=== PATIENT | female | born 1990 | race Caucasian/White ===

== ENCOUNTER 2016-11-20 07:37 | Emergency (ER) | payer BC, OTHER ==
[2016-11-20] MEDS ORDERED: ONDANSETRON 4 MG/2 ML VIAL IVP STA (08:21)
[2016-11-20] MEDS ORDERED: HYDROmorphone 1 MG/ML 1 ML SYRINGE IVP STA ×2 (08:21→11:20)
--- NOTE | 2016-11-20 08:28 | ED ---
Abdominal Pain HPI - General Chief Complaint: Abdominal Pain Stated Complaint: vomiting, abd pain Time Seen by Provider: 11/20/16 08:13 Source: patient, family, RN notes reviewed Mode of arrival: wheelchair Limitations: no limitations - History of Present Illness Initial Comments: Patient is a 26-year-old female presents to the emergency room for evaluation of abdominal pain. Patient states been having on and off pain for the past month. Patient a she's been to [facility] and [facility] for the same issue. Patient states pain began around 4 AM this morning. Patient states she's been vomiting since 4 AM. Patient states the vomiting worsens her pain. Patient also states she began with vaginal bleeding this morning. Patient states her last menstrual period was 2 weeks ago. Patient states in April she was told by her TECHNOLOGY AUDITOR that she had ovarian cyst. Patient states she thinks her ovarian cyst ruptured. Patient denies pain or burning during urination, trouble urinating or blood in urine. Patient denies any history of abdominal surgeries. Patient states the pain is diffuse across her abdomen. Patient states the pain comes in waves. Patient states she was going to try to follow-up with her TECHNOLOGY AUDITOR this morning but the pain got too intense so she came here to be evaluated. Patient denies fevers, chills, weakness. Patient denies diarrhea. Patient denies trying new foods. Patient denies recent travel outside the country. - Related Data Home Medications Medication Instructions Recorded Confirmed ALPRAZolam [Xanax] 0.25 mg PO Q8HR PRN 09/14/15 11/20/16 Escitalopram Oxalate [Escitalopram 20 mg PO DAILY 11/20/16 11/20/16 Oxalate] Famotidine [Famotidine] 20 mg PO DAILY 11/20/16 11/20/16 Norethindrone [Norethindrone] 0.35 mg PO DAILY 11/20/16 11/20/16 Ondansetron Odt [Zofran ODT] 4 mg PO TID PRN 11/20/16 11/20/16 Previous Rx's Medication Instructions Recorded Acetaminophen with Codeine 1 tab PO Q4H PRN #12 tab 11/20/16 [Tylenol w/codeine #3] Allergies Allergy/AdvReac Type Severity Reaction Status Date / Time Sulfa (Sulfonamide Allergy Dyspnea Verified 11/20/16 08:52 Antibiotics) Review of Systems ROS Statement: Those systems with pertinent positive or pertinent negative responses have been documented in the HPI. ROS Other: All systems not noted in ROS Statement are negative. Past Medical History Past Medical History: No Reported History Additional Past Medical History / Comment(s): ovarian cysts History of Any Multi-Drug Resistant Organisms: None Reported Past Surgical History: Adenoidectomy Past Psychological History: Anxiety, Depression Smoking Status: Former smoker Past Alcohol Use History: None Reported Past Drug Use History: Marijuana General Exam - General Exam Comments Initial Comments: Laying in exam room, uncomfortable secondary to pain Limitations: no limitations General appearance: alert, in no apparent distress Head exam: Present: atraumatic, normocephalic, normal inspection Eye exam: Present: normal appearance ENT exam: Present: normal exam Neck exam: Present: normal inspection Respiratory exam: Present: normal lung sounds bilaterally. Absent: respiratory distress Cardiovascular Exam: Present: regular rate, normal rhythm, normal heart sounds GI/Abdominal exam: Present: soft, tenderness (RLQ), normal bowel sounds. Absent : distended, guarding, rebound, rigid External exam: Present: normal external exam Speculum exam: Present: vaginal bleeding By manual exam: Present: adnexal tenderness (right) Extremities exam: Present: normal inspection Back exam: Present: normal inspection Neurological exam: Present: alert, oriented X3, CN II-XII intact, normal gait Psychiatric exam: Present: normal affect, normal mood Skin exam: Present: warm, dry, intact, normal color. Absent: rash Course Vital Signs 11/20/16 11/20/16 07:39 10:58 Temperature 97.1 F L 98 F Pulse Rate 69 66 Respiratory 22 16 Rate Blood Pressure 137/79 116/69 O2 Sat by Pulse 98 98 Oximetry Medical Decision Making - Medical Decision Making Patient is a 26-year-old female presents emergency room for evaluation of abdominal pain, nausea and vomiting. Gallbladder and appendix ultrasound showed no concerning findings. Transvaginal ultrasound: There is 3.47 L simple appearing cyst right ovary. There is small amount of free fluid in the pelvic cul-de-sac, nonspecific finding. Differential includes recent ovarian cyst rupture. Urine test negative. Patient states feeling better after medications given. Will send patient home with medications and advised her to follow-up with her TECHNOLOGY AUDITOR. Patient states she understands everything that was discussed with her. Return parameters discussed. Case discussed with Dr. Caballero. - Lab Data Result diagrams: 11/20/16 07:56 11/20/16 07:56 Lab Results 11/20/16 11/20/16 11/20/16 Range/Units 07:56 07:56 07:56 WBC 12.5 H (3.8-10.6) k/uL RBC 4.69 (3.80-5.40) m/uL Hgb 13.7 (11.4-16.0) gm/dL Hct 41.1 (34.0-46.0) % MCV 87.6 (80.0-100.0) fL MCH 29.2 (25.0-35.0) pg MCHC 33.4 (31.0-37.0) g/dL RDW 14.6 (11.5-15.5) % Plt Count 324 (150-450) k/uL Neutrophils % (Manual) 83.0 % Lymphocytes % (Manual) 15.0 % Monocytes % (Manual) 1.0 % Eosinophils % (Manual) 1.0 % Neutrophils # (Manual) 10.4 H (1.3-7.7) k/uL Lymphocytes # (Manual) 1.9 (1.0-4.8) k/uL Monocytes # (Manual) 0.1 (0-1.0) k/uL Eosinophils # (Manual) 0.1 (0-0.7) k/uL Nucleated RBCs 0 (0-0) /100 WBC Manual Slide Review Performed RBC Morphology Normal Sodium 140 (137-145) mmol/L Potassium 3.6 (3.5-5.1) mmol/L Chloride 104 (98-107) mmol/L Carbon Dioxide 24 (22-30) mmol/L Anion Gap 12 mmol/L BUN 12 (7-17) mg/dL Creatinine 0.67 (0.52-1.04) mg/dL Est GFR (MDRD) Af Amer >60 (>60 ml/min/1.73 sqM) Est GFR (MDRD) Non-Af >60 (>60 ml/min/1.73 sqM) Glucose 117 H (74-99) mg/dL Calcium 9.3 (8.4-10.2) mg/dL Total Bilirubin 0.7 (0.2-1.3) mg/dL AST 17 (14-36) U/L ALT 30 (9-52) U/L Alkaline Phosphatase 42 (38-126) U/L Total Protein 6.7 (6.3-8.2) g/dL Albumin 4.1 (3.5-5.0) g/dL Amylase 48 (30-110) U/L Lipase 102 (23-300) U/L Urine Color Urine Appearance (Clear) Urine pH (5.0-8.0) Ur Specific [place] (1.001-1.035) Urine Protein (Negative) Urine Glucose (UA) (Negative) Urine Ketones (Negative) Urine Blood (Negative) Urine Nitrate (Negative) Urine Bilirubin (Negative) Urine Urobilinogen (<2.0) mg/dL Ur Leukocyte Esterase (Negative) Urine RBC (0-5) /hpf Urine WBC (0-5) /hpf Ur Squamous Epith Cells (0-4) /hpf Urine Mucus (None) /hpf Urine HCG, Qual (Not Detectd) Trichomonas Ag (Rapid) (Negative) 11/20/16 11/20/16 11/20/16 Range/Units 07:56 07:56 08:37 WBC (3.8-10.6) k/uL RBC (3.80-5.40) m/uL Hgb (11.4-16.0) gm/dL Hct (34.0-46.0) % MCV (80.0-100.0) fL MCH (25.0-35.0) pg MCHC (31.0-37.0) g/dL RDW (11.5-15.5) % Plt Count (150-450) k/uL Neutrophils % (Manual) % Lymphocytes % (Manual) % Monocytes % (Manual) % Eosinophils % (Manual) % Neutrophils # (Manual) (1.3-7.7) k/uL Lymphocytes # (Manual) (1.0-4.8) k/uL Monocytes # (Manual) (0-1.0) k/uL Eosinophils # (Manual) (0-0.7) k/uL Nucleated RBCs (0-0) /100 WBC Manual Slide Review RBC Morphology Sodium (137-145) mmol/L Potassium (3.5-5.1) mmol/L Chloride (98-107) mmol/L Carbon Dioxide (22-30) mmol/L Anion Gap mmol/L BUN (7-17) mg/dL Creatinine (0.52-1.04) mg/dL Est GFR (MDRD) Af Amer (>60 ml/min/1.73 sqM) Est GFR (MDRD) Non-Af (>60 ml/min/1.73 sqM) Glucose (74-99) mg/dL Calcium (8.4-10.2) mg/dL Total Bilirubin (0.2-1.3) mg/dL AST (14-36) U/L ALT (9-52) U/L Alkaline Phosphatase (38-126) U/L Total Protein (6.3-8.2) g/dL Albumin (3.5-5.0) g/dL Amylase (30-110) U/L Lipase (23-300) U/L Urine Color Red Urine Appearance Turbid H (Clear) Urine pH 8.5 H (5.0-8.0) Ur Specific [place] 1.014 (1.001-1.035) Urine Protein 1+ H (Negative) Urine Glucose (UA) Negative (Negative) Urine Ketones 1+ H (Negative) Urine Blood Large H (Negative) Urine Nitrate Negative (Negative) Urine Bilirubin Negative (Negative) Urine Urobilinogen <2.0 (<2.0) mg/dL Ur Leukocyte Esterase Small H (Negative) Urine RBC >182 H (0-5) /hpf Urine WBC 133 H (0-5) /hpf Ur Squamous Epith Cells 6 H (0-4) /hpf Urine Mucus Occasional H (None) /hpf Urine HCG, Qual Not Detected (Not Detectd) Trichomonas Ag (Rapid) Negative (Negative) Disposition Clinical Impression: Ovarian cyst, right Disposition: HOME SELF-CARE Condition: Good Instructions: Ovarian Cyst (ED) Additional Instructions: Please follow-up with TECHNOLOGY AUDITOR. Take pain medications as needed. If any new symptom arises or symptoms worsen, return to ER as soon as possible. Prescriptions: Acetaminophen with Codeine [Tylenol w/codeine #3] 1 tab PO Q4H PRN #12 tab PRN Reason: Pain Referrals: Catherine Laboy MD [Primary Care Provider] - 1-2 days Time of Disposition: 11:20
[2016-11-20 08:36] LABS: Appearance,Urine Turbid (Clear); Bilirubin,Urine Negative (Negative); Glucose,Urine (UA) Negative (Negative); Ketones,Urine 1+ (Negative); Leukocyte Esterase,Urine Small (Negative); Mucus,Urine Occasional /hpf; Nitrite,Urine Negative (Negative); PH, Urine 8.5 (5.0-8.0); Particle Count 13473; Protein,Urine 1+ (Negative); RBC,Urine >182 /hpf (0-5); Specific Gravity,Urine 1.014 (1.001-1.035); Squamous Epithelial Cell,Urine 6 /hpf (0-4); UA Billing (MACRO vs. MICRO) MICRO; Urobilinogen,Urine <2.0 mg/dL (<2.0); WBC,Urine 133 /hpf (0-5)
[2016-11-20 08:43] LABS: ALT 30 U/L (9-52); AST 17 U/L (14-36); Alkaline Phosphatase 42 U/L (38-126); Amylase 48 U/L (30-110); Anion Gap 12 mmol/L; Blood Urea Nitrogen 12 mg/dL (7-17); Calcium 9.3 mg/dL (8.4-10.2); Carbon Dioxide 24 mmol/L (22-30); Chloride 104 mmol/L (98-107); Glucose 117 mg/dL (74-99); Non-African American GFR(MDRD) >60 (>60 ml/min/1.73 sqM); Potassium 3.6 mmol/L (3.5-5.1); Sodium 140 mmol/L (137-145); Total Bilirubin 0.7 mg/dL (0.2-1.3); Total Protein 6.7 g/dL (6.3-8.2)
[2016-11-20 08:48] LABS: Aty Lym Flag Slight; CH 29.8; CHCM 34.2; HCT 41.1 % (34.0-46.0); HDW 2.62; HGB 13.7 gm/dL (11.4-16.0); MCH 29.2 pg (25.0-35.0); MCHC 33.4 g/dL (31.0-37.0); MCV 87.6 fL (80.0-100.0); Mean Platelet Volume 7.1; RBC 4.69 m/uL (3.80-5.40); RDW 14.6 % (11.5-15.5); WBC 12.5 k/uL (3.8-10.6); WBC (Perox) 12.46
[2016-11-20] MEDS ORDERED: METOCLOPRAMIDE 5 MG/ML 2 ML VIAL IVP STA (09:00)
[2016-11-20] MEDS ORDERED: SODIUM CHLORIDE 0.9% 1,000 ML IV ONE (09:00)
[2016-11-20 09:01] LABS: Add Differential Manual Differential
[2016-11-20] MEDS ORDERED: PROMETHAZINE INJ 12.5 MG in SODIUM CHLORIDE 0.9% 50 ML IVPB STA (09:01)
[2016-11-20 09:03] LABS: Manual Review Performed; Nucleated Red Blood Cells 0 /100 WBC (0-0); Total Cells Counted 100
[2016-11-20 09:05] LABS: RBC Morphology Normal
[2016-11-20] MEDS ORDERED: KETOROLAC 30 MG/ML 1 ML VIAL IVP STA (10:05)
--- NOTE | 2016-11-20 10:25 | US ---
EXAMINATION TYPE: US abdomen limited DATE OF EXAM: 11/20/2016 9:29 AM COMPARISON: NONE CLINICAL HISTORY: Pain. Pelvic pain, nausea and vomiting EXAM MEASUREMENTS: Liver Length: 14.6 cm Gallbladder Wall: 0.3 cm CBD: 0.3 cm Right Kidney: 11.4 x 4.7 x 4.0 cm TECHNOLOGIST IMPRESSION: Pancreas: appears wnl Liver: wnl Gallbladder: no evidence of stones Evidence for sonographic Lara's sign: no CBD: wnl Right Kidney: no evidence of hydronephrosis Pancreas appears within normal limits on images saved. IVC is seen near hepatic dome. Visualized live r is unremarkable. Common bile duct is not dilated. Gallbladder is seen with prominent fold or phrygi an cap. No shadowing mobile gallstones are identified. IMPRESSION: No gallstones or ultrasound evidence for acute cholecystitis.
--- NOTE | 2016-11-20 10:29 | US ---
EXAMINATION TYPE: US transvaginal DATE OF EXAM: 11/20/2016 9:50 AM COMPARISON: NONE CLINICAL HISTORY: Pain. Pelvic pain, nausea and vomiting, irregular menses TECHNIQUE: Transvaginal (TV) Date of LMP: 2-3 weeks ago EXAM MEASUREMENTS: Uterus: 8.4 x 4.1 x 4.6 cm Endometrial Stripe: 0.5 cm Right Ovary: 4.7 x 3.5 x 3.2 cm Left Ovary: 3.2 x 1.7 x 1.7 cm TECHNOLOGIST IMPRESSION: 1. Uterus: Anteverted 2. Endometrium: appears wnl 3. Right Ovary: cystic area = 3.4 x 3.0 x 3.3cm 4. Left Ovary: appears wnl Spectral, color and waveform doppler imaging shows good arterial and venous flow within the ovaries ; . 5. Bilateral Adnexa: wnl 6. Posterior cul-de-sac: small amount of free fluid Uterus is heterogeneous in appearance. Tiny nabothian cyst is seen in the cervix. Tiny amount of free fluid is seen in pelvic cul-de-sac. Nonspecific finding. Both ovaries are identified. Within right ovary there is 3.4 x 3.0 cm round anechoic lesion with incr eased through transmission felt to reflect simple cyst Satisfactory blood flow to both ovaries is see n.. Arterial flow to right ovary is documented on still images. IMPRESSION: There is 3.4 cm simple appearing cyst right ovary. There is small amount of free fluid in pelvic cul-de-sac, nonspecific finding. Differential includes recent ovarian cyst rupture.
--- NOTE | 2016-11-20 10:30 | US ---
EXAMINATION TYPE: US abdomen APPY DATE OF EXAM: 11/20/2016 9:40 AM COMPARISON: NONE CLINICAL HISTORY: Pain. Pelvic pain, nausea and vomiting APPENDIX AP Diameter (normal < 6mm): 0.4 mm Measured outer wall to outer wall. Is the appendix seen in its entirety from the proximal cecum to distal end: no, tubular structure no ry = 0.4cm, possible appendix Is the appendix compressible: yes Does the appendix wall appear hypervascular: no Is an appendicolith present: no Is there inflammatory changes or free fluid present: no TECHNOLOGIST IMPRESSION: Scanning of the right lower quadrant shows partial visualization of tubular shaped structure measurin g 4 mm in diameter could reflect portion of normal-appearing appendix. No suspicious hypervascularity is identified. No worrisome focal fluid collection is seen. No shadowing appendicolith is noted. IMPRESSION: No ultrasound evidence for acute appendicitis though the appendix is not completely imag ed in its entirety.
[2016-11-20 10:59] VITALS: BP 116/69; PULSE 66; RESP 16; TEMP 98
== END 2016-11-20 11:35 | disposition home or self-care (01) ==
LOC: EC 07:37
DX: N83.201 Unspecified ovarian cyst, right side (principal); R10.84 Generalized abdominal pain; R11.10 Vomiting, unspecified; F32.9 Major depressive disorder, single episode, unspecified; F41.9 Anxiety disorder, unspecified; Z32.02 Encounter for pregnancy test, result negative; Z79.899 Other long term (current) drug therapy; Z88.2 Allergy status to sulfonamides
CPT/HCPCS: 99284; 36415; 80053; 87591; 87491; 82150; 83690; 85025; 81001; 81025; 87808; 87070; 76705; 76830; 96374; 96375 ×3; 96376; 96361; J2550; J2405; J1885; J1170; 87205; 93975

== ENCOUNTER 2016-11-22 07:01 | Emergency (ER) | payer OTHER ==
[2016-11-22] MEDS ORDERED: SODIUM CHLORIDE 0.9% 1,000 ML IV STA (07:44)
[2016-11-22] MEDS ORDERED: ONDANSETRON 4 MG/2 ML VIAL IVP STA (07:44)
[2016-11-22] MEDS ORDERED: SODIUM CHLORIDE 0.9% 500 ML IV STA (07:44)
[2016-11-22] MEDS ORDERED: MORPHINE SULFATE 4 MG/ML SYRINGE IV STA (07:44)
[2016-11-22] MEDS ORDERED: LORazepam 2 MG/ML SYRINGE IV STA (07:45)
[2016-11-22] MEDS ORDERED: PANTOPRAZOLE 40 MG/10 ML VIAL IVP STA (07:45)
[2016-11-22] MEDS ORDERED: RX INFO: IV CONTRAST WAS GIVEN 1 EACH MISC MISCELLANE PRN (07:52)
[2016-11-22 08:13] LABS: Partial Thromboplastin Time 24.2 sec (22.0-30.0)
[2016-11-22 08:14] LABS: Aty Lym Flag Slight; CHCM 33.5; HCT 41.2 % (34.0-46.0); HDW 2.54; HGB 13.3 gm/dL (11.4-16.0); MCH 29.1 pg (25.0-35.0); MCHC 32.3 g/dL (31.0-37.0); Mean Platelet Volume 7.4; RBC 4.58 m/uL (3.80-5.40); RDW 14.5 % (11.5-15.5); WBC 12.1 k/uL (3.8-10.6); WBC (Perox) 12.39
[2016-11-22 08:15] LABS: INR 1.1 (<1.1); Prothrombin Time 10.9 sec (9.0-12.0)
[2016-11-22 08:21] LABS: ALT 26 U/L (9-52); AST 14 U/L (14-36); Alkaline Phosphatase 35 U/L (38-126); Anion Gap 8 mmol/L; Blood Urea Nitrogen 18 mg/dL (7-17); Carbon Dioxide 28 mmol/L (22-30); Chloride 103 mmol/L (98-107); Glucose 94 mg/dL (74-99); Non-African American GFR(MDRD) >60 (>60 ml/min/1.73 sqM); Phosphorous 2.7 mg/dL (2.5-4.5); Potassium 3.9 mmol/L (3.5-5.1); Sodium 139 mmol/L (137-145); Total Bilirubin 0.4 mg/dL (0.2-1.3); Total Protein 6.2 g/dL (6.3-8.2)
[2016-11-22 08:34] LABS: Creatine Kinase 46 U/L (30-135)
[2016-11-22 08:48] LABS: Add Differential Manual Differential; Creatine Kinase MB <0.2 ng/mL (0.0-2.4); Troponin I <0.012 ng/mL (0.000-0.034)
[2016-11-22 08:49] LABS: Manual Review Performed; Nucleated Red Blood Cells 0 /100 WBC (0-0); Total Cells Counted 100
[2016-11-22 08:50] LABS: RBC Morphology Normal
[2016-11-22 08:59] LABS: Amorphous Sediment,Urine Occasional /hpf; Appearance,Urine Cloudy (Clear); Bilirubin,Urine Negative (Negative); Glucose,Urine (UA) Negative (Negative); Ketones,Urine Negative (Negative); Leukocyte Esterase,Urine Negative (Negative); Nitrite,Urine Negative (Negative); PH, Urine 7.5 (5.0-8.0); Particle Count 21047; Protein,Urine Negative (Negative); Specific Gravity,Urine 1.008 (1.001-1.035); Squamous Epithelial Cell,Urine 1 /hpf (0-4); UA Billing (MACRO vs. MICRO) MICRO; Urobilinogen,Urine <2.0 mg/dL (<2.0)
[2016-11-22] MEDS ORDERED: diphenhydrAMINE 50 MG/ML 1 ML VIAL IVP STA (09:27)
[2016-11-22] MEDS ORDERED: MORPHINE SULFATE 4 MG/ML SYRINGE IVP STA (09:27)
[2016-11-22] MEDS ORDERED: METOCLOPRAMIDE 5 MG/ML 2 ML VIAL IVP STA (09:27)
--- NOTE | 2016-11-22 09:46 | CT ---
EXAMINATION TYPE: CT abdomen pelvis w con DATE OF EXAM: 11/22/2016 9:33 AM HISTORY: Pain, nausea and vomiting, recent ruptured ovarian cyst CT DLP: 432mGycm Automated Exposure Control for Dose Reduction was Utilized. CONTRAST: CT scan of the abdomen and pelvis is performed without oral but with IV Contrast, patient injected wi th 100 mL of Omnipaque 300. COMPARISON: Limited abdominal, appendix, and pelvic ultrasound November 20, 2016. FINDINGS: LUNG BASES: No significant abnormality is appreciated. LIVER/GB: No significant abnormality is appreciated. PANCREAS: No significant abnormality is seen. SPLEEN: No significant abnormality is seen. ADRENALS: No significant abnormality is seen. KIDNEYS: No significant abnormality is seen. BOWEL: Evaluation of bowel is suboptimal due to lack of enteric contrast. There is no suspicious smal l or large bowel dilatation seen. Appendix appears within normal limits in size from the cecum seen b est near axial image 58 and also identified on coronal images 17 through 21. There is small bowel fec es sign involving the distal ileum. There is ill-defined fluid and fat stranding centered in the righ t lower quadrant of uncertain etiology. No well-formed fluid collection or abscess seen. UTERUS/ADNEXA: Uterus is anteverted in shape and within normal limits in size. Tiny amount of free fl uid is seen in pelvis best near axial image 67 just anterior to the rectum. Corresponding to recent u ltrasound there is cystic lesion right ovary measuring 3.1 x 2.9 cm correlates with simple appearing cyst on ultrasound 2 days ago. No left adnexal mass is present. Tubular shaped gas-filled structure i n the vaginal canal is consistent with tampon. LYMPH NODES: No greater than 1cm abdominal or pelvic lymph nodes are appreciated. OSSEOUS STRUCTURES: No significant abnormality is seen. OTHER: No significant additional abnormality is seen. IMPRESSION: Appendix is not suspiciously dilated or thickened. There is a small bowel feces sign cons istent with delayed passage of ingested material to colonic level. No suspicious bowel dilatation is seen to suggest obstruction. Tiny amount of free fluid in pelvis is nonspecific. A 3 cm simple appear ing right ovarian cyst is confirmed. Ill-defined fluid right lower quadrant is suspicious for inflamm atory process at this level though etiology is uncertain due to unremarkable appearance of appendix a t this level. One would have to consider possibly a tip appendicitis.
--- NOTE | 2016-11-22 09:49 | ED ---
General Adult HPI - General Chief complaint: Abdominal Pain Stated complaint: Vomiting/Abdominal Pain Time Seen by Provider: 11/22/16 07:15 Source: patient, RN notes reviewed, old records reviewed Mode of arrival: wheelchair Limitations: no limitations - History of Present Illness Initial comments: This is a 26-year-old female here for abdominal pain bowel and pelvic pain. Nausea vomiting. Patient's not feeling well. Patient's had been actively vomiting for about 2 days. Patient was in the ER 2 days ago for similar symptoms. No diarrhea no fevers. No travel history or sick contacts, patient did have ovarian cyst at that time no pain control modifying factors for symptoms at home. Patient denies history of drug abuse - Related Data Home Medications Medication Instructions Recorded Confirmed ALPRAZolam [Xanax] 0.25 mg PO Q8HR PRN 09/14/15 11/22/16 Escitalopram Oxalate [Escitalopram 20 mg PO DAILY 11/20/16 11/22/16 Oxalate] Famotidine [Famotidine] 20 mg PO DAILY 11/20/16 11/22/16 Norethindrone [Norethindrone] 0.35 mg PO DAILY 11/20/16 11/22/16 Ondansetron Odt [Zofran ODT] 4 mg PO TID PRN 11/20/16 11/22/16 Previous Rx's Medication Instructions Recorded Acetaminophen with Codeine 1 tab PO Q4H PRN #12 tab 11/20/16 [Tylenol w/codeine #3] Allergies Allergy/AdvReac Type Severity Reaction Status Date / Time Sulfa (Sulfonamide Allergy Dyspnea Verified 11/22/16 09:01 Antibiotics) Review of Systems ROS Statement: Those systems with pertinent positive or pertinent negative responses have been documented in the HPI. ROS Other: All systems not noted in ROS Statement are negative. Past Medical History Past Medical History: No Reported History Additional Past Medical History / Comment(s): ovarian cysts History of Any Multi-Drug Resistant Organisms: None Reported Past Surgical History: Adenoidectomy Past Psychological History: Anxiety, Depression Smoking Status: Former smoker Past Alcohol Use History: None Reported Past Drug Use History: Marijuana General Exam Limitations: no limitations General appearance: alert, in no apparent distress Head exam: Present: atraumatic, normocephalic, normal inspection Eye exam: Present: normal appearance, PERRL, EOMI. Absent: scleral icterus, conjunctival injection, periorbital swelling ENT exam: Present: normal exam, mucous membranes moist Neck exam: Present: normal inspection. Absent: tenderness, meningismus, lymphadenopathy Respiratory exam: Present: normal lung sounds bilaterally. Absent: respiratory distress, wheezes, rales, rhonchi, stridor Cardiovascular Exam: Present: regular rate, normal rhythm, normal heart sounds. Absent: systolic murmur, diastolic murmur, rubs, gallop, clicks GI/Abdominal exam: Present: soft, normal bowel sounds. Absent: distended, tenderness, guarding, rebound, rigid Extremities exam: Present: normal inspection, full ROM, normal capillary refill. Absent: tenderness, pedal edema, joint swelling, calf tenderness Back exam: Present: normal inspection Neurological exam: Present: alert, oriented X3, CN II-XII intact Psychiatric exam: Present: normal affect, normal mood Skin exam: Present: warm, dry, intact, normal color. Absent: rash Course Vital Signs 11/22/16 07:22 Temperature 97.7 F Pulse Rate 102 H Respiratory 20 Rate Blood Pressure 144/92 O2 Sat by Pulse 98 Oximetry - Reevaluation(s) Reevaluation #1: 11/22/16 09:48 Patient not having good and adequate pain control and nausea control Reevaluation #2: 11/22/16 09:48 After second dosing of medications patient's symptoms are improved Medical Decision Making - Medical Decision Making 26 for female here for evaluation of nausea vomiting. Patient's gastroenteritis , patient with acute nausea and vomiting. CT is negative ultrasound from yesterday labwork as noted, as well as laboratory, patient CT is also noted from today and patient can be discharged home - Lab Data Result diagrams: 11/22/16 07:46 11/22/16 07:46 Lab Results 11/22/16 11/22/16 11/22/16 Range/Units 07:46 07:46 07:46 WBC 12.1 H (3.8-10.6) k/uL RBC 4.58 (3.80-5.40) m/uL Hgb 13.3 (11.4-16.0) gm/dL Hct 41.2 (34.0-46.0) % MCV 90.0 (80.0-100.0) fL MCH 29.1 (25.0-35.0) pg MCHC 32.3 (31.0-37.0) g/dL RDW 14.5 (11.5-15.5) % Plt Count 298 (150-450) k/uL Neutrophils % (Manual) 68.0 % Band Neutrophils % 2.0 % Lymphocytes % (Manual) 20.0 % Monocytes % (Manual) 7.0 % Eosinophils % (Manual) 3.0 % Neutrophils # (Manual) 8.5 H (1.3-7.7) k/uL Lymphocytes # (Manual) 2.4 (1.0-4.8) k/uL Monocytes # (Manual) 0.8 (0-1.0) k/uL Eosinophils # (Manual) 0.4 (0-0.7) k/uL Nucleated RBCs 0 (0-0) /100 WBC Manual Slide Review Performed RBC Morphology Normal PT (9.0-12.0) sec INR (<1.1) APTT (22.0-30.0) sec Sodium 139 (137-145) mmol/L Potassium 3.9 (3.5-5.1) mmol/L Chloride 103 (98-107) mmol/L Carbon Dioxide 28 (22-30) mmol/L Anion Gap 8 mmol/L BUN 18 H (7-17) mg/dL Creatinine 0.67 (0.52-1.04) mg/dL Est GFR (MDRD) Af Amer >60 (>60 ml/min/1.73 sqM) Est GFR (MDRD) Non-Af >60 (>60 ml/min/1.73 sqM) Glucose 94 (74-99) mg/dL Plasma Lactic Acid Jean-Paul (0.7-2.0) mmol/L Calcium 9.0 (8.4-10.2) mg/dL Phosphorus 2.7 (2.5-4.5) mg/dL Total Bilirubin 0.4 (0.2-1.3) mg/dL AST 14 (14-36) U/L ALT 26 (9-52) U/L Alkaline Phosphatase 35 L (38-126) U/L Total Creatine Kinase 46 (30-135) U/L CK-MB (CK-2) <0.2 (0.0-2.4) ng/mL CK-MB (CK-2) Rel Index Troponin I <0.012 (0.000-0.034) ng/mL Total Protein 6.2 L (6.3-8.2) g/dL Albumin 3.7 (3.5-5.0) g/dL Urine Color Urine Appearance (Clear) Urine pH (5.0-8.0) Ur Specific [place] (1.001-1.035) Urine Protein (Negative) Urine Glucose (UA) (Negative) Urine Ketones (Negative) Urine Blood (Negative) Urine Nitrite (Negative) Urine Bilirubin (Negative) Urine Urobilinogen (<2.0) mg/dL Ur Leukocyte Esterase (Negative) Ur Squamous Epith Cells (0-4) /hpf Amorphous Sediment (None) /hpf Urine HCG, Qual (Not Detectd) 11/22/16 11/22/16 11/22/16 Range/Units 07:46 08:04 08:45 WBC (3.8-10.6) k/uL RBC (3.80-5.40) m/uL Hgb (11.4-16.0) gm/dL Hct (34.0-46.0) % MCV (80.0-100.0) fL MCH (25.0-35.0) pg MCHC (31.0-37.0) g/dL RDW (11.5-15.5) % Plt Count (150-450) k/uL Neutrophils % (Manual) % Band Neutrophils % % Lymphocytes % (Manual) % Monocytes % (Manual) % Eosinophils % (Manual) % Neutrophils # (Manual) (1.3-7.7) k/uL Lymphocytes # (Manual) (1.0-4.8) k/uL Monocytes # (Manual) (0-1.0) k/uL Eosinophils # (Manual) (0-0.7) k/uL Nucleated RBCs (0-0) /100 WBC Manual Slide Review RBC Morphology PT 10.9 (9.0-12.0) sec INR 1.1 (<1.1) APTT 24.2 (22.0-30.0) sec Sodium (137-145) mmol/L Potassium (3.5-5.1) mmol/L Chloride (98-107) mmol/L Carbon Dioxide (22-30) mmol/L Anion Gap mmol/L BUN (7-17) mg/dL Creatinine (0.52-1.04) mg/dL Est GFR (MDRD) Af Amer (>60 ml/min/1.73 sqM) Est GFR (MDRD) Non-Af (>60 ml/min/1.73 sqM) Glucose (74-99) mg/dL Plasma Lactic Acid Jean-Paul 2.0 (0.7-2.0) mmol/L Calcium (8.4-10.2) mg/dL Phosphorus (2.5-4.5) mg/dL Total Bilirubin (0.2-1.3) mg/dL AST (14-36) U/L ALT (9-52) U/L Alkaline Phosphatase (38-126) U/L Total Creatine Kinase (30-135) U/L CK-MB (CK-2) (0.0-2.4) ng/mL CK-MB (CK-2) Rel Index Troponin I (0.000-0.034) ng/mL Total Protein (6.3-8.2) g/dL Albumin (3.5-5.0) g/dL Urine Color Light Yellow Urine Appearance Cloudy H (Clear) Urine pH 7.5 (5.0-8.0) Ur Specific [place] 1.008 (1.001-1.035) Urine Protein Negative (Negative) Urine Glucose (UA) Negative (Negative) Urine Ketones Negative (Negative) Urine Blood Trace H (Negative) Urine Nitrite Negative (Negative) Urine Bilirubin Negative (Negative) Urine Urobilinogen <2.0 (<2.0) mg/dL Ur Leukocyte Esterase Negative (Negative) Ur Squamous Epith Cells 1 (0-4) /hpf Amorphous Sediment Occasional H (None) /hpf Urine HCG, Qual (Not Detectd) 11/22/16 Range/Units 08:45 WBC (3.8-10.6) k/uL RBC (3.80-5.40) m/uL Hgb (11.4-16.0) gm/dL Hct (34.0-46.0) % MCV (80.0-100.0) fL MCH (25.0-35.0) pg MCHC (31.0-37.0) g/dL RDW (11.5-15.5) % Plt Count (150-450) k/uL Neutrophils % (Manual) % Band Neutrophils % % Lymphocytes % (Manual) % Monocytes % (Manual) % Eosinophils % (Manual) % Neutrophils # (Manual) (1.3-7.7) k/uL Lymphocytes # (Manual) (1.0-4.8) k/uL Monocytes # (Manual) (0-1.0) k/uL Eosinophils # (Manual) (0-0.7) k/uL Nucleated RBCs (0-0) /100 WBC Manual Slide Review RBC Morphology PT (9.0-12.0) sec INR (<1.1) APTT (22.0-30.0) sec Sodium (137-145) mmol/L Potassium (3.5-5.1) mmol/L Chloride (98-107) mmol/L Carbon Dioxide (22-30) mmol/L Anion Gap mmol/L BUN (7-17) mg/dL Creatinine (0.52-1.04) mg/dL Est GFR (MDRD) Af Amer (>60 ml/min/1.73 sqM) Est GFR (MDRD) Non-Af (>60 ml/min/1.73 sqM) Glucose (74-99) mg/dL Plasma Lactic Acid Jean-Paul (0.7-2.0) mmol/L Calcium (8.4-10.2) mg/dL Phosphorus (2.5-4.5) mg/dL Total Bilirubin (0.2-1.3) mg/dL AST (14-36) U/L ALT (9-52) U/L Alkaline Phosphatase (38-126) U/L Total Creatine Kinase (30-135) U/L CK-MB (CK-2) (0.0-2.4) ng/mL CK-MB (CK-2) Rel Index Troponin I (0.000-0.034) ng/mL Total Protein (6.3-8.2) g/dL Albumin (3.5-5.0) g/dL Urine Color Urine Appearance (Clear) Urine pH (5.0-8.0) Ur Specific [place] (1.001-1.035) Urine Protein (Negative) Urine Glucose (UA) (Negative) Urine Ketones (Negative) Urine Blood (Negative) Urine Nitrite (Negative) Urine Bilirubin (Negative) Urine Urobilinogen (<2.0) mg/dL Ur Leukocyte Esterase (Negative) Ur Squamous Epith Cells (0-4) /hpf Amorphous Sediment (None) /hpf Urine HCG, Qual Not Detected (Not Detectd) - Radiology Data Radiology results: report reviewed (CT head and pelvis is negative for acute disease), image reviewed Disposition Clinical Impression: Nausea & vomiting Disposition: HOME SELF-CARE Condition: Good Instructions: Acute Nausea and Vomiting (ED) Referrals: Catherine Laboy MD [Primary Care Provider] - 1-2 days
[2016-11-22 10:21] VITALS: BP 146/90; PULSE 86; RESP 16; TEMP 97.9
== END 2016-11-22 10:21 | disposition home or self-care (01) ==
LOC: EC 07:01
DX: K52.9 Noninfective gastroenteritis and colitis, unspecified (principal); F41.9 Anxiety disorder, unspecified; F32.9 Major depressive disorder, single episode, unspecified; Z87.891 Personal history of nicotine dependence; Z79.899 Other long term (current) drug therapy; Z79.3 Long term (current) use of hormonal contraceptives; Z88.2 Allergy status to sulfonamides
CPT/HCPCS: 96375 ×6; 96376 ×2; 96361 ×2; 96374 ×2; 99285; 99284; 36415; 93005; 80053; 82550; 82553; 83605; 84100; 84484; 85025; 85610; 85730; 81001; 81025; 87086; 74177; J2060; J2270; J1200; J2765; J2405; Q9967; C9113

== ENCOUNTER 2017-09-20 10:18 | Emergency (ER) | payer OTHER ==
[2017-09-20] MEDS ORDERED: ONDANSETRON 4 MG/2 ML VIAL IVP STA (10:26)
[2017-09-20] MEDS ORDERED: SODIUM CHLORIDE 0.9% 2,000 ML IV STA (10:26)
[2017-09-20] MEDS ORDERED: FAMOTIDINE 20 MG/2 ML VIAL IV STA (11:08)
[2017-09-20 11:27] LABS: Appearance,Urine Clear (Clear); Bilirubin,Urine Negative (Negative); Blood,Urine Negative (Negative); Color,Urine Yellow; Glucose,Urine (UA) Negative (Negative); Ketones,Urine 4+ (Negative); Leukocyte Esterase,Urine Negative (Negative); Nitrite,Urine Negative (Negative); Protein,Urine Trace (Negative); Specific Gravity,Urine 1.022 (1.001-1.035); Urobilinogen,Urine <2.0 mg/dL (<2.0)
[2017-09-20 11:36] LABS: ALT 32 U/L (9-52); AST 19 U/L (14-36); Alkaline Phosphatase 40 U/L (38-126); Amylase 55 U/L (30-110); Anion Gap 9 mmol/L; Blood Urea Nitrogen 12 mg/dL (7-17); Calcium 9.2 mg/dL (8.4-10.2); Carbon Dioxide 23 mmol/L (22-30); Chloride 102 mmol/L (98-107); Glucose 91 mg/dL (74-99); Lipase 104 U/L (23-300); Potassium 3.5 mmol/L (3.5-5.1); Sodium 134 mmol/L (137-145); Total Bilirubin 0.5 mg/dL (0.2-1.3); Total Protein 6.4 g/dL (6.3-8.2)
--- NOTE | 2017-09-20 11:45 | ED ---
Nausea/Vomiting/Diarrhea HPI - General Chief complaint: Nausea/Vomiting/Diarrhea Stated complaint: Vomiting Time Seen by Provider: 09/20/17 10:24 Source: patient, RN notes reviewed Mode of arrival: wheelchair Limitations: no limitations - History of Present Illness Initial comments: This a 27-year-old female presented emergency department with chief complaint of nausea vomiting diarrhea. Patient symptoms started vomiting yesterday. Patient states she has mild upper abdominal pain. Denies fever, chills, headache or dizziness. Denies any URI symptoms. Patient states that there is no chance . Patient states she gets depo shots. . Patient states nothing makes her symptoms better or worse. Patient offers no other complaints at this time. - Related Data Home Medications Medication Instructions Recorded Confirmed ALPRAZolam [Xanax] 0.25 mg PO Q8HR PRN 09/14/15 09/20/17 Medroxyprogesterone Acetate 150 mg IM Q90D 09/20/17 09/20/17 [Depo-Provera] Previous Rx's Medication Instructions Recorded Omeprazole 40 mg PO DAILY #14 capsule. 09/20/17 Ondansetron Odt [Zofran Odt] 4 mg PO Q8HR PRN #10 tab 09/20/17 Allergies Allergy/AdvReac Type Severity Reaction Status Date / Time Sulfa (Sulfonamide Allergy Dyspnea Verified 09/20/17 10:32 Antibiotics) Review of Systems ROS Statement: Those systems with pertinent positive or pertinent negative responses have been documented in the HPI. ROS Other: All systems not noted in ROS Statement are negative. Past Medical History Past Medical History: Asthma Additional Past Medical History / Comment(s): ovarian cysts History of Any Multi-Drug Resistant Organisms: None Reported Past Surgical History: Adenoidectomy Past Psychological History: Anxiety, Depression Smoking Status: Former smoker Past Alcohol Use History: None Reported Past Drug Use History: Marijuana General Exam Limitations: no limitations General appearance: alert, in no apparent distress Head exam: Present: atraumatic, normocephalic, normal inspection Respiratory exam: Present: normal lung sounds bilaterally. Absent: respiratory distress, wheezes, rales, rhonchi, stridor Cardiovascular Exam: Present: regular rate, normal rhythm, normal heart sounds. Absent: systolic murmur, diastolic murmur, rubs, gallop, clicks GI/Abdominal exam: Present: soft, normal bowel sounds. Absent: distended, tenderness, guarding, rebound, rigid Back exam: Absent: CVA tenderness (R), CVA tenderness (L) Skin exam: Present: warm, dry, intact, normal color. Absent: rash Course Vital Signs 09/20/17 09/20/17 10:20 11:49 Temperature 98.9 F Pulse Rate 68 Respiratory 18 19 Rate Blood Pressure 118/73 O2 Sat by Pulse 99 Oximetry Medical Decision Making - Medical Decision Making 27-year-old female presented unresponsive for nausea vomiting diarrhea. Patient symptoms are consistent with gastroenteritis. Patient was well- hydrated and she has 4+ ketones in her urine. Patient's remaining laboratory unremarkable. Patient we discharged with antiemetics and antacids. Return parameters were discussed. - Lab Data Result diagrams: 09/20/17 11:09 09/20/17 11:09 Lab Results 09/20/17 09/20/17 09/20/17 Range/Units 10:55 10:55 11:09 WBC (3.8-10.6) k/uL RBC (3.80-5.40) m/uL Hgb (11.4-16.0) gm/dL Hct (34.0-46.0) % MCV (80.0-100.0) fL MCH (25.0-35.0) pg MCHC (31.0-37.0) g/dL RDW (11.5-15.5) % Plt Count (150-450) k/uL Sodium 134 L (137-145) mmol/L Potassium 3.5 (3.5-5.1) mmol/L Chloride 102 (98-107) mmol/L Carbon Dioxide 23 (22-30) mmol/L Anion Gap 9 mmol/L BUN 12 (7-17) mg/dL Creatinine 0.66 (0.52-1.04) mg/dL Est GFR (MDRD) Af Amer >60 (>60 ml/min/1.73 sqM) Est GFR (MDRD) Non-Af >60 (>60 ml/min/1.73 sqM) Glucose 91 (74-99) mg/dL Calcium 9.2 (8.4-10.2) mg/dL Total Bilirubin 0.5 (0.2-1.3) mg/dL AST 19 (14-36) U/L ALT 32 (9-52) U/L Alkaline Phosphatase 40 (38-126) U/L Total Protein 6.4 (6.3-8.2) g/dL Albumin 4.0 (3.5-5.0) g/dL Amylase 55 (30-110) U/L Lipase 104 (23-300) U/L Urine Color Yellow Urine Appearance Clear (Clear) Urine pH 6.0 (5.0-8.0) Ur Specific [place] 1.022 (1.001-1.035) Urine Protein Trace H (Negative) Urine Glucose (UA) Negative (Negative) Urine Ketones 4+ H (Negative) Urine Blood Negative (Negative) Urine Nitrite Negative (Negative) Urine Bilirubin Negative (Negative) Urine Urobilinogen <2.0 (<2.0) mg/dL Ur Leukocyte Esterase Negative (Negative) Urine HCG, Qual Not Detected (Not Detectd) 09/20/17 Range/Units 11:09 WBC 10.4 (3.8-10.6) k/uL RBC 4.45 (3.80-5.40) m/uL Hgb 13.0 (11.4-16.0) gm/dL Hct 39.3 (34.0-46.0) % MCV 88.4 (80.0-100.0) fL MCH 29.2 (25.0-35.0) pg MCHC 33.0 (31.0-37.0) g/dL RDW 13.9 (11.5-15.5) % Plt Count 278 (150-450) k/uL Sodium (137-145) mmol/L Potassium (3.5-5.1) mmol/L Chloride (98-107) mmol/L Carbon Dioxide (22-30) mmol/L Anion Gap mmol/L BUN (7-17) mg/dL Creatinine (0.52-1.04) mg/dL Est GFR (MDRD) Af Amer (>60 ml/min/1.73 sqM) Est GFR (MDRD) Non-Af (>60 ml/min/1.73 sqM) Glucose (74-99) mg/dL Calcium (8.4-10.2) mg/dL Total Bilirubin (0.2-1.3) mg/dL AST (14-36) U/L ALT (9-52) U/L Alkaline Phosphatase (38-126) U/L Total Protein (6.3-8.2) g/dL Albumin (3.5-5.0) g/dL Amylase (30-110) U/L Lipase (23-300) U/L Urine Color Urine Appearance (Clear) Urine pH (5.0-8.0) Ur Specific [place] (1.001-1.035) Urine Protein (Negative) Urine Glucose (UA) (Negative) Urine Ketones (Negative) Urine Blood (Negative) Urine Nitrite (Negative) Urine Bilirubin (Negative) Urine Urobilinogen (<2.0) mg/dL Ur Leukocyte Esterase (Negative) Urine HCG, Qual (Not Detectd) Disposition Clinical Impression: Gastroenteritis, Abdominal pain Disposition: HOME SELF-CARE Condition: Stable Instructions: Gastroenteritis (ED) Additional Instructions: Please return to the Emergency Department if symptoms worsen or any other concerns. Prescriptions: Omeprazole 40 mg PO DAILY #14 capsule. Ondansetron Odt [Zofran Odt] 4 mg PO Q8HR PRN #10 tab PRN Reason: Nausea Referrals: Catherine Laboy MD [Primary Care Provider] - 1-2 days Time of Disposition: 12:39
[2017-09-20 11:53] LABS: Basophils % (A) 0 %; Eosinophils % (A) 0 %; HCT 39.3 % (34.0-46.0); Lymphocytes # (A) 2.3 k/uL (1.0-4.8); Lymphocytes % (A) 22 %; MCH 29.2 pg (25.0-35.0); MCV 88.4 fL (80.0-100.0); Mean Platelet Volume 7.8; Monocytes # (A) 0.6 k/uL (0-1.0); Monocytes % (A) 5 %; Neutrophils % (A) 67 %; Platelet Count 278 k/uL (150-450); RBC 4.45 m/uL (3.80-5.40); RDW 13.9 % (11.5-15.5); WBC 10.4 k/uL (3.8-10.6)
[2017-09-20] MEDS ORDERED: METOCLOPRAMIDE 5 MG/ML 2 ML VIAL IVP STA (12:17)
[2017-09-20] MEDS ORDERED: MORPHINE SULFATE 2 MG/ML SYRINGE IVP STA (12:17)
[2017-09-20 13:13] VITALS: BP 120/73; PULSE 58; RESP 18; TEMP 98.8
== END 2017-09-20 13:11 | disposition home or self-care (01) ==
LOC: EC 10:18
DX: K52.9 Noninfective gastroenteritis and colitis, unspecified (principal); Z87.891 Personal history of nicotine dependence; Z79.3 Long term (current) use of hormonal contraceptives; Z88.2 Allergy status to sulfonamides
CPT/HCPCS: 99284; 96374; 96375 ×3; 96361 ×2; 36415; 80053; 82150; 83690; 85025; 81003; 81025; J2765; J2405; J2270

== ENCOUNTER 2017-09-21 02:14 | Emergency (ER) | payer OTHER ==
[2017-09-21 02:19] VITALS: RESP 18
[2017-09-21] MEDS ORDERED: SODIUM CHLORIDE 0.9% 1,000 ML IV STA (02:29)
[2017-09-21] MEDS ORDERED: diphenhydrAMINE 50 MG/ML 1 ML VIAL IVP STA (02:29)
[2017-09-21] MEDS ORDERED: HYDROmorphone 0.5 MG/0.5 ML SYRINGE IVP STA (02:29)
[2017-09-21] MEDS ORDERED: METOCLOPRAMIDE 5 MG/ML 2 ML VIAL IVP STA (02:29)
--- NOTE | 2017-09-21 02:33 | ED ---
General Adult HPI - General Chief complaint: Abdominal Pain Stated complaint: Abdominal Pain/Vomiting Time Seen by Provider: 09/21/17 02:20 Source: patient, RN notes reviewed Mode of arrival: ambulatory Limitations: no limitations - History of Present Illness Initial comments: This is a 27-year-old female who presents to the emergency department with chief complaint of nausea, vomiting and abdominal pain. Patient states she was seen here at 11 AM yesterday with the same complaint. She was diagnosed with gastroenteritis and discharged home with omeprazole and Zofran. Patient states that since being discharged home she continues to vomit and does not feel any better. She has had these symptoms since Saturday at 2am. She states she is not feeling any better. She complains of upper abdominal pain. Denies any fever or chills. Denies any sick contacts. She states that she has a history of anxiety for which she takes Xanax. She states that she takes the Depo- Provera shot. Denies any urinary symptoms such as hematuria, frequency or dysuria. Denies chest pain, shortness of breath, constipation or diarrhea, numbness or tingling, headache or vision changes. - Related Data Home Medications Medication Instructions Recorded Confirmed ALPRAZolam [Xanax] 0.25 mg PO Q8HR PRN 09/14/15 09/21/17 Medroxyprogesterone Acetate 150 mg IM Q90D 09/20/17 09/21/17 [Depo-Provera] Previous Rx's Medication Instructions Recorded Omeprazole 40 mg PO DAILY #14 capsule. 09/20/17 Ondansetron Odt [Zofran Odt] 4 mg PO Q8HR PRN #10 tab 09/20/17 Allergies Allergy/AdvReac Type Severity Reaction Status Date / Time Sulfa (Sulfonamide Allergy Dyspnea Verified 09/20/17 10:32 Antibiotics) Review of Systems ROS Statement: Those systems with pertinent positive or pertinent negative responses have been documented in the HPI. ROS Other: All systems not noted in ROS Statement are negative. Past Medical History Past Medical History: Asthma Additional Past Medical History / Comment(s): ovarian cysts History of Any Multi-Drug Resistant Organisms: None Reported Past Surgical History: Adenoidectomy Past Psychological History: Anxiety, Depression Smoking Status: Former smoker Past Alcohol Use History: None Reported Past Drug Use History: Marijuana General Exam - General Exam Comments Initial Comments: General: Awake and alert, well-developed; appears uncomfortable and tired. HEENT: Head atraumatic, normocephalic. Pupils are equal, round and reactive to light. Extraocular movements intact. Oropharynx appears dry. Neck: Supple. Normal ROM. Cardiovascular: Regular rate and rhythm. No murmurs, rubs or gallops. Chest symmetrical. Respiratory: Lungs clear to auscultation bilaterally. No wheezes, rales or rhonchi. Normal respiratory effort with no use of accessory muscles. Abdomen: Soft, non-tender, non-distended. No rigidity, rebound or guarding. Normal bowel sounds in all 4 quadrants. Musculoskeletal: Normal ROM, no tenderness bilateral upper and lower extremities. Skin: [place], warm and dry without rashes or lesions. Neurological: Alert and oriented x3. CN II-XII grossly intact. Speech is fluent and answers are appropriate. No focal neuro deficits. Psychiatric: Normal mood and affect. No overt signs of depression or anxiety noted. Limitations: no limitations Course Vital Signs 09/21/17 09/21/17 02:16 02:50 Temperature 98.3 F Pulse Rate 62 85 Respiratory 18 18 Rate Blood Pressure 118/73 133/78 O2 Sat by Pulse 99 96 Oximetry Medical Decision Making - Medical Decision Making This is a 27-year-old female presents to the emergency department with chief complaint of nausea, vomiting and abdominal pain. Patient has generalized upper abdominal pain. She has no rigidity, rebound or guarding present. Patient was seen earlier yesterday morning a full workup was performed. All x- rays were within normal limits except for 4+ ketones in the urine. I did perform a repeat of the CBC and CMP which did come back unremarkable. Potassium was slightly decreased at 3.1. Patient given oral potassium replacement. X-ray KUB revealed a nonacute abdomen. Patient given fluids and antiemetics while in the emergency department. She will be discharged home with recommendation to follow-up with her primary care provider. Patient is in agreement with plan and voices understanding. All questions were answered. - Radiology Data Radiology results: report reviewed X-ray KUB impression: Normal abdominal x-ray. Disposition Clinical Impression: Gastroenteritis Disposition: HOME SELF-CARE Condition: Good Instructions: Acute Nausea and Vomiting (ED) Additional Instructions: Please follow up with primary care provider within 1-2 days. Return to emergency department if symptoms should worsen or any concerns arise. Referrals: Catherine Laboy MD [Primary Care Provider] - 1-2 days Time of Disposition: 03:44
[2017-09-21 03:09] LABS: HCT 39.5 % (34.0-46.0); HGB 13.5 gm/dL (11.4-16.0); MCH 29.8 pg (25.0-35.0); MCHC 34.2 g/dL (31.0-37.0); MCV 87.2 fL (80.0-100.0); Mean Platelet Volume 6.7; Platelet Count 266 k/uL (150-450); RBC 4.53 m/uL (3.80-5.40); RDW 12.6 % (11.5-15.5); WBC 9.7 k/uL (3.8-10.6)
[2017-09-21 03:16] LABS: ALT 42 U/L (9-52); AST 20 U/L (14-36); Albumin 3.8 g/dL (3.5-5.0); Alkaline Phosphatase 37 U/L (38-126); Anion Gap 11 mmol/L; Blood Urea Nitrogen 8 mg/dL (7-17); Carbon Dioxide 23 mmol/L (22-30); Chloride 103 mmol/L (98-107); Glucose 88 mg/dL (74-99); Potassium 3.1 mmol/L (3.5-5.1); Sodium 137 mmol/L (137-145); Total Bilirubin 0.7 mg/dL (0.2-1.3); Total Protein 6.2 g/dL (6.3-8.2)
[2017-09-21 03:29] LABS: Lymphocytes # (M) 2.13 k/uL (1.0-4.8); Monocytes # (M) 0.58 k/uL (0-1.0); Neutrophils # (M) 6.89 k/uL (1.3-7.7); Neutrophils % (M) 71 %; Nucleated Red Blood Cells 0 /100 WBC (0-0); Total Cells Counted 100
[2017-09-21] MEDS ORDERED: POTASSIUM CHLORIDE ER 20 MEQ TAB.ER PO STA (03:38)
--- NOTE | 2017-09-21 03:39 | XR ---
EXAM: XR Abdomen, 1 View CLINICAL HISTORY: Upper abdominal pain. TECHNIQUE: Frontal supine view of the abdomen/pelvis. COMPARISON: No relevant prior studies available. FINDINGS: Gastrointestinal tract: Unremarkable. No dilation. Bones/joints: Unremarkable. IMPRESSION: Normal abdominal x-ray.
[2017-09-21 03:47] VITALS: BP 140/83; PULSE 81
[2017-09-21 03:59] VITALS: TEMP 98.6
== END 2017-09-21 03:58 | disposition home or self-care (01) ==
LOC: EC 02:14
DX: K52.9 Noninfective gastroenteritis and colitis, unspecified (principal); E87.6 Hypokalemia; Z87.42 Personal history of other diseases of the female genital tract; Z87.891 Personal history of nicotine dependence; Z88.2 Allergy status to sulfonamides; Z79.3 Long term (current) use of hormonal contraceptives
CPT/HCPCS: 36415; 80053; 85025; 74018; 99284; 96374; 96375 ×2; 96361; J1200; J2765; J1170

== ENCOUNTER 2017-09-22 07:05 | Observation (INO) | payer OTHER ==
[2017-09-22] MEDS ORDERED: SODIUM CHLORIDE 0.9% 2,000 ML IV STA (07:27)
[2017-09-22] MEDS ORDERED: SODIUM CHLORIDE 0.9% 1,000 ML IV STA (07:27)
[2017-09-22] MEDS ORDERED: ONDANSETRON 4 MG/2 ML VIAL IVP STA (07:27)
--- NOTE | 2017-09-22 07:32 | ED ---
Nausea/Vomiting/Diarrhea HPI - General Chief complaint: Nausea/Vomiting/Diarrhea Stated complaint: Vomiting/Abdominal Pain Time Seen by Provider: 09/22/17 07:15 Source: patient, RN notes reviewed Mode of arrival: wheelchair Limitations: no limitations - History of Present Illness Initial comments: This is a 27-year-old female who presents with complaints of the onset of nausea and vomiting over the past 4-5 days with the onset of diarrhea last night. She states she has sharp upper abdominal pain and crampy lower abdominal pain. He's had multiple episodes of vomiting she states it started to get better yesterday was only 2 episodes but it got worse during the night. He states the pain is 78/10 severity she had chills with no fevers or sweats. She denies any dysuria hematuria any blood per rectum. She denies any possibility as she uses the Depakote shot. She has felt lightheaded dizzy when she tries ambulate. She states she did have an upper scope done in the past and does have a history of a hiatal hernia. Also has a history of asthma. She does have a history of previous episodes of nausea vomiting. The patient also complained of muscle cramps in her extremities. MD complaint: nausea, vomiting, diarrhea, abdominal pain - Related Data Home Medications Medication Instructions Recorded Confirmed ALPRAZolam [Xanax] 0.25 mg PO TID 09/14/15 09/22/17 Medroxyprogesterone Acetate 150 mg IM Q90D 09/20/17 09/22/17 [Depo-Provera] Previous Rx's Medication Instructions Recorded Omeprazole 40 mg PO DAILY #14 capsule. 09/20/17 Ondansetron Odt [Zofran Odt] 4 mg PO Q8HR PRN #10 tab 09/20/17 Allergies Allergy/AdvReac Type Severity Reaction Status Date / Time Sulfa (Sulfonamide Allergy Dyspnea Verified 09/22/17 09:22 Antibiotics) Review of Systems ROS Statement: Those systems with pertinent positive or pertinent negative responses have been documented in the HPI. ROS Other: All systems not noted in ROS Statement are negative. Past Medical History Past Medical History: Asthma Additional Past Medical History / Comment(s): ovarian cysts History of Any Multi-Drug Resistant Organisms: None Reported Past Surgical History: Adenoidectomy Past Psychological History: Anxiety, Depression Smoking Status: Former smoker Past Alcohol Use History: None Reported Past Drug Use History: Marijuana General Exam - General Exam Comments Initial Comments: This is a well-developed well-nourished alert oriented 3 female she is anxious Limitations: no limitations General appearance: alert, anxious ENT exam: Present: mucous membranes dry Neck exam: Present: normal inspection. Absent: tenderness, meningismus, lymphadenopathy Respiratory exam: Present: normal lung sounds bilaterally. Absent: respiratory distress, wheezes, rales, rhonchi, stridor Cardiovascular Exam: Present: regular rate, normal rhythm, normal heart sounds. Absent: systolic murmur, diastolic murmur, rubs, gallop, clicks GI/Abdominal exam: Present: soft, tenderness, normal bowel sounds. Absent: distended, guarding, rebound, bruit, pulsatile mass, hernia Rectal exam: Present: deferred Extremities exam: Present: normal inspection, full ROM, normal capillary refill. Absent: tenderness, pedal edema, joint swelling, calf tenderness Back exam: Present: normal inspection Neurological exam: Present: alert, oriented X3, CN II-XII intact. Absent: motor sensory deficit Psychiatric exam: Present: anxious Skin exam: Present: warm, dry, intact, normal color. Absent: rash Course Vital Signs 09/22/17 09/22/17 07:08 10:16 Temperature 97 F L Pulse Rate 87 87 Respiratory 22 18 Rate Blood Pressure 132/77 125/71 O2 Sat by Pulse 99 99 Oximetry Medical Decision Making - Medical Decision Making I did reevaluate the patient on multiple occasions she still persistently having nausea and upper abdominal pain in spite of medications that were rendered. I did discuss case with patient family and with Dr. Rocha. The patient will be admitted CT has been ordered. - Lab Data Result diagrams: 09/22/17 07:39 09/22/17 07:39 Lab Results 09/22/17 09/22/17 09/22/17 Range/Units 07:39 07:39 07:39 WBC 11.7 H (3.8-10.6) k/uL RBC 5.30 (3.80-5.40) m/uL Hgb 15.2 (11.4-16.0) gm/dL Hct 46.6 H (34.0-46.0) % MCV 88.0 (80.0-100.0) fL MCH 28.6 (25.0-35.0) pg MCHC 32.6 (31.0-37.0) g/dL RDW 14.1 (11.5-15.5) % Plt Count 338 (150-450) k/uL Neutrophils % (Manual) 59 % Lymphocytes % (Manual) 36 % Monocytes % (Manual) 5 % Neutrophils # (Manual) 6.90 (1.3-7.7) k/uL Lymphocytes # (Manual) 4.21 (1.0-4.8) k/uL Monocytes # (Manual) 0.59 (0-1.0) k/uL Nucleated RBCs 0 (0-0) /100 WBC Manual Slide Review Performed RBC Morphology Normal Sodium 140 (137-145) mmol/L Potassium 3.7 (3.5-5.1) mmol/L Chloride 101 (98-107) mmol/L Carbon Dioxide 22 (22-30) mmol/L Anion Gap 17 mmol/L BUN 6 L (7-17) mg/dL Creatinine 0.74 (0.52-1.04) mg/dL Est GFR (MDRD) Af Amer >60 (>60 ml/min/1.73 sqM) Est GFR (MDRD) Non-Af >60 (>60 ml/min/1.73 sqM) Glucose 83 (74-99) mg/dL Plasma Lactic Acid [place] 1.1 (0.7-2.0) mmol/L Calcium 10.0 (8.4-10.2) mg/dL Magnesium 2.0 (1.6-2.3) mg/dL Total Bilirubin 0.8 (0.2-1.3) mg/dL AST 30 (14-36) U/L ALT 52 (9-52) U/L Alkaline Phosphatase 52 (38-126) U/L Total Protein 7.2 (6.3-8.2) g/dL Albumin 4.6 (3.5-5.0) g/dL Amylase 95 (30-110) U/L Lipase 244 (23-300) U/L Urine Color Urine Appearance (Clear) Urine pH (5.0-8.0) Ur Specific [place] (1.001-1.035) Urine Protein (Negative) Urine Glucose (UA) (Negative) Urine Ketones (Negative) Urine Blood (Negative) Urine Nitrite (Negative) Urine Bilirubin (Negative) Urine Urobilinogen (<2.0) mg/dL Ur Leukocyte Esterase (Negative) Urine HCG, Qual (Not Detectd) 09/22/17 09/22/17 Range/Units 08:50 08:50 WBC (3.8-10.6) k/uL RBC (3.80-5.40) m/uL Hgb (11.4-16.0) gm/dL Hct (34.0-46.0) % MCV (80.0-100.0) fL MCH (25.0-35.0) pg MCHC (31.0-37.0) g/dL RDW (11.5-15.5) % Plt Count (150-450) k/uL Neutrophils % (Manual) % Lymphocytes % (Manual) % Monocytes % (Manual) % Neutrophils # (Manual) (1.3-7.7) k/uL Lymphocytes # (Manual) (1.0-4.8) k/uL Monocytes # (Manual) (0-1.0) k/uL Nucleated RBCs (0-0) /100 WBC Manual Slide Review RBC Morphology Sodium (137-145) mmol/L Potassium (3.5-5.1) mmol/L Chloride (98-107) mmol/L Carbon Dioxide (22-30) mmol/L Anion Gap mmol/L BUN (7-17) mg/dL Creatinine (0.52-1.04) mg/dL Est GFR (MDRD) Af Amer (>60 ml/min/1.73 sqM) Est GFR (MDRD) Non-Af (>60 ml/min/1.73 sqM) Glucose (74-99) mg/dL Plasma Lactic Acid [place] (0.7-2.0) mmol/L Calcium (8.4-10.2) mg/dL Magnesium (1.6-2.3) mg/dL Total Bilirubin (0.2-1.3) mg/dL AST (14-36) U/L ALT (9-52) U/L Alkaline Phosphatase (38-126) U/L Total Protein (6.3-8.2) g/dL Albumin (3.5-5.0) g/dL Amylase (30-110) U/L Lipase (23-300) U/L Urine Color Light Yellow Urine Appearance Clear (Clear) Urine pH 7.0 (5.0-8.0) Ur Specific [place] 1.004 (1.001-1.035) Urine Protein Negative (Negative) Urine Glucose (UA) Negative (Negative) Urine Ketones 2+ H (Negative) Urine Blood Negative (Negative) Urine Nitrite Negative (Negative) Urine Bilirubin Negative (Negative) Urine Urobilinogen <2.0 (<2.0) mg/dL Ur Leukocyte Esterase Negative (Negative) Urine HCG, Qual Not Detected (Not Detectd) - EKG Data -: EKG Interpreted by Me EKG shows normal: sinus rhythm (Sinus rhythm rate is 68. Ago 144 QRS duration 72 QT since QTC is 392/[address].) - Radiology Data Radiology results: report reviewed (I did review the imaging and reports no acute), image reviewed Disposition Clinical Impression: Intractable vomiting with nausea, Abdominal pain Disposition: ADMITTED IP TO THIS [facility] Condition: Stable Referrals: Catherine Laboy MD [Primary Care Provider] - 1-2 days
[2017-09-22 07:59] LABS: HCT 46.6 % (34.0-46.0); HGB 15.2 gm/dL (11.4-16.0); MCH 28.6 pg (25.0-35.0); MCHC 32.6 g/dL (31.0-37.0); Mean Platelet Volume 7.6; Platelet Count 338 k/uL (150-450); RDW 14.1 % (11.5-15.5); WBC 11.7 k/uL (3.8-10.6)
[2017-09-22] MEDS ORDERED: diphenhydrAMINE 50 MG/ML 1 ML VIAL IVP STA ×2 (08:11→09:52)
[2017-09-22] MEDS ORDERED: METOCLOPRAMIDE 5 MG/ML 2 ML VIAL IVP STA ×2 (08:11→09:52)
--- NOTE | 2017-09-22 08:12 | XR ---
EXAMINATION TYPE: XR chest 2V DATE OF EXAM ORDERED: 09/22/2017 HISTORY: Nausea and vomiting. REFERENCE: Previous study dated 08/01/2009. FINDINGS: The lungs are clear. Pleural spaces are clear. Heart size is normal. IMPRESSION: NORMAL CHEST.
--- NOTE | 2017-09-22 08:13 | XR ---
EXAMINATION TYPE: XR KUB , 2 VIEWS DATE OF EXAM ORDERED: 09/22/2017 HISTORY: pain. COMPARISON: Previous study dated 09/21/2017. FINDINGS: The abdominal gas pattern is normal. There is no evidence of obstruction or free air. No u nusual calcifications are seen. IMPRESSION: NORMAL ABDOMEN.
[2017-09-22 08:20] LABS: Lymphocytes # (M) 4.21 k/uL (1.0-4.8); Monocytes # (M) 0.59 k/uL (0-1.0); Neutrophils % (M) 59 %; Nucleated Red Blood Cells 0 /100 WBC (0-0); Total Cells Counted 100
[2017-09-22 08:21] LABS: ALT 52 U/L (9-52); AST 30 U/L (14-36); Albumin 4.6 g/dL (3.5-5.0); Alkaline Phosphatase 52 U/L (38-126); Amylase 95 U/L (30-110); Anion Gap 17 mmol/L; Blood Urea Nitrogen 6 mg/dL (7-17); Carbon Dioxide 22 mmol/L (22-30); Chloride 101 mmol/L (98-107); Glucose 83 mg/dL (74-99); Lipase 244 U/L (23-300); Potassium 3.7 mmol/L (3.5-5.1); Sodium 140 mmol/L (137-145); Total Bilirubin 0.8 mg/dL (0.2-1.3); Total Protein 7.2 g/dL (6.3-8.2)
[2017-09-22 09:02] LABS: Appearance,Urine Clear (Clear); Bilirubin,Urine Negative (Negative); Blood,Urine Negative (Negative); Color,Urine Light Yellow; Glucose,Urine (UA) Negative (Negative); Ketones,Urine 2+ (Negative); Leukocyte Esterase,Urine Negative (Negative); Nitrite,Urine Negative (Negative); Protein,Urine Negative (Negative); Specific Gravity,Urine 1.004 (1.001-1.035); Urobilinogen,Urine <2.0 mg/dL (<2.0)
[2017-09-22] MEDS ORDERED: DICYCLOMINE 10 MG/ML 2 ML AMP IM STA (09:52)
[2017-09-22] MEDS ORDERED: KETOROLAC 30 MG/ML 1 ML VIAL IVP STA (09:52)
[2017-09-22] MEDS ORDERED: RX INFO: IV CONTRAST WAS GIVEN 1 EACH MISC MISCELLANE PRN (11:42)
[2017-09-22] MEDS ORDERED: IOHEXOL 350 MG/ML 25 ML BOTTLE (ORAL USE) PO PRN (11:42)
[2017-09-22] MEDS ORDERED: NALOXONE 0.4 MG/ML 1 ML VIAL IV PRN (12:20)
[2017-09-22] MEDS ORDERED: SODIUM CHLORIDE 0.9% 1,000 ML IV SCH (12:30)
--- NOTE | 2017-09-22 13:16 | P.HPIM ---
History of Present Illness H&P Date: 09/22/17 Chief Complaint: Vomiting This is a 27-year-old female patient of Dr. Laboy with history of mild intermittent asthma, ovarian cyst, comes with vomiting and possible cyclic vomiting. Patient gives history of sudden onset Saturday at 2 AM of abdominal pain which starts as a flash of pain and then she has a wave of nausea and vomiting and retching continued. She has been to the emergency center at [facility] 3 times since Saturday. She does have chills and feels weak. It has caused increased anxiety for her. She has had one episode of diarrhea this morning. She does have episodes where she feels better which last only for a couple hours and then she starts vomiting again. She denies any food triggers. No sick contacts, no travel. She states she has had this at least 10 times in the past 2 years and has been in a hospital for the same. She has undergone EGD that found a hiatal hernia with Dr. Vinson. Zofran does not usually help her and only Reglan and Benadryl seemed to help. There was concern that this could be due to ovarian cyst and she was started on Depo-Provera last year and she has had no episodes for 1 year. She denies any black or bloody stools. She has pain in a band across her upper abdomen most severe at the epigastric area with no radiation to the back. She came into [facility] emergency center and underwent a KUB which was normal, chest x-ray normal. She is scheduled for CAT scan of the abdomen. Patient is being placed as an observation status. Reglan will be continued as well as IV fluids for hydration. She does state that she was feeling improvement after IV fluid in the emergency center. Review of Systems All systems: negative Constitutional: Reports chills, Reports poor appetite, Denies fever Eyes: denies blurred vision, denies pain Ears, nose, mouth and throat: Denies headache, Denies sore throat Cardiovascular: Denies chest pain, Denies decreased exercise tolerance, Denies dyspnea on exertion, Denies leg edema, Denies lightheadedness, Denies shortness of breath, Denies syncope Respiratory: Denies cough, Denies cough with sputum, Denies dyspnea, Denies excessive sputum, Denies hemoptysis, Denies home oxygen, Denies wheezing Gastrointestinal: Reports abdominal pain, Reports loss of appetite, Reports nausea, Reports vomiting, Denies diarrhea, Denies melena Genitourinary: Denies dysuria, Denies hematuria Musculoskeletal: Denies myalgias Integumentary: Denies pruritus, Denies rash Neurological: Denies numbness, Denies weakness Psychiatric: Denies anxiety, Denies depression Endocrine: Denies fatigue, Denies weight change Past Medical History Past Medical History: Asthma Additional Past Medical History / Comment(s): Mild intermittent asthma, ovarian cysts History of Any Multi-Drug Resistant Organisms: None Reported Past Surgical History: Adenoidectomy Past Psychological History: Anxiety, Depression Smoking Status: Former smoker Past Alcohol Use History: None Reported Additional Past Alcohol Use History / Comment(s): A shunt has no history of tobacco use. She smokes marijuana on a daily basis. He she works as a outside property agent. There is a dog in the home. She has a 5-year-old daughter with no major medical problems. Past Drug Use History: Marijuana - Past Family History Father Additional Family Medical History / Comment(s): Father committed suicide at age 25. Mother Additional Family Medical History / Comment(s): Mother is alive at age 47 and did have similar symptoms to her when she was in her 20s. She does have history of anxiety and depression and attempted suicide in the past. Brother(s) Additional Family Medical History / Comment(s): Patient has 1 brother with no major medical problems. Patient does not have any sisters. Medications and Allergies Home Medications Medication Instructions Recorded Confirmed Type ALPRAZolam [Xanax] 0.25 mg PO TID 09/14/15 09/22/17 History Medroxyprogesterone Acetate 150 mg IM Q90D 09/20/17 09/22/17 History [Depo-Provera] Omeprazole 40 mg PO DAILY #14 capsule. 09/20/17 09/22/17 Rx Ondansetron Odt [Zofran Odt] 4 mg PO Q8HR PRN #10 tab 09/20/17 09/22/17 Rx Allergies Allergy/AdvReac Type Severity Reaction Status Date / Time Sulfa (Sulfonamide Allergy Dyspnea Verified 09/22/17 09:22 Antibiotics) Physical Exam Vitals: Vital Signs Temp Pulse Resp BP Pulse Ox 09/22/17 10:16 87 18 125/71 99 09/22/17 07:08 97 F L 87 22 132/77 99 Intake and Output 09/21/17 09/22/17 09/22/17 22:59 06:59 14:59 Other: Weight 68.039 kg Patient Weight 09/23/17 06:59 Weight 68.039 kg Gen: This is a 27-year-old female patient. She is on the ER stretcher and appears to be uncomfortable. HEENT: Head is atraumatic, normocephalic. Pupils equal, round. Sclerae is anicteric. conjunctiva pink. Mucous membranes of the mouth are somewhat dry. NECK: Supple. No JVD. No lymphadenopathy. No thyromegaly. LUNGS: Clear to auscultation. No wheezes or rhonchi. No intercostal retractions. HEART: Regular rate and rhythm. No murmur. ABDOMEN: Soft. Bowel sounds are present. No masses. tenderness across the upper abdomen most significant at the epigastric area. EXTREMITIES: No pedal edema. No calf tenderness. Dorsalis pedis +2 bilaterally. NEUROLOGICAL: Patient is awake, alert and oriented x3. Cranial nerves 2 through 12 are grossly intact. Results CBC & Chem 7: 09/22/17 07:39 09/22/17 07:39 Labs: Abnormal Lab Results - Last 24 Hours (Table) 09/22/17 09/22/17 09/22/17 Range/Units 07:39 07:39 08:50 WBC 11.7 H (3.8-10.6) k/uL Hct 46.6 H (34.0-46.0) % BUN 6 L (7-17) mg/dL Urine Ketones 2+ H (Negative) Thrombosis Risk Factor Assmnt - DVT/VTE Prophylaxis DVT/VTE Prophylaxis: Pharmacologic Prophylaxis ordered Assessment and Plan Plan: 1. Intractable nausea and vomiting with known history of hiatal hernia and possible cyclic vomiting. Patient will be started on Reglan every 6 hours IV, Pepcid 20 mg IV twice daily. CAT scan of the abdomen and pelvis ordered. IV fluids of D5 half-normal saline with KCl at 125 mL per hour. Nothing by mouth status. Recheck blood work in the morning. 2. Mild leukocytosis secondary to nausea and vomiting. 3. Mild intermittent asthma, stable without exacerbation. 4. History of ovarian cyst on Depo-Provera. 5. Generalized anxiety disorder. Continue Xanax 0.25 mg 3 times daily as needed. 6. DVT prophylaxis. Lovenox. 7. GI prophylaxis. Pepcid IV twice daily. Patient placed as an observation type. Discharge plan:discharge home tomorrow Impression and plan of care have been directed as dictated by the signing physician. Sunitha Oliveros nurse practitioner acting as scribe for signing physician.
[2017-09-22] MEDS: D5-0.45% NACL WITH KCL 20MEQ/L 1,000 ML IV SCH ×2 (13:40→22:10)
[2017-09-22 14:03] VITALS: BMI 24.2
--- NOTE | 2017-09-22 14:18 | CT ---
EXAMINATION TYPE: CT abdomen pelvis w con DATE OF EXAM: 09/22/2017 HISTORY: Abdominal pain with vomiting CT DLP: 440.3mGycm Automated Exposure Control for Dose Reduction was Utilized. CONTRAST: CT scan of the abdomen and pelvis is performed with IV Contrast, patient injected with 100 mL of Omni paque 300. COMPARISON: None. FINDINGS: LUNG BASES: No significant abnormality is appreciated. LIVER/GB: Liver enhances homogeneously without focal mass or ductal dilatation. No radiopaque gallsto arhcana. PANCREAS: No significant abnormality is seen. No ductal dilatation. SPLEEN: No splenomegaly. ADRENALS: No significant abnormality is seen. KIDNEYS: The kidneys enhance symmetrically. Punctate 2 mm calculus is seen at the right ureterovesicu lar junction without resultant hydroureteronephrosis. This is noted on series 3 image 78. BOWEL: No dilated bowel. Appendix is air-filled and within normal limits. No evidence of bowel obstr uction. UTERUS/ADNEXA: Follicular changes are seen of the ovaries. LYMPH NODES: No greater than 1cm abdominal or pelvic lymph nodes are appreciated. OSSEOUS STRUCTURES: No significant abnormality is seen. IMPRESSION: 1. Punctate 2 mm right sided calculus at the ureterovesicular junction without resultant hydrouretero nephrosis. 2. No evidence of appendicitis. 3. Follicular changes of the ovaries.
[2017-09-22] MEDS: FAMOTIDINE 20 MG/2 ML VIAL IV SCH ×2 (14:44→21:17)
[2017-09-22] MEDS: METOCLOPRAMIDE 5 MG/ML 2 ML VIAL IVP PRN ×2 (15:59→22:26)
[2017-09-22] MEDS: ALPRAZolam 0.25 MG TAB PO PRN (18:11)
[2017-09-22] MEDS: diphenhydrAMINE 50 MG/ML 1 ML VIAL IVP PRN (22:29)
[2017-09-23] MEDS: ALPRAZolam 0.25 MG TAB PO PRN ×3 (01:28→20:30)
[2017-09-23] MEDS: diphenhydrAMINE 50 MG/ML 1 ML VIAL IVP PRN (04:57)
[2017-09-23] MEDS: METOCLOPRAMIDE 5 MG/ML 2 ML VIAL IVP PRN ×3 (05:01→19:08)
[2017-09-23 06:35] LABS: HCT 41.6 % (34.0-46.0); HGB 13.7 gm/dL (11.4-16.0); MCHC 32.9 g/dL (31.0-37.0); MCV 88.1 fL (80.0-100.0); Mean Platelet Volume 7.4; Platelet Count 290 k/uL (150-450); RBC 4.73 m/uL (3.80-5.40); RDW 14.3 % (11.5-15.5); WBC 8.4 k/uL (3.8-10.6)
[2017-09-23 06:44] LABS: Anion Gap 11 mmol/L; Blood Urea Nitrogen 3 mg/dL (7-17); Calcium 9.1 mg/dL (8.4-10.2); Carbon Dioxide 23 mmol/L (22-30); Chloride 104 mmol/L (98-107); Glucose 107 mg/dL (74-99); Potassium 3.6 mmol/L (3.5-5.1); Sodium 138 mmol/L (137-145)
[2017-09-23] MEDS: FAMOTIDINE 20 MG/2 ML VIAL IV SCH ×2 (08:41→20:30)
[2017-09-23] MEDS: ENOXAPARIN 40 MG/0.4 ML SYRINGE SQ SCH (08:41)
--- NOTE | 2017-09-23 14:11 | P.PN ---
Subjective Progress Note Date: 09/23/17 This is a 27-year-old female patient of Dr. Laboy with history of mild intermittent asthma, ovarian cyst, comes with vomiting and possible cyclic vomiting. Patient gives history of sudden onset Saturday at 2 AM of abdominal pain which starts as a flash of pain and then she has a wave of nausea and vomiting and retching continued. She has been to the emergency center at [facility] 3 times since Saturday. She does have chills and feels weak. It has caused increased anxiety for her. She has had one episode of diarrhea this morning. She does have episodes where she feels better which last only for a couple hours and then she starts vomiting again. She denies any food triggers. No sick contacts, no travel. She states she has had this at least 10 times in the past 2 years and has been in a hospital for the same. She has undergone EGD that found a hiatal hernia with Dr. Visnon. Zofran does not usually help her and only Reglan and Benadryl seemed to help. There was concern that this could be due to ovarian cyst and she was started on Depo-Provera last year and she has had no episodes for 1 year. She denies any black or bloody stools. She has pain in a band across her upper abdomen most severe at the epigastric area with no radiation to the back. She came into [facility] emergency center and underwent a KUB which was normal, chest x-ray normal. She is scheduled for CAT scan of the abdomen. Patient is being placed as an observation status. Reglan will be continued as well as IV fluids for hydration. She does state that she was feeling improvement after IV fluid in the emergency center. 09/23: Patient is currently on a clear liquid diet and is eating this. She does not have much appetite but is forcing herself to eat. She did have loose stools this morning but none by the time of evaluation which were watery. CAT scan of the abdomen and pelvis with contrast revealed 2 mm right-sided calculus at the ureterovesicular junction without hydronephrosis. No evidence of appendicitis. Follicular changes of the ovaries. Calculus is not at the area of pain and discomfort for patient. Plan to advance her diet. She denies any history of kidney stones or kidney stones in the family. Patient states she drinks a lot of espresso and not water. Patient to increase water intake. She has been afebrile. After lunch, patient had emesis and abdominal pain for which morphine was added. Objective - Vital Signs Vital signs: Vital Signs Temp 97.7 F 09/23/17 08:07 Pulse 58 L 09/23/17 08:07 Resp 20 09/23/17 08:07 BP 125/83 09/23/17 08:07 Pulse Ox 99 09/23/17 08:07 Intake & Output 09/22/17 09/23/17 09/23/17 18:59 06:59 18:59 Intake Total 2870 Balance 2870 Weight 68.039 kg Intake: Intake, IV Titration 2870 Amount D5-0.45% NaCl with KCl 2870 20Meq/l 1,000 ml @ 125 mls/hr IV .Q8H [facility] Rx#: [id number] Other: Voiding Method Toilet Toilet # Voids 1 5 1 # Bowel Movements 5 - Exam Gen: This is a 27-year-old female patient. She is sitting up in bed and appears to be uncomfortable. HEENT: Head is atraumatic, normocephalic. Pupils equal, round. Sclerae is anicteric. conjunctiva pink. Mucous membranes of the mouth are somewhat dry. NECK: Supple. No JVD. No lymphadenopathy. No thyromegaly. LUNGS: Clear to auscultation. No wheezes or rhonchi. No intercostal retractions. HEART: Regular rate and rhythm. No murmur. ABDOMEN: Soft. Bowel sounds are present. No masses. tenderness across the upper abdomen most significant at the epigastric area. EXTREMITIES: No pedal edema. No calf tenderness. Dorsalis pedis +2 bilaterally. NEUROLOGICAL: Patient is awake, alert and oriented x3. Cranial nerves 2 through 12 are grossly intact. - Labs CBC & Chem 7: 09/23/17 05:56 09/23/17 05:56 Labs: Abnormal Lab Results - Last 24 Hours (Table) 09/23/17 Range/Units 05:56 BUN 3 L (7-17) mg/dL Glucose 107 H (74-99) mg/dL Microbiology - Last 24 Hours (Table) 09/22/17 07:39 Blood Culture - Preliminary Blood No Growth after 24 hours Assessment and Plan Plan: 1. Intractable nausea and vomiting with known history of hiatal hernia and possible cyclic vomiting. Patient will be started on Reglan every 6 hours IV as needed, Pepcid 20 mg IV twice daily. CAT scan of the abdomen and pelvis as above. IV fluids of D5 half-normal saline with KCl at 125 mL per hour. Clear liquid diet to be advanced to full liquid. Patient may need a PTH checked. We' ll check with Dr. Laboy if this is been done in the office. Morphine IV and if her pain. 2. Mild leukocytosis secondary to nausea and vomiting. 3. Mild intermittent asthma, stable without exacerbation. 4. History of ovarian cyst on Depo-Provera. 5. Generalized anxiety disorder. Continue Xanax 0.25 mg 3 times daily as needed. 6. DVT prophylaxis. Lovenox. 7. GI prophylaxis. Pepcid IV twice daily. Discharge plan:discharge home tomorrow Impression and plan of care have been directed as dictated by the signing physician. Sunitha Oliveros nurse practitioner acting as scribe for signing physician.
[2017-09-23] MEDS: MORPHINE SULFATE 2 MG/ML SYRINGE IVP PRN ×2 (14:26→20:44)
[2017-09-23] MEDS: D5-0.45% NACL WITH KCL 20MEQ/L 1,000 ML IV SCH (16:52)
[2017-09-24] MEDS: MORPHINE SULFATE 2 MG/ML SYRINGE IVP PRN (01:08)
[2017-09-24] MEDS: METOCLOPRAMIDE 5 MG/ML 2 ML VIAL IVP PRN (01:09)
[2017-09-24] MEDS: D5-0.45% NACL WITH KCL 20MEQ/L 1,000 ML IV SCH ×3 (01:17→10:48)
[2017-09-24] MEDS: FAMOTIDINE 20 MG/2 ML VIAL IV SCH (10:47)
[2017-09-24] MEDS: ENOXAPARIN 40 MG/0.4 ML SYRINGE SQ SCH (10:47)
[2017-09-24 12:52] VITALS: BP 137/85; PULSE 84; RESP 18; TEMP 98.1
--- NOTE | 2017-09-24 13:56 | P.DS ---
Providers Date of admission: 09/22/17 12:28 Expected date of discharge: 09/24/17 Attending physician: Jennifer Rocha Primary care physician: Catherine Laboy [facility] Course: This is a 27-year-old female patient of Dr. Laboy with history of mild intermittent asthma, ovarian cyst, comes with vomiting and possible cyclic vomiting. Patient gives history of sudden onset Saturday at 2 AM of abdominal pain which starts as a flash of pain and then she has a wave of nausea and vomiting and retching continued. She has been to the emergency center at [facility] 3 times since Saturday. She does have chills and feels weak. It has caused increased anxiety for her. She has had one episode of diarrhea this morning. She does have episodes where she feels better which last only for a couple hours and then she starts vomiting again. She denies any food triggers. No sick contacts, no travel. She states she has had this at least 10 times in the past 2 years and has been in a hospital for the same. She has undergone EGD that found a hiatal hernia with Dr. Vinson. Zofran does not usually help her and only Reglan and Benadryl seemed to help. There was concern that this could be due to ovarian cyst and she was started on Depo-Provera last year and she has had no episodes for 1 year. She denies any black or bloody stools. She has pain in a band across her upper abdomen most severe at the epigastric area with no radiation to the back. She came into [facility] emergency center and underwent a KUB which was normal, chest x-ray normal. She is scheduled for CAT scan of the abdomen. Patient is being placed as an observation status. Reglan will be continued as well as IV fluids for hydration. She does state that she was feeling improvement after IV fluid in the emergency center. 09/23: Patient is currently on a clear liquid diet and is eating this. She does not have much appetite but is forcing herself to eat. She did have loose stools this morning but none by the time of evaluation which were watery. CAT scan of the abdomen and pelvis with contrast revealed 2 mm right-sided calculus at the ureterovesicular junction without hydronephrosis. No evidence of appendicitis. Follicular changes of the ovaries. Calculus is not at the area of pain and discomfort for patient. Plan to advance her diet. She denies any history of kidney stones or kidney stones in the family. Patient states she drinks a lot of espresso and not water. Patient to increase water intake. She has been afebrile. After lunch, patient had emesis and abdominal pain for which morphine was added. 09/24: Patient's family that her pain moved yesterday. Nurse collected but appears to be very tiny kidney stones. Patient states her pain is much improved today and nausea and vomiting are improved. Patient's diet will be soft for lunch and if she tolerates this without nausea or vomiting, patient will be discharged home. She has been given a prescription for Zofran. Phosphorus level came back at 3.0 and PTH will be checked. Discharge diagnoses: 1. Intractable nausea and vomiting with known history of hiatal hernia and possible cyclic vomiting but most likely this episode was really related to kidney stones. 2. Mild leukocytosis secondary to nausea and vomiting. 3. Mild intermittent asthma, stable without exacerbation. 4. History of ovarian cyst on Depo-Provera. 5. Generalized anxiety disorder. Discharge plan:discharge home Impression and plan of care have been directed as dictated by the signing physician. Sunitha Oliveros nurse practitioner acting as scribe for signing physician. Patient Condition at Discharge: Good Plan - Discharge Summary Discharge Rx Participant: No New Discharge Prescriptions: Continue ALPRAZolam [Xanax] 0.25 mg PO TID Medroxyprogesterone Acetate [Depo-Provera] 150 mg IM Q90D Omeprazole 40 mg PO DAILY #14 capsule. Ondansetron Odt [Zofran ODT] 4 mg PO Q8HR PRN #20 tab PRN Reason: Nausea Discharge Medication List ALPRAZolam [Xanax] 0.25 mg PO TID 09/14/15 [History] Medroxyprogesterone Acetate [Depo-Provera] 150 mg IM Q90D 09/20/17 [History] Omeprazole 40 mg PO DAILY #14 capsule. 09/20/17 [Rx] Ondansetron Odt [Zofran ODT] 4 mg PO Q8HR PRN #20 tab 09/24/17 [Rx] Follow up Appointment(s)/Referral(s): Catherine Laboy MD [Primary Care Provider] - 10/02/17 8:45 am Patient Instructions/Handouts: Acute Nausea and Vomiting (DC), Acute Abdominal Pain (DC) Activity/Diet/Wound Care/Special Instructions: Diet as tolerated. Drink plenty of fluids. Call Dr Laboy if you have any questions or concerns. Discharge Disposition: HOME SELF-CARE
== END 2017-09-24 13:55 | disposition home or self-care (01) ==
LOC: EC 07:05 → 6PED 12:28
PROVIDERS: ADMIT Internal Medicine; ATTEND Internal Medicine
DX: R11.2 Nausea with vomiting, unspecified (principal); K44.9 Diaphragmatic hernia without obstruction or gangrene; N20.0 Calculus of kidney; R10.13 Epigastric pain; R10.10 Upper abdominal pain, unspecified; R10.30 Lower abdominal pain, unspecified; R19.7 Diarrhea, unspecified; R68.83 Chills (without fever); R53.1 Weakness; R42 Dizziness and giddiness; R25.2 Cramp and spasm; D72.829 Elevated white blood cell count, unspecified; J45.20 Mild intermittent asthma, uncomplicated; N83.209 Unspecified ovarian cyst, unspecified side; F41.1 Generalized anxiety disorder; F32.9 Major depressive disorder, single episode, unspecified; Z87.891 Personal history of nicotine dependence; Z79.899 Other long term (current) drug therapy; Z79.3 Long term (current) use of hormonal contraceptives; Z88.2 Allergy status to sulfonamides
CPT/HCPCS: 99285; 96374 ×2; 96361 ×6; 96375 ×6; 96376 ×6; 96372 ×4; 36415; 93005; 80053; 80048; 82150; 83605; 83690; 83735; 84100; 85025; 85027; 81003; 81025; 87040; 83970; 71046; 74018; 74177; G0378 ×3; J1200 ×2; J0500; J2765 ×3; J2405; J1650 ×2; J1885; J2270 ×2; Q9967

== ENCOUNTER 2017-09-29 04:38 | Emergency (ER) | payer OTHER ==
[2017-09-29] MEDS ORDERED: SODIUM CHLORIDE 0.9% 1,000 ML IV STA (05:14)
[2017-09-29] MEDS ORDERED: diphenhydrAMINE 50 MG/ML 1 ML VIAL IVP STA (05:14)
[2017-09-29] MEDS ORDERED: METOCLOPRAMIDE 5 MG/ML 2 ML VIAL IVP STA (05:14)
--- NOTE | 2017-09-29 05:16 | ED ---
General Adult HPI - General Chief complaint: Abdominal Pain Stated complaint: Vomiting Time Seen by Provider: 09/29/17 04:45 Source: patient, RN notes reviewed Mode of arrival: ambulatory Limitations: no limitations - History of Present Illness Initial comments: This is a 27-year-old female presents emergency department stating that she started vomiting and having diarrhea at midnight. Patient states she has abdominal pain now but she believes is because she is been vomiting so much. Patient states she's had this happen many times in the past. Patient denies any fever chills. Patient denies any blood in the urine. Patient denies any back pain. Patient denies any difficulty breathing or shortness of breath. - Related Data Home Medications Medication Instructions Recorded Confirmed ALPRAZolam [Xanax] 0.25 mg PO TID 09/14/15 09/22/17 Medroxyprogesterone Acetate 150 mg IM Q90D 09/20/17 09/22/17 [Depo-Provera] Previous Rx's Medication Instructions Recorded Omeprazole 40 mg PO DAILY #14 capsule. 09/20/17 Ondansetron Odt [Zofran ODT] 4 mg PO Q8HR PRN #20 tab 09/24/17 Allergies Allergy/AdvReac Type Severity Reaction Status Date / Time Sulfa (Sulfonamide Allergy Dyspnea Verified 09/22/17 13:49 Antibiotics) Review of Systems ROS Statement: Those systems with pertinent positive or pertinent negative responses have been documented in the HPI. ROS Other: All systems not noted in ROS Statement are negative. Past Medical History Past Medical History: Asthma Additional Past Medical History / Comment(s): Mild intermittent asthma, ovarian cysts History of Any Multi-Drug Resistant Organisms: None Reported Past Surgical History: Adenoidectomy Past Anesthesia/Blood Transfusion Reactions: No Reported Reaction Past Psychological History: Anxiety, Depression Smoking Status: Former smoker Past Alcohol Use History: None Reported Past Drug Use History: Marijuana - Past Family History Father Additional Family Medical History / Comment(s): Father committed suicide at age 25. Mother Additional Family Medical History / Comment(s): Mother is alive at age 47 and did have similar symptoms to her when she was in her 20s. She does have history of anxiety and depression and attempted suicide in the past. Brother(s) Additional Family Medical History / Comment(s): Patient has 1 brother with no major medical problems. Patient does not have any sisters. General Exam - General Exam Comments Initial Comments: GENERAL: Patient is well-developed and well-nourished. Patient is nontoxic and well- hydrated and is in mild distress. ENT: Neck is soft and supple. No significant lymphadenopathy is noted. Oropharynx is clear. Moist mucous membranes. Neck has full range of motion without eliciting any pain. EYES: The sclera were anicteric and conjunctiva were pink and moist. Extraocular movements were intact and pupils were equal round and reactive to light. Eyelids were unremarkable. PULMONARY: Unlabored respirations. Good breath sounds bilaterally. No audible rales rhonchi or wheezing was noted. CARDIOVASCULAR: There is a regular rate and rhythm without any murmurs gallops or rubs. ABDOMEN: Soft and nontender with normal bowel sounds. No palpable organomegaly was noted. There is no palpable pulsatile mass. SKIN: Skin is clear with no lesions or rashes and otherwise unremarkable. NEUROLOGIC: Patient is alert and oriented x3. Cranial nerves II through XII are grossly intact. Motor and sensory are also intact. Normal speech, volume and content. Symmetrical smile. MUSCULOSKELETAL: Normal extremities with adequate strength and full range of motion. LYMPHATICS: No significant lymphadenopathy is noted PSYCHIATRIC: Normal psychiatric evaluation. Normal interpersonal interactions appears functionally intact in deals appropriately with others. No signs of depression. No signs of anxiety. Limitations: no limitations Course Vital Signs 09/29/17 04:42 Temperature 98.6 F Pulse Rate 96 Respiratory 22 Rate Blood Pressure 140/87 O2 Sat by Pulse 98 Oximetry Medical Decision Making - Lab Data Result diagrams: 09/29/17 05:21 09/29/17 05:21 Lab Results 09/29/17 09/29/17 Range/Units 05:21 05:21 WBC 8.9 (3.8-10.6) k/uL RBC 4.58 (3.80-5.40) m/uL Hgb 13.4 (11.4-16.0) gm/dL Hct 40.3 (34.0-46.0) % MCV 88.1 (80.0-100.0) fL MCH 29.3 (25.0-35.0) pg MCHC 33.2 (31.0-37.0) g/dL RDW 14.4 (11.5-15.5) % Plt Count 265 (150-450) k/uL Neutrophils % (Manual) 85 % Lymphocytes % (Manual) 10 % Monocytes % (Manual) 1 % Eosinophils % (Manual) 4 % Neutrophils # (Manual) 7.57 (1.3-7.7) k/uL Lymphocytes # (Manual) 0.89 L (1.0-4.8) k/uL Monocytes # (Manual) 0.09 (0-1.0) k/uL Eosinophils # (Manual) 0.36 (0-0.7) k/uL Nucleated RBCs 0 (0-0) /100 WBC Manual Slide Review Performed Reactive Lymphocytes Present Sodium 140 (137-145) mmol/L Potassium 4.3 (3.5-5.1) mmol/L Chloride 102 (98-107) mmol/L Carbon Dioxide 28 (22-30) mmol/L Anion Gap 10 mmol/L BUN 18 H (7-17) mg/dL Creatinine 0.70 (0.52-1.04) mg/dL Est GFR (MDRD) Af Amer >60 (>60 ml/min/1.73 sqM) Est GFR (MDRD) Non-Af >60 (>60 ml/min/1.73 sqM) Glucose 120 H (74-99) mg/dL Calcium 9.4 (8.4-10.2) mg/dL Total Bilirubin 0.4 (0.2-1.3) mg/dL AST 17 (14-36) U/L ALT 40 (9-52) U/L Alkaline Phosphatase 37 L (38-126) U/L Total Protein 6.6 (6.3-8.2) g/dL Albumin 4.3 (3.5-5.0) g/dL Amylase 78 (30-110) U/L Lipase 168 (23-300) U/L Disposition Clinical Impression: Acute vomiting Disposition: HOME SELF-CARE Condition: Good Instructions: Acute Nausea and Vomiting (ED) Referrals: Catherine Laboy MD [Primary Care Provider] - 1-2 days Time of Disposition: 06:03
[2017-09-29 05:29] LABS: HCT 40.3 % (34.0-46.0); HGB 13.4 gm/dL (11.4-16.0); MCH 29.3 pg (25.0-35.0); MCHC 33.2 g/dL (31.0-37.0); MCV 88.1 fL (80.0-100.0); Mean Platelet Volume 7.3; Platelet Count 265 k/uL (150-450); RBC 4.58 m/uL (3.80-5.40); RDW 14.4 % (11.5-15.5); WBC 8.9 k/uL (3.8-10.6)
[2017-09-29 05:38] LABS: ALT 40 U/L (9-52); AST 17 U/L (14-36); Albumin 4.3 g/dL (3.5-5.0); Alkaline Phosphatase 37 U/L (38-126); Amylase 78 U/L (30-110); Anion Gap 10 mmol/L; Blood Urea Nitrogen 18 mg/dL (7-17); Calcium 9.4 mg/dL (8.4-10.2); Carbon Dioxide 28 mmol/L (22-30); Chloride 102 mmol/L (98-107); Glucose 120 mg/dL (74-99); Lipase 168 U/L (23-300); Potassium 4.3 mmol/L (3.5-5.1); Sodium 140 mmol/L (137-145); Total Bilirubin 0.4 mg/dL (0.2-1.3); Total Protein 6.6 g/dL (6.3-8.2)
[2017-09-29 05:56] LABS: Eosinophils # (M) 0.36 k/uL (0-0.7); Lymphocytes # (M) 0.89 k/uL (1.0-4.8); Monocytes # (M) 0.09 k/uL (0-1.0); Neutrophils # (M) 7.57 k/uL (1.3-7.7); Neutrophils % (M) 85 %; Nucleated Red Blood Cells 0 /100 WBC (0-0); Total Cells Counted 100
[2017-09-29 05:57] LABS: Reactive Lymphocytes Present
[2017-09-29 06:27] VITALS: BP 119/67; PULSE 110; RESP 16; TEMP 98.3
== END 2017-09-29 06:27 | disposition home or self-care (01) ==
LOC: EC 04:38
DX: R11.10 Vomiting, unspecified (principal); R19.7 Diarrhea, unspecified; R10.9 Unspecified abdominal pain; F32.9 Major depressive disorder, single episode, unspecified; F41.9 Anxiety disorder, unspecified; Z87.891 Personal history of nicotine dependence; Z79.899 Other long term (current) drug therapy; Z88.2 Allergy status to sulfonamides
CPT/HCPCS: 36415; 80053; 82150; 83690; 85025; 99284; 96374; 96375; 96361; J1200; J2765

== ENCOUNTER 2017-10-15 07:02 | Emergency (ER) | payer OTHER ==
[2017-10-15] MEDS ORDERED: diphenhydrAMINE 50 MG/ML 1 ML VIAL IM STA (08:11)
[2017-10-15] MEDS ORDERED: METOCLOPRAMIDE 5 MG/ML 2 ML VIAL IM ONE (08:12)
--- NOTE | 2017-10-15 08:14 | ED ---
General Adult HPI - General Chief complaint: Nausea/Vomiting/Diarrhea Stated complaint: NVD Time Seen by Provider: 10/15/17 08:00 Source: patient, RN notes reviewed Mode of arrival: wheelchair Limitations: no limitations - History of Present Illness Initial comments: Patient is a pleasant 27-year-old female presenting to the emergency department with anxiety and vomiting. Onset of symptoms was around 4 AM. Patient has had similar symptoms multiple times previously. Patient states she usually does get these symptoms every couple of months. This is been occurring for multiple years. Patient has seen her doctor for this who told her it was likely related to anxiety. Patient has had a little bit of diarrhea. No abdominal pain. Patient states she hyperventilates and her hands lock up on her. Patient does also complain of paresthesias of both of her arms. Patient states she just restarted her Lexapro around 1 week ago. - Related Data Home Medications Medication Instructions Recorded Confirmed ALPRAZolam [Xanax] 0.25 mg PO TID PRN 09/14/15 10/15/17 Medroxyprogesterone Acetate 150 mg IM Q90D 09/20/17 10/15/17 [Depo-Provera] Cyanocobalamin [Vitamin B-12] 500 mcg PO DAILY 10/15/17 10/15/17 Doxepin [SINEquan] 10 - 20 mg PO HS PRN 10/15/17 10/15/17 Escitalopram [Lexapro] 20 mg PO DAILY 10/15/17 10/15/17 Previous Rx's Medication Instructions Recorded Ondansetron Odt [Zofran ODT] 4 mg PO Q8HR PRN #20 tab 09/24/17 Allergies Allergy/AdvReac Type Severity Reaction Status Date / Time Sulfa (Sulfonamide Allergy Dyspnea Verified 10/15/17 09:15 Antibiotics) Review of Systems ROS Statement: Those systems with pertinent positive or pertinent negative responses have been documented in the HPI. ROS Other: All systems not noted in ROS Statement are negative. Constitutional: Denies: fever Eyes: Denies: eye pain ENT: Denies: ear pain Respiratory: Denies: cough Cardiovascular: Denies: chest pain Endocrine: Denies: fatigue Gastrointestinal: Reports: nausea, vomiting, diarrhea Genitourinary: Denies: dysuria Musculoskeletal: Denies: back pain Skin: Denies: rash Neurological: Denies: weakness Psychiatric: Reports: anxiety Past Medical History Past Medical History: Asthma Additional Past Medical History / Comment(s): Mild intermittent asthma, ovarian cysts History of Any Multi-Drug Resistant Organisms: None Reported Past Surgical History: Adenoidectomy Past Anesthesia/Blood Transfusion Reactions: No Reported Reaction Past Psychological History: Anxiety, Depression Smoking Status: Former smoker Past Alcohol Use History: None Reported Past Drug Use History: Marijuana - Past Family History Father Additional Family Medical History / Comment(s): Father committed suicide at age 25. Mother Additional Family Medical History / Comment(s): Mother is alive at age 47 and did have similar symptoms to her when she was in her 20s. She does have history of anxiety and depression and attempted suicide in the past. Brother(s) Additional Family Medical History / Comment(s): Patient has 1 brother with no major medical problems. Patient does not have any sisters. General Exam Limitations: no limitations General appearance: alert, anxious Head exam: Present: atraumatic Eye exam: Present: normal appearance, PERRL ENT exam: Present: normal oropharynx Neck exam: Present: normal inspection Respiratory exam: Present: normal lung sounds bilaterally Cardiovascular Exam: Present: regular rate, normal rhythm GI/Abdominal exam: Present: soft. Absent: distended, tenderness Extremities exam: Present: normal inspection. Absent: pedal edema, calf tenderness Neurological exam: Present: alert Psychiatric exam: Present: anxious Skin exam: Present: normal color Course Vital Signs 10/15/17 10/15/17 07:20 08:29 Temperature 96.8 F L 97.6 F Pulse Rate 68 77 Respiratory 18 16 Rate Blood Pressure 110/68 137/78 O2 Sat by Pulse 100 100 Oximetry - Reevaluation(s) Reevaluation #1: 10/15/17 09:06 Patient reevaluated and feeling somewhat better. Patient still feeling anxious and is receptive to Ativan. 10/15/17 10:03 Patient again reexamined. Patient resting comfortably in bed. Patient states she has some mild nausea however has not vomited. Patient states Zofran does not work for her and refuses it. Disposition Clinical Impression: Acute vomiting, Anxiety Disposition: HOME SELF-CARE Condition: Stable Instructions: Acute Nausea and Vomiting (ED), Anxiety (ED) Additional Instructions: Please follow-up with primary care physician in the next day or 2 for recheck. Return for uncontrolled vomiting, pain and worsening or change in symptoms or other concerns. Referrals: Catherine Laboy MD [Primary Care Provider] - 1-2 days Time of Disposition: 10:04
[2017-10-15 08:30] VITALS: RESP 16
[2017-10-15] MEDS ORDERED: LORazepam 1 MG TAB PO STA (09:05)
[2017-10-15] MEDS ORDERED: FAMOTIDINE 20 MG TAB PO STA (10:02)
[2017-10-15 10:24] VITALS: BP 125/82; PULSE 85; TEMP 98
== END 2017-10-15 10:23 | disposition home or self-care (01) ==
LOC: EC 07:02
DX: R11.10 Vomiting, unspecified (principal); F41.9 Anxiety disorder, unspecified; F32.9 Major depressive disorder, single episode, unspecified; Z87.891 Personal history of nicotine dependence; Z88.2 Allergy status to sulfonamides; Z79.3 Long term (current) use of hormonal contraceptives; Z79.899 Other long term (current) drug therapy
CPT/HCPCS: 99283; 96372 ×2; J1200; J2765

== ENCOUNTER 2017-12-11 06:44 | Emergency (ER) | payer OTHER ==
[2017-12-11 06:55] VITALS: RESP 16
[2017-12-11] MEDS ORDERED: ONDANSETRON 4 MG/2 ML VIAL IVP STA (07:01)
[2017-12-11] MEDS ORDERED: diphenhydrAMINE 50 MG/ML 1 ML VIAL IVP STA (07:01)
[2017-12-11] MEDS ORDERED: SODIUM CHLORIDE 0.9% 1,000 ML IV STA (07:01)
[2017-12-11 07:58] LABS: ALT 25 U/L (9-52); AST 21 U/L (14-36); Albumin 4.1 g/dL (3.5-5.0); Alkaline Phosphatase 54 U/L (38-126); Amylase 45 U/L (30-110); Anion Gap 15 mmol/L; Blood Urea Nitrogen 12 mg/dL (7-17); Calcium 9.6 mg/dL (8.4-10.2); Carbon Dioxide 21 mmol/L (22-30); Chloride 105 mmol/L (98-107); Glucose 149 mg/dL (74-99); Lipase 58 U/L (23-300); Sodium 141 mmol/L (137-145); Total Bilirubin 0.3 mg/dL (0.2-1.3); Total Protein 6.7 g/dL (6.3-8.2)
[2017-12-11 08:00] LABS: HCT 38.3 % (34.0-46.0); HGB 13.2 gm/dL (11.4-16.0); MCH 29.6 pg (25.0-35.0); MCHC 34.6 g/dL (31.0-37.0); MCV 85.6 fL (80.0-100.0); Mean Platelet Volume 7.9; Platelet Count 297 k/uL (150-450); RBC 4.48 m/uL (3.80-5.40); RDW 13.1 % (11.5-15.5); WBC 9.3 k/uL (3.8-10.6)
[2017-12-11] MEDS ORDERED: METOCLOPRAMIDE 5 MG/ML 2 ML VIAL IVP STA (08:04)
[2017-12-11] MEDS ORDERED: LORazepam 2 MG/ML INJ IV STA (08:04)
[2017-12-11] MEDS ORDERED: SODIUM CHLORIDE 0.9% 1,000 ML IV ONE (08:05)
[2017-12-11] MEDS ORDERED: KETOROLAC 30 MG/ML 1 ML VIAL IVP STA (08:12)
[2017-12-11 08:18] LABS: Appearance,Urine Cloudy (Clear); Bilirubin,Urine Negative (Negative); Blood,Urine Small (Negative); Color,Urine Amber; Glucose,Urine (UA) Negative (Negative); Ketones,Urine 2+ (Negative); Protein,Urine 2+ (Negative)
[2017-12-11 08:19] LABS: Amorphous Sediment,Urine Moderate /hpf; Bacteria,Urine Few /hpf; Leukocyte Esterase,Urine Small (Negative); Nitrite,Urine Negative (Negative); RBC,Urine 100 /hpf (0-5); WBC,Urine 10 /hpf (0-5)
--- NOTE | 2017-12-11 08:20 | ED ---
Nausea/Vomiting/Diarrhea HPI - General Chief complaint: Nausea/Vomiting/Diarrhea Stated complaint: vomiting, abdominal pain Time Seen by Provider: 12/11/17 07:00 Source: patient, RN notes reviewed Mode of arrival: ambulatory Limitations: no limitations - History of Present Illness Initial comments: 27-year-old female presents emergency department to complaint of nausea vomiting. Patient states that she has issues with cyclic vomiting. Patient states that she also has history of with ovarian cysts. Patient states that she has been vomiting since last night and cannot stop. Patient states this is her normal symptoms. Denies any chest pain shortness breath no fevers no chills. She denies any dysuria, hematuria or any chance . Patient states that she does have mild abdominal pain but not out of the usual. Patient states that she is also out of her Xanax. Patient states she has issues with anxiety which makes his symptoms worse. - Related Data Home Medications Medication Instructions Recorded Confirmed ALPRAZolam [Xanax] 0.25 mg PO TID PRN 09/14/15 10/15/17 Medroxyprogesterone Acetate 150 mg IM Q90D 09/20/17 10/15/17 [Depo-Provera] Cyanocobalamin [Vitamin B-12] 500 mcg PO DAILY 10/15/17 10/15/17 Doxepin [SINEquan] 10 - 20 mg PO HS PRN 10/15/17 10/15/17 Escitalopram [Lexapro] 20 mg PO DAILY 10/15/17 10/15/17 Previous Rx's Medication Instructions Recorded Ondansetron Odt [Zofran ODT] 4 mg PO Q8HR PRN #20 tab 09/24/17 Metoclopramide [Reglan] 10 mg PO TID PRN #15 tab 12/11/17 Allergies Allergy/AdvReac Type Severity Reaction Status Date / Time Sulfa (Sulfonamide Allergy Dyspnea Verified 10/15/17 09:15 Antibiotics) Review of Systems ROS Statement: Those systems with pertinent positive or pertinent negative responses have been documented in the HPI. ROS Other: All systems not noted in ROS Statement are negative. Past Medical History Past Medical History: Asthma Additional Past Medical History / Comment(s): Mild intermittent asthma, ovarian cysts History of Any Multi-Drug Resistant Organisms: None Reported Past Surgical History: Adenoidectomy Past Anesthesia/Blood Transfusion Reactions: No Reported Reaction Past Psychological History: Anxiety, Depression Smoking Status: Former smoker Past Alcohol Use History: None Reported Past Drug Use History: Marijuana - Past Family History Father Additional Family Medical History / Comment(s): Father committed suicide at age 25. Mother Additional Family Medical History / Comment(s): Mother is alive at age 47 and did have similar symptoms to her when she was in her 20s. She does have history of anxiety and depression and attempted suicide in the past. Brother(s) Additional Family Medical History / Comment(s): Patient has 1 brother with no major medical problems. Patient does not have any sisters. General Exam Limitations: no limitations General appearance: alert, in no apparent distress Head exam: Present: atraumatic, normocephalic, normal inspection ENT exam: Present: normal oropharynx Neck exam: Present: normal inspection. Absent: tenderness, meningismus, lymphadenopathy Respiratory exam: Present: normal lung sounds bilaterally. Absent: respiratory distress, wheezes, rales, rhonchi, stridor Cardiovascular Exam: Present: regular rate, normal rhythm, normal heart sounds. Absent: systolic murmur, diastolic murmur, rubs, gallop, clicks GI/Abdominal exam: Present: soft, normal bowel sounds. Absent: distended, tenderness, guarding, rebound, rigid Back exam: Absent: CVA tenderness (R), CVA tenderness (L) Skin exam: Present: warm, dry, intact, normal color. Absent: rash Course Vital Signs 12/11/17 12/11/17 06:50 08:24 Temperature 96.9 F L Pulse Rate 74 80 Respiratory 16 16 Rate Blood Pressure 123/86 126/80 O2 Sat by Pulse 96 100 Oximetry Medical Decision Making - Medical Decision Making 27-year-old female presented emergency Department chief complaint nausea vomiting anxiety. Patient states she feels better after Toradol and antiemetics. Patient states she does have some ways nausea but much improved. Patient's CT does not show any evidence of stone does show some fluid possible ovarian cysts. Patient will follow-up with her primary care physician. Patient states she was out of her Xanax but there is prescription at the pharmacy for her. - Lab Data Result diagrams: 12/11/17 07:25 12/11/17 07:25 Lab Results 12/11/17 12/11/17 12/11/17 Range/Units 07:20 07:20 07:25 WBC (3.8-10.6) k/uL RBC (3.80-5.40) m/uL Hgb (11.4-16.0) gm/dL Hct (34.0-46.0) % MCV (80.0-100.0) fL MCH (25.0-35.0) pg MCHC (31.0-37.0) g/dL RDW (11.5-15.5) % Plt Count (150-450) k/uL Neutrophils % (Manual) % Lymphocytes % (Manual) % Monocytes % (Manual) % Eosinophils % (Manual) % Neutrophils # (Manual) (1.3-7.7) k/uL Lymphocytes # (Manual) (1.0-4.8) k/uL Monocytes # (Manual) (0-1.0) k/uL Eosinophils # (Manual) (0-0.7) k/uL Nucleated RBCs (0-0) /100 WBC Manual Slide Review RBC Morphology Sodium 141 (137-145) mmol/L Potassium 4.0 (3.5-5.1) mmol/L Chloride 105 (98-107) mmol/L Carbon Dioxide 21 L (22-30) mmol/L Anion Gap 15 mmol/L BUN 12 (7-17) mg/dL Creatinine 0.61 (0.52-1.04) mg/dL Est GFR (CKD-EPI)AfAm >90 (>60 ml/min/1.73 sqM) Est GFR (CKD-EPI)NonAf >90 (>60 ml/min/1.73 sqM) Glucose 149 H (74-99) mg/dL Calcium 9.6 (8.4-10.2) mg/dL Total Bilirubin 0.3 (0.2-1.3) mg/dL AST 21 (14-36) U/L ALT 25 (9-52) U/L Alkaline Phosphatase 54 (38-126) U/L Total Protein 6.7 (6.3-8.2) g/dL Albumin 4.1 (3.5-5.0) g/dL Amylase 45 (30-110) U/L Lipase 58 (23-300) U/L Urine Color Stephanie Urine Appearance Cloudy H (Clear) Urine pH 7.0 (5.0-8.0) Ur Specific [employer] 1.010 (1.001-1.035) Urine Protein 2+ H (Negative) Urine Glucose (UA) Negative (Negative) Urine Ketones 2+ H (Negative) Urine Blood Small (Negative) Urine Nitrite Negative (Negative) Urine Bilirubin Negative (Negative) Urine Urobilinogen 2.0 (<2.0) mg/dL Ur Leukocyte Esterase Small (Negative) Urine RBC 100 H (0-5) /hpf Urine WBC 10 H (0-5) /hpf Amorphous Sediment Moderate H (None) /hpf Urine Bacteria Few H (None) /hpf Urine HCG, Qual Not Detected (Not Detectd) 12/11/17 Range/Units 07:25 WBC 9.3 (3.8-10.6) k/uL RBC 4.48 (3.80-5.40) m/uL Hgb 13.2 (11.4-16.0) gm/dL Hct 38.3 (34.0-46.0) % MCV 85.6 (80.0-100.0) fL MCH 29.6 (25.0-35.0) pg MCHC 34.6 (31.0-37.0) g/dL RDW 13.1 (11.5-15.5) % Plt Count 297 (150-450) k/uL Neutrophils % (Manual) 63 % Lymphocytes % (Manual) 27 % Monocytes % (Manual) 7 % Eosinophils % (Manual) 3 % Neutrophils # (Manual) 5.86 (1.3-7.7) k/uL Lymphocytes # (Manual) 2.51 (1.0-4.8) k/uL Monocytes # (Manual) 0.65 (0-1.0) k/uL Eosinophils # (Manual) 0.28 (0-0.7) k/uL Nucleated RBCs 0 (0-0) /100 WBC Manual Slide Review Performed RBC Morphology Normal Sodium (137-145) mmol/L Potassium (3.5-5.1) mmol/L Chloride (98-107) mmol/L Carbon Dioxide (22-30) mmol/L Anion Gap mmol/L BUN (7-17) mg/dL Creatinine (0.52-1.04) mg/dL Est GFR (CKD-EPI)AfAm (>60 ml/min/1.73 sqM) Est GFR (CKD-EPI)NonAf (>60 ml/min/1.73 sqM) Glucose (74-99) mg/dL Calcium (8.4-10.2) mg/dL Total Bilirubin (0.2-1.3) mg/dL AST (14-36) U/L ALT (9-52) U/L Alkaline Phosphatase (38-126) U/L Total Protein (6.3-8.2) g/dL Albumin (3.5-5.0) g/dL Amylase (30-110) U/L Lipase (23-300) U/L Urine Color Urine Appearance (Clear) Urine pH (5.0-8.0) Ur Specific [employer] (1.001-1.035) Urine Protein (Negative) Urine Glucose (UA) (Negative) Urine Ketones (Negative) Urine Blood (Negative) Urine Nitrite (Negative) Urine Bilirubin (Negative) Urine Urobilinogen (<2.0) mg/dL Ur Leukocyte Esterase (Negative) Urine RBC (0-5) /hpf Urine WBC (0-5) /hpf Amorphous Sediment (None) /hpf Urine Bacteria (None) /hpf Urine HCG, Qual (Not Detectd) Disposition Clinical Impression: Abdominal pain, Nausea & vomiting, Anxiety Disposition: HOME SELF-CARE Condition: Stable Instructions: Acute Nausea and Vomiting (ED), Abdominal Pain (ED) Additional Instructions: Please return to the Emergency Department if symptoms worsen or any other concerns. Prescriptions: Metoclopramide [Reglan] 10 mg PO TID PRN #15 tab PRN Reason: GERD Referrals: Catherine Laboy MD [Primary Care Provider] - 1-2 days Time of Disposition: 09:43
[2017-12-11 08:29] LABS: Eosinophils # (M) 0.28 k/uL (0-0.7); Lymphocytes # (M) 2.51 k/uL (1.0-4.8); Monocytes # (M) 0.65 k/uL (0-1.0); Neutrophils # (M) 5.86 k/uL (1.3-7.7); Neutrophils % (M) 63 %; Nucleated Red Blood Cells 0 /100 WBC (0-0); Total Cells Counted 100
--- NOTE | 2017-12-11 09:11 | CT ---
EXAMINATION TYPE: CT abdomen pelvis wo con DATE OF EXAM: 12/11/2017 COMPARISON: 09/22/2017 HISTORY: 27-year-old female with vomiting, right lower quadrant abdominal pain since 10pm yesterday CT DLP: 264.10 mGycm. Automated exposure control for dose reduction was used. TECHNIQUE: Contiguous axial scanning of the abdomen and pelvis without IV contrast. Coronal and sagit ellie reconstructions performed. FINDINGS: Heart normal size without pericardial effusion. Lung bases clear without pleural effusion. Noncontrast appearance of the liver, gallbladder, adrenal glands, kidneys, spleen, and pancreas show no gross abnormality. No dilated small bowel, free fluid, or free air. No mesenteric or retroperitoneal lymphadenopathy. Normal appendix visualized. No significant stool burden or pericolonic inflammatory change. Uterus and ovaries are visualized. Clustered bowel loops and mottled air in the right adnexa likely r elating to intraluminal small bowel air. No abnormal fluid collection in the pelvis. Some prominent pelvic lymph nodes measure up to 1.2 cm along the left external iliac chain versus 1.0 cm on 09/22/2017, probably reactive/post inflammatory. Pelvic phleboliths are unchanged. Bones: Small disc bulge at L5-S1. No osseous destructive process. IMPRESSION: 1. Normal appendix. 2. No nephrolithiasis or hydronephrosis. 3. Limited noncontrast exam. There is mottled air in the right adnexa which is most likely air locat ed within clustered small bowel loops.
[2017-12-11 09:50] VITALS: BP 106/56; PULSE 72; TEMP 98.1
== END 2017-12-11 09:50 | disposition home or self-care (01) ==
LOC: EC 06:44
DX: R10.9 Unspecified abdominal pain (principal); R11.2 Nausea with vomiting, unspecified; F41.9 Anxiety disorder, unspecified; F32.9 Major depressive disorder, single episode, unspecified; Z87.891 Personal history of nicotine dependence; Z79.899 Other long term (current) drug therapy; Z88.2 Allergy status to sulfonamides
CPT/HCPCS: 36415; 80053; 82150; 83690; 85025; 81001; 81025; 74176; 99284; 96374; 96375 ×4; 96361 ×2; J2060; J1200; J2765; J2405; J1885

== ENCOUNTER 2017-12-12 01:14 | Emergency (ER) | payer OTHER ==
[2017-12-12 01:27] VITALS: TEMP 98.9
[2017-12-12] MEDS ORDERED: SODIUM CHLORIDE 0.9% 1,000 ML IV STA (01:43)
[2017-12-12] MEDS ORDERED: ONDANSETRON 4 MG/2 ML VIAL IVP STA (01:43)
[2017-12-12] MEDS ORDERED: KETOROLAC 30 MG/ML 1 ML VIAL IVP STA (01:43)
[2017-12-12 01:48] VITALS: BP 144/99; PULSE 65; RESP 16
--- NOTE | 2017-12-12 01:56 | ED ---
Nausea/Vomiting/Diarrhea HPI - General Chief complaint: Nausea/Vomiting/Diarrhea Stated complaint: Abdominal Pain, vomiting Time Seen by Provider: 12/12/17 01:34 Source: patient, RN notes reviewed Mode of arrival: wheelchair Limitations: no limitations - History of Present Illness Initial comments: This is a 27-year-old female who presents to the emergency department with chief complaint of nausea, vomiting and right lower quadrant pain. Patient was evaluated yesterday with the same problem. Workup was unremarkable and patient was discharged home with Reglan. She does have a history of ovarian cyst as well as cyclic vomiting. Patient states that she continues to have symptoms. Denies any worsening of symptoms. States she does continue to have nausea and vomiting. Denies constipation or diarrhea. Reports associated chills. Denies fevers, chest pain, shortness of breath, dysuria. - Related Data Home Medications Medication Instructions Recorded Confirmed ALPRAZolam [Xanax] 0.25 mg PO TID PRN 09/14/15 12/11/17 Medroxyprogesterone Acetate 150 mg IM Q90D 09/20/17 12/11/17 [Depo-Provera] Cyanocobalamin [Vitamin B-12] 500 mcg PO DAILY 10/15/17 12/11/17 Doxepin [SINEquan] 10 - 20 mg PO HS PRN 10/15/17 12/11/17 Escitalopram [Lexapro] 20 mg PO DAILY 10/15/17 12/11/17 Previous Rx's Medication Instructions Recorded Ondansetron Odt [Zofran ODT] 4 mg PO Q8HR PRN #20 tab 09/24/17 Metoclopramide [Reglan] 10 mg PO TID PRN #15 tab 12/11/17 Allergies Allergy/AdvReac Type Severity Reaction Status Date / Time Sulfa (Sulfonamide Allergy Dyspnea Verified 12/12/17 01:27 Antibiotics) Review of Systems ROS Statement: Those systems with pertinent positive or pertinent negative responses have been documented in the HPI. ROS Other: All systems not noted in ROS Statement are negative. Past Medical History Past Medical History: Asthma Additional Past Medical History / Comment(s): Mild intermittent asthma, ovarian cysts, History of Any Multi-Drug Resistant Organisms: None Reported Past Surgical History: Adenoidectomy Past Anesthesia/Blood Transfusion Reactions: No Reported Reaction Past Psychological History: Anxiety, Depression Smoking Status: Former smoker Past Alcohol Use History: None Reported Past Drug Use History: Marijuana - Past Family History Father Additional Family Medical History / Comment(s): Father committed suicide at age 25. Mother Additional Family Medical History / Comment(s): Mother is alive at age 47 and did have similar symptoms to her when she was in her 20s. She does have history of anxiety and depression and attempted suicide in the past. Brother(s) Additional Family Medical History / Comment(s): Patient has 1 brother with no major medical problems. Patient does not have any sisters. General Exam - General Exam Comments Initial Comments: General: Awake and alert, well-developed; in no apparent distress. Does not appear acutely ill. HEENT: Head atraumatic, normocephalic. Pupils are equal, round and reactive to light. Extraocular movements intact. Oropharynx moist without erythema or exudate. Neck: Supple. Normal ROM. Cardiovascular: Regular rate and rhythm. No murmurs, rubs or gallops. Chest symmetrical. Respiratory: Lungs clear to auscultation bilaterally. No wheezes, rales or rhonchi. Normal respiratory effort with no use of accessory muscles. Abdomen: Soft, non-distended. Tenderness on palpation of right lower quadrant. No rigidity, rebound or guarding. Normal bowel sounds in all 4 quadrants. Musculoskeletal: Normal ROM, no tenderness bilateral upper and lower extremities. Skin: Almedia, warm and dry without rashes or lesions. Neurological: Alert and oriented x3. CN II-XII grossly intact. Speech is fluent and answers are appropriate. No focal neuro deficits. Psychiatric: Normal mood and affect. No overt signs of depression or anxiety noted. Limitations: no limitations Course Vital Signs 12/12/17 12/12/17 01:24 01:45 Temperature 98.9 F Pulse Rate 67 65 Respiratory 18 16 Rate Blood Pressure 116/80 144/99 O2 Sat by Pulse 99 98 Oximetry Medical Decision Making - Medical Decision Making This is a 27-year-old female presents to the emergency department with nausea and vomiting. Patient was seen yesterday with the same problem. She denies any worsening in her symptoms. Full workup was performed and was unremarkable. Patient did have blood in her urine and a computed tomography scan was obtained. This was unremarkable. 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 Return to the emergency department with continued nausea and vomiting. She also complained of some right lower quadrant pain. This had not increased since prior evaluation. Vital signs stable and she is in no acute distress. CBC, CMP and UA showed no significant changes from yesterday. Patient was given Reglan, Zofran and Benadryl in the emergency department and symptoms are controlled. Patient will be discharged home at this time. She is in agreement voices understanding. All questions were answered. - Lab Data Result diagrams: 12/12/17 02:04 12/12/17 02:04 Lab Results 12/12/17 12/12/17 12/12/17 Range/Units 02:04 02:04 02:04 WBC 6.7 (3.8-10.6) k/uL RBC 4.31 (3.80-5.40) m/uL Hgb 12.8 (11.4-16.0) gm/dL Hct 36.1 (34.0-46.0) % MCV 83.8 (80.0-100.0) fL MCH 29.8 (25.0-35.0) pg MCHC 35.5 (31.0-37.0) g/dL RDW 13.1 (11.5-15.5) % Plt Count 311 (150-450) k/uL Neutrophils % 46 % Lymphocytes % 36 % Monocytes % 10 % Eosinophils % 0 % Basophils % 0 % Neutrophils # 3.1 (1.3-7.7) k/uL Lymphocytes # 2.4 (1.0-4.8) k/uL Monocytes # 0.6 (0-1.0) k/uL Eosinophils # 0.0 (0-0.7) k/uL Basophils # 0.0 (0-0.2) k/uL Manual Slide Review Performed Reactive Lymphocytes Present Sodium 142 (137-145) mmol/L Potassium 3.6 (3.5-5.1) mmol/L Chloride 107 (98-107) mmol/L Carbon Dioxide 21 L (22-30) mmol/L Anion Gap 14 mmol/L BUN 13 (7-17) mg/dL Creatinine 0.60 (0.52-1.04) mg/dL Est GFR (CKD-EPI)AfAm >90 (>60 ml/min/1.73 sqM) Est GFR (CKD-EPI)NonAf >90 (>60 ml/min/1.73 sqM) Glucose 117 H (74-99) mg/dL Calcium 9.6 (8.4-10.2) mg/dL Total Bilirubin 0.4 (0.2-1.3) mg/dL AST 21 (14-36) U/L ALT 30 (9-52) U/L Alkaline Phosphatase 43 (38-126) U/L Total Protein 6.7 (6.3-8.2) g/dL Albumin 4.0 (3.5-5.0) g/dL Urine Color Yellow Urine Appearance Cloudy H (Clear) Urine pH 6.0 (5.0-8.0) Ur Specific [place] 1.030 (1.001-1.035) Urine Protein 2+ H (Negative) Urine Glucose (UA) Negative (Negative) Urine Ketones 2+ H (Negative) Urine Blood Negative (Negative) Urine Nitrite Negative (Negative) Urine Bilirubin Negative (Negative) Urine Urobilinogen 2.0 (<2.0) mg/dL Ur Leukocyte Esterase Negative (Negative) Urine RBC 4 (0-5) /hpf Urine WBC 13 H (0-5) /hpf Ur Squamous Epith Cells 12 H (0-4) /hpf Urine Bacteria Rare H (None) /hpf Urine Mucus Many H (None) /hpf Disposition Clinical Impression: Nausea & vomiting, Abdominal pain Disposition: HOME SELF-CARE Condition: Good Instructions: Acute Nausea and Vomiting (ED), Abdominal Pain (ED) Additional Instructions: Please follow up with primary care provider within 1-2 days. Return to emergency department if symptoms should worsen or any concerns arise. Referrals: Catherine Laboy MD [Primary Care Provider] - 1-2 days Time of Disposition: 03:10
[2017-12-12 02:18] LABS: Basophils % (A) 0 %; Eosinophils % (A) 0 %; HCT 36.1 % (34.0-46.0); HGB 12.8 gm/dL (11.4-16.0); Lymphocytes # (A) 2.4 k/uL (1.0-4.8); Lymphocytes % (A) 36 %; MCH 29.8 pg (25.0-35.0); MCHC 35.5 g/dL (31.0-37.0); MCV 83.8 fL (80.0-100.0); Mean Platelet Volume 7.2; Monocytes # (A) 0.6 k/uL (0-1.0); Monocytes % (A) 10 %; Neutrophils # (A) 3.1 k/uL (1.3-7.7); Neutrophils % (A) 46 %; Platelet Count 311 k/uL (150-450); RBC 4.31 m/uL (3.80-5.40); RDW 13.1 % (11.5-15.5); WBC 6.7 k/uL (3.8-10.6)
[2017-12-12 02:19] LABS: Appearance,Urine Cloudy (Clear); Bacteria,Urine Rare /hpf; Bilirubin,Urine Negative (Negative); Blood,Urine Negative (Negative); Color,Urine Yellow; Glucose,Urine (UA) Negative (Negative); Ketones,Urine 2+ (Negative); Leukocyte Esterase,Urine Negative (Negative); Mucus,Urine Many /hpf; Nitrite,Urine Negative (Negative); Protein,Urine 2+ (Negative); RBC,Urine 4 /hpf (0-5); Squamous Epithelial Cell,Urine 12 /hpf (0-4); WBC,Urine 13 /hpf (0-5)
[2017-12-12] MEDS ORDERED: METOCLOPRAMIDE 5 MG/ML 2 ML VIAL IVP STA (02:21)
[2017-12-12] MEDS ORDERED: diphenhydrAMINE 50 MG/ML 1 ML VIAL IVP STA (02:21)
[2017-12-12 02:25] LABS: ALT 30 U/L (9-52); AST 21 U/L (14-36); Alkaline Phosphatase 43 U/L (38-126); Anion Gap 14 mmol/L; Blood Urea Nitrogen 13 mg/dL (7-17); Calcium 9.6 mg/dL (8.4-10.2); Carbon Dioxide 21 mmol/L (22-30); Chloride 107 mmol/L (98-107); Glucose 117 mg/dL (74-99); Potassium 3.6 mmol/L (3.5-5.1); Sodium 142 mmol/L (137-145); Total Bilirubin 0.4 mg/dL (0.2-1.3); Total Protein 6.7 g/dL (6.3-8.2)
[2017-12-12 02:38] LABS: Reactive Lymphocytes Present
== END 2017-12-12 03:24 | disposition home or self-care (01) ==
LOC: EC 01:14
DX: R11.2 Nausea with vomiting, unspecified (principal); R10.31 Right lower quadrant pain; F32.9 Major depressive disorder, single episode, unspecified; F41.9 Anxiety disorder, unspecified; Z87.891 Personal history of nicotine dependence; Z79.899 Other long term (current) drug therapy; Z88.2 Allergy status to sulfonamides
CPT/HCPCS: 99284; 96374; 96375 ×3; 36415; 80053; 85025; 81001; 96361; J1200; J2765; J2405; J1885

== ENCOUNTER 2018-02-26 06:18 | Emergency (ER) | payer OTHER ==
[2018-02-26] MEDS ORDERED: SODIUM CHLORIDE 0.9% 1,000 ML IV STA ×2 (06:42)
[2018-02-26] MEDS ORDERED: ONDANSETRON 4 MG/2 ML VIAL IVP STA ×2 (06:42→07:37)
[2018-02-26] MEDS ORDERED: LORazepam 2 MG/ML INJ IV STA ×2 (06:42→06:48)
[2018-02-26] MEDS ORDERED: PANTOPRAZOLE 40 MG/10 ML VIAL IVP STA ×2 (06:42→06:47)
[2018-02-26] MEDS ORDERED: METOCLOPRAMIDE 5 MG/ML 2 ML VIAL IVP STA (06:51)
[2018-02-26 07:07] LABS: Appearance,Urine Cloudy (Clear); Bacteria,Urine Rare /hpf; Bilirubin,Urine Negative (Negative); Blood,Urine Negative (Negative); Color,Urine Yellow; Glucose,Urine (UA) Negative (Negative); Ketones,Urine Trace (Negative); Leukocyte Esterase,Urine Trace (Negative); Mucus,Urine Moderate /hpf; Nitrite,Urine Negative (Negative); Protein,Urine 1+ (Negative); RBC,Urine 1 /hpf (0-5); Specific Gravity,Urine 1.025 (1.001-1.035); Squamous Epithelial Cell,Urine 7 /hpf (0-4); Urobilinogen,Urine <2.0 mg/dL (<2.0); WBC,Urine 12 /hpf (0-5)
[2018-02-26 07:15] LABS: HCT 40.2 % (34.0-46.0); MCH 30.2 pg (25.0-35.0); MCHC 34.7 g/dL (31.0-37.0); Mean Platelet Volume 7.3; Platelet Count 301 k/uL (150-450); RBC 4.62 m/uL (3.80-5.40); RDW 13.4 % (11.5-15.5); WBC 12.9 k/uL (3.8-10.6)
[2018-02-26 07:16] LABS: ALT 36 U/L (9-52); AST 25 U/L (14-36); Albumin 4.9 g/dL (3.5-5.0); Alkaline Phosphatase 48 U/L (38-126); Anion Gap 15 mmol/L; Blood Urea Nitrogen 18 mg/dL (7-17); Calcium 10.8 mg/dL (8.4-10.2); Carbon Dioxide 20 mmol/L (22-30); Chloride 103 mmol/L (98-107); Glucose 124 mg/dL (74-99); Lipase 58 U/L (23-300); Sodium 138 mmol/L (137-145); Total Bilirubin 0.6 mg/dL (0.2-1.3); Total Protein 7.3 g/dL (6.3-8.2)
--- NOTE | 2018-02-26 07:39 | ED ---
General Adult HPI - General Chief complaint: Nausea/Vomiting/Diarrhea Stated complaint: Vomiting Time Seen by Provider: 02/26/18 07:22 Source: patient, RN notes reviewed Mode of arrival: wheelchair Limitations: no limitations - History of Present Illness Initial comments: Patient is a pleasant 28-year-old female presenting to the emergency Department with complaints of nausea vomiting. Onset was yesterday. Patient has vomited several times. Patient has had one episode of diarrhea. Patient still feels nauseated at this time despite Reglan. Patient does complain of continued anxiety. Patient states overall she has not been taking her anxiety medicine as directed. Patient has not been able to take her Xanax in the last 24 hours and feels more anxious than normal. - Related Data Home Medications Medication Instructions Recorded Confirmed ALPRAZolam [Xanax] 0.25 mg PO TID PRN 09/14/15 12/11/17 Medroxyprogesterone Acetate 150 mg IM Q90D 09/20/17 12/11/17 [Depo-Provera] Cyanocobalamin [Vitamin B-12] 500 mcg PO DAILY 10/15/17 12/11/17 Doxepin [SINEquan] 10 - 20 mg PO HS PRN 10/15/17 12/11/17 Escitalopram [Lexapro] 20 mg PO DAILY 10/15/17 12/11/17 Previous Rx's Medication Instructions Recorded Ondansetron Odt [Zofran ODT] 4 mg PO Q8HR PRN #20 tab 09/24/17 Metoclopramide [Reglan] 10 mg PO TID PRN #15 tab 12/11/17 Allergies Allergy/AdvReac Type Severity Reaction Status Date / Time Sulfa (Sulfonamide Allergy Dyspnea Verified 02/26/18 06:23 Antibiotics) Review of Systems ROS Statement: Those systems with pertinent positive or pertinent negative responses have been documented in the HPI. ROS Other: All systems not noted in ROS Statement are negative. Constitutional: Denies: fever Eyes: Denies: eye pain ENT: Denies: ear pain Respiratory: Denies: cough Cardiovascular: Denies: chest pain Endocrine: Denies: fatigue Gastrointestinal: Reports: nausea, vomiting, diarrhea (1 episode). Denies: abdominal pain Genitourinary: Denies: dysuria Musculoskeletal: Denies: back pain Skin: Denies: rash Neurological: Denies: weakness Psychiatric: Reports: anxiety Past Medical History Past Medical History: Asthma Additional Past Medical History / Comment(s): Mild intermittent asthma, ovarian cysts, History of Any Multi-Drug Resistant Organisms: None Reported Past Surgical History: Adenoidectomy Past Anesthesia/Blood Transfusion Reactions: No Reported Reaction Past Psychological History: Anxiety, Depression Smoking Status: Former smoker Past Alcohol Use History: None Reported Past Drug Use History: Marijuana - Past Family History Father Additional Family Medical History / Comment(s): Father committed suicide at age 25. Mother Additional Family Medical History / Comment(s): Mother is alive at age 47 and did have similar symptoms to her when she was in her 20s. She does have history of anxiety and depression and attempted suicide in the past. Brother(s) Additional Family Medical History / Comment(s): Patient has 1 brother with no major medical problems. Patient does not have any sisters. General Exam Limitations: no limitations General appearance: alert, in no apparent distress Head exam: Present: atraumatic Eye exam: Present: normal appearance, PERRL ENT exam: Present: normal oropharynx Neck exam: Present: normal inspection Respiratory exam: Present: normal lung sounds bilaterally Cardiovascular Exam: Present: regular rate, normal rhythm GI/Abdominal exam: Present: soft, tenderness (Mild tenderness in the epigastric) , normal bowel sounds. Absent: distended, guarding, rebound, rigid, pulsatile mass Extremities exam: Present: normal inspection Neurological exam: Present: alert Psychiatric exam: Present: anxious (Patient does appear mildly anxious) Skin exam: Present: normal color Course Vital Signs 02/26/18 02/26/18 06:21 07:03 Temperature 98.3 F 99.2 F Pulse Rate 78 72 Respiratory 16 16 Rate Blood Pressure 140/77 124/76 O2 Sat by Pulse 99 99 Oximetry Medical Decision Making - Medical Decision Making Patient reevaluated. Patient states her right is coming and requests discharge home. Patient states she is starting to feel better. Patient refuses prescription stating she has Zofran at home. Patient is receptive to Benadryl stating that she still has some nausea and some anxiety. Patient updated on results - Lab Data Result diagrams: 02/26/18 06:35 02/26/18 06:35 Lab Results 02/26/18 02/26/18 02/26/18 Range/Units 06:20 06:20 06:35 WBC 12.9 H (3.8-10.6) k/uL RBC 4.62 (3.80-5.40) m/uL Hgb 14.0 (11.4-16.0) gm/dL Hct 40.2 (34.0-46.0) % MCV 87.0 (80.0-100.0) fL MCH 30.2 (25.0-35.0) pg MCHC 34.7 (31.0-37.0) g/dL RDW 13.4 (11.5-15.5) % Plt Count 301 (150-450) k/uL Sodium (137-145) mmol/L Potassium (3.5-5.1) mmol/L Chloride (98-107) mmol/L Carbon Dioxide (22-30) mmol/L Anion Gap mmol/L BUN (7-17) mg/dL Creatinine (0.52-1.04) mg/dL Est GFR (CKD-EPI)AfAm (>60 ml/min/1.73 sqM) Est GFR (CKD-EPI)NonAf (>60 ml/min/1.73 sqM) Glucose (74-99) mg/dL Calcium (8.4-10.2) mg/dL Total Bilirubin (0.2-1.3) mg/dL AST (14-36) U/L ALT (9-52) U/L Alkaline Phosphatase (38-126) U/L Total Protein (6.3-8.2) g/dL Albumin (3.5-5.0) g/dL Lipase (23-300) U/L Urine Color Yellow Urine Appearance Cloudy H (Clear) Urine pH 6.0 (5.0-8.0) Ur Specific [place] 1.025 (1.001-1.035) Urine Protein 1+ H (Negative) Urine Glucose (UA) Negative (Negative) Urine Ketones Trace H (Negative) Urine Blood Negative (Negative) Urine Nitrite Negative (Negative) Urine Bilirubin Negative (Negative) Urine Urobilinogen <2.0 (<2.0) mg/dL Ur Leukocyte Esterase Trace H (Negative) Urine RBC 1 (0-5) /hpf Urine WBC 12 H (0-5) /hpf Ur Squamous Epith Cells 7 H (0-4) /hpf Urine Bacteria Rare H (None) /hpf Urine Mucus Moderate H (None) /hpf Urine HCG, Qual Not Detected (Not Detectd) 02/26/18 Range/Units 06:35 WBC (3.8-10.6) k/uL RBC (3.80-5.40) m/uL Hgb (11.4-16.0) gm/dL Hct (34.0-46.0) % MCV (80.0-100.0) fL MCH (25.0-35.0) pg MCHC (31.0-37.0) g/dL RDW (11.5-15.5) % Plt Count (150-450) k/uL Sodium 138 (137-145) mmol/L Potassium 4.0 (3.5-5.1) mmol/L Chloride 103 (98-107) mmol/L Carbon Dioxide 20 L (22-30) mmol/L Anion Gap 15 mmol/L BUN 18 H (7-17) mg/dL Creatinine 0.60 (0.52-1.04) mg/dL Est GFR (CKD-EPI)AfAm >90 (>60 ml/min/1.73 sqM) Est GFR (CKD-EPI)NonAf >90 (>60 ml/min/1.73 sqM) Glucose 124 H (74-99) mg/dL Calcium 10.8 H (8.4-10.2) mg/dL Total Bilirubin 0.6 (0.2-1.3) mg/dL AST 25 (14-36) U/L ALT 36 (9-52) U/L Alkaline Phosphatase 48 (38-126) U/L Total Protein 7.3 (6.3-8.2) g/dL Albumin 4.9 (3.5-5.0) g/dL Lipase 58 (23-300) U/L Urine Color Urine Appearance (Clear) Urine pH (5.0-8.0) Ur Specific [place] (1.001-1.035) Urine Protein (Negative) Urine Glucose (UA) (Negative) Urine Ketones (Negative) Urine Blood (Negative) Urine Nitrite (Negative) Urine Bilirubin (Negative) Urine Urobilinogen (<2.0) mg/dL Ur Leukocyte Esterase (Negative) Urine RBC (0-5) /hpf Urine WBC (0-5) /hpf Ur Squamous Epith Cells (0-4) /hpf Urine Bacteria (None) /hpf Urine Mucus (None) /hpf Urine HCG, Qual (Not Detectd) - Radiology Data Radiology results: image reviewed (Abdominal x-ray shows no acute process) Disposition Clinical Impression: Vomiting, Anxiety Disposition: HOME SELF-CARE Condition: Stable Instructions: Acute Nausea and Vomiting (ED), Anxiety (ED) Additional Instructions: Please follow-up with primary care physician in the next couple days for recheck. Return for not tolerating fluids, pain, fevers, worsening symptoms or other concerns. Is patient prescribed a controlled substance at d/c from ED?: No Referrals: Catherine Laboy MD [Primary Care Provider] - 1-2 days Time of Disposition: 08:17
--- NOTE | 2018-02-26 08:05 | XR ---
EXAMINATION TYPE: XR abdomen 1V DATE OF EXAM: 02/26/2018 COMPARISON: 09/22/2017 INDICATION: Abdominal pain, vomiting TECHNIQUE: Single view abdomen upright view FINDINGS: There is a normal bowel gas pattern. No free air is evident. No suspicious air-fluid levels or differ ential air-fluid levels are present. No mass effect is evident. Some nonspecific small bowel gas is w ithin the pelvis. Psoas margins are normal. No organomegaly is present. No abnormal calcifications are evident. IMPRESSION: 1. Nonspecific abdomen.
[2018-02-26 08:16] LABS: Eosinophils # (M) 0.13 k/uL (0-0.7); Lymphocytes # (M) 4.13 k/uL (1.0-4.8); Monocytes # (M) 0.26 k/uL (0-1.0); Neutrophils # (M) 8.39 k/uL (1.3-7.7); Neutrophils % (M) 65 %; Nucleated Red Blood Cells 0 /100 WBC (0-0); Total Cells Counted 100
[2018-02-26] MEDS ORDERED: diphenhydrAMINE 50 MG/ML 1 ML VIAL IVP STA (08:16)
[2018-02-26 08:43] VITALS: BP 130/77; PULSE 79; RESP 18; TEMP 98.9
== END 2018-02-26 08:45 | disposition home or self-care (01) ==
LOC: EC 06:18
DX: R11.2 Nausea with vomiting, unspecified (principal); R19.7 Diarrhea, unspecified; R10.13 Epigastric pain; F41.9 Anxiety disorder, unspecified; Z88.2 Allergy status to sulfonamides; Z79.3 Long term (current) use of hormonal contraceptives; Z79.899 Other long term (current) drug therapy; Z87.891 Personal history of nicotine dependence
CPT/HCPCS: 99284; 96374; 96375 ×4; 96361 ×2; 36415; 80053; 83690; 85025; 81001; 81025; 74018; J2060; J1200; J2765; J2405; C9113

== ENCOUNTER 2018-02-27 07:23 | Emergency (ER) | payer OTHER ==
[2018-02-27] MEDS ORDERED: SODIUM CHLORIDE 0.9% 2,000 ML IV STA (08:04)
[2018-02-27] MEDS ORDERED: diphenhydrAMINE 50 MG/ML 1 ML VIAL IVP STA (08:05)
[2018-02-27] MEDS: PROMETHAZINE INJ 25 MG in SODIUM CHLORIDE 0.9% 50 ML IVPB STA ×2 (08:17→08:39)
[2018-02-27 08:22] LABS: HCT 38.9 % (34.0-46.0); HGB 13.4 gm/dL (11.4-16.0); MCH 29.6 pg (25.0-35.0); MCHC 34.4 g/dL (31.0-37.0); MCV 86.1 fL (80.0-100.0); Platelet Count 276 k/uL (150-450); RBC 4.52 m/uL (3.80-5.40); RDW 13.2 % (11.5-15.5); WBC 9.8 k/uL (3.8-10.6)
[2018-02-27] MEDS ORDERED: LORazepam 2 MG/ML INJ IV STA (08:26)
[2018-02-27] MEDS ORDERED: FAMOTIDINE 20 MG/2 ML VIAL IV STA (08:26)
[2018-02-27 08:35] LABS: ALT 33 U/L (9-52); AST 22 U/L (14-36); Albumin 4.2 g/dL (3.5-5.0); Alkaline Phosphatase 42 U/L (38-126); Amylase 54 U/L (30-110); Anion Gap 14 mmol/L; Blood Urea Nitrogen 18 mg/dL (7-17); Calcium 9.3 mg/dL (8.4-10.2); Carbon Dioxide 20 mmol/L (22-30); Chloride 103 mmol/L (98-107); Glucose 121 mg/dL (74-99); Lipase 52 U/L (23-300); Potassium 3.8 mmol/L (3.5-5.1); Sodium 137 mmol/L (137-145); Total Bilirubin 0.5 mg/dL (0.2-1.3); Total Protein 6.4 g/dL (6.3-8.2)
[2018-02-27 08:35] LABS: Appearance,Urine Clear (Clear); Bilirubin,Urine Negative (Negative); Blood,Urine Negative (Negative); Calcium Oxalate Crystals,Urine Rare /hpf; Color,Urine Yellow; Glucose,Urine (UA) Negative (Negative); Hyaline Casts,Urine 7 /lpf (0-2); Ketones,Urine Trace (Negative); Leukocyte Esterase,Urine Negative (Negative); Mucus,Urine Many /hpf; Nitrite,Urine Negative (Negative); Protein,Urine 1+ (Negative); RBC,Urine 1 /hpf (0-5); Specific Gravity,Urine 1.027 (1.001-1.035); Squamous Epithelial Cell,Urine 3 /hpf (0-4); Urobilinogen,Urine <2.0 mg/dL (<2.0); WBC,Urine 3 /hpf (0-5)
[2018-02-27] MEDS ORDERED: KETOROLAC 30 MG/ML 1 ML VIAL IVP STA (08:40)
--- NOTE | 2018-02-27 08:48 | ED ---
Nausea/Vomiting/Diarrhea HPI - General Chief complaint: Nausea/Vomiting/Diarrhea Stated complaint: Vomiting Time Seen by Provider: 02/27/18 08:03 Source: patient, RN notes reviewed Mode of arrival: ambulatory Limitations: no limitations - History of Present Illness Initial comments: This is a 28-year-old female presents emergency Department with chief complaint of nausea vomiting. Patient was seen here yesterday in the emergency department. Patient states she felt better so she went home. Patient states that this has been present last 3 days. Patient claims that she has a history of cyclic vomiting syndrome. Patient denies any fever or chills. She also states that she cannot take her Xanax so she is very anxious. Patient denies any chest pain or shortness of breath. She complains of diffuse abdominal pain. Denies any chance . Patient states that she tried medications at home but states is not helping his can't keep them down. - Related Data Home Medications Medication Instructions Recorded Confirmed ALPRAZolam [Xanax] 0.25 mg PO BID PRN 09/14/15 02/27/18 Medroxyprogesterone Acetate 150 mg IM Q90D 09/20/17 02/27/18 [Depo-Provera] Escitalopram [Lexapro] 20 mg PO DAILY 10/15/17 02/27/18 risperiDONE [RisperDAL] 1 mg PO DAILY 02/27/18 02/27/18 Previous Rx's Medication Instructions Recorded Promethazine Suppository 25 mg RECTAL QID #14 supp 02/27/18 [Phenergan] Allergies Allergy/AdvReac Type Severity Reaction Status Date / Time Sulfa (Sulfonamide Allergy Dyspnea Verified 02/27/18 07:48 Antibiotics) Review of Systems ROS Statement: Those systems with pertinent positive or pertinent negative responses have been documented in the HPI. ROS Other: All systems not noted in ROS Statement are negative. Past Medical History Past Medical History: Asthma Additional Past Medical History / Comment(s): Mild intermittent asthma, ovarian cysts, History of Any Multi-Drug Resistant Organisms: None Reported Past Surgical History: Adenoidectomy Past Anesthesia/Blood Transfusion Reactions: No Reported Reaction Past Psychological History: Anxiety, Depression Smoking Status: Former smoker Past Alcohol Use History: None Reported Past Drug Use History: Marijuana - Past Family History Father Additional Family Medical History / Comment(s): Father committed suicide at age 25. Mother Additional Family Medical History / Comment(s): Mother is alive at age 47 and did have similar symptoms to her when she was in her 20s. She does have history of anxiety and depression and attempted suicide in the past. Brother(s) Additional Family Medical History / Comment(s): Patient has 1 brother with no major medical problems. Patient does not have any sisters. General Exam Limitations: no limitations General appearance: alert, in no apparent distress Head exam: Present: atraumatic, normocephalic, normal inspection Eye exam: Present: normal appearance, PERRL, EOMI. Absent: scleral icterus, conjunctival injection, periorbital swelling ENT exam: Present: normal exam, normal oropharynx, mucous membranes moist Neck exam: Present: normal inspection. Absent: tenderness, meningismus, lymphadenopathy Respiratory exam: Present: normal lung sounds bilaterally. Absent: respiratory distress, wheezes, rales, rhonchi, stridor Cardiovascular Exam: Present: regular rate, normal rhythm, normal heart sounds. Absent: systolic murmur, diastolic murmur, rubs, gallop, clicks GI/Abdominal exam: Present: soft, tenderness (Mild to moderate diffuse), normal bowel sounds. Absent: distended, guarding, rebound, rigid Back exam: Absent: CVA tenderness (R), CVA tenderness (L) Skin exam: Present: warm, dry, intact, normal color. Absent: rash Course Vital Signs 02/27/18 07:40 Temperature 98.1 F Pulse Rate 109 H Respiratory 20 Rate Blood Pressure 123/90 O2 Sat by Pulse 99 Oximetry - Reevaluation(s) Reevaluation #1: 02/27/18 09:06 Patient reevaluated at this time states that she feels improved. She's had no episodes of emesis. Medical Decision Making - Medical Decision Making 28-year-old female presents from for nausea vomiting. Patient was given antiemetics, fluid states that she feels improved at this time. Patient be discharged with suppositories as she states that she cannot take oral medications at home. - Lab Data Result diagrams: 02/27/18 08:13 02/27/18 08:13 Lab Results 02/27/18 02/27/18 02/27/18 Range/Units 08:01 08:01 08:13 WBC (3.8-10.6) k/uL RBC (3.80-5.40) m/uL Hgb (11.4-16.0) gm/dL Hct (34.0-46.0) % MCV (80.0-100.0) fL MCH (25.0-35.0) pg MCHC (31.0-37.0) g/dL RDW (11.5-15.5) % Plt Count (150-450) k/uL Neutrophils % (Manual) % Lymphocytes % (Manual) % Monocytes % (Manual) % Eosinophils % (Manual) % Basophils % (Manual) % Neutrophils # (Manual) (1.3-7.7) k/uL Lymphocytes # (Manual) (1.0-4.8) k/uL Monocytes # (Manual) (0-1.0) k/uL Eosinophils # (Manual) (0-0.7) k/uL Basophils # (Manual) (0-0.2) k/uL Nucleated RBCs (0-0) /100 WBC Manual Slide Review Sodium 137 (137-145) mmol/L Potassium 3.8 (3.5-5.1) mmol/L Chloride 103 (98-107) mmol/L Carbon Dioxide 20 L (22-30) mmol/L Anion Gap 14 mmol/L BUN 18 H (7-17) mg/dL Creatinine 0.66 (0.52-1.04) mg/dL Est GFR (CKD-EPI)AfAm >90 (>60 ml/min/1.73 sqM) Est GFR (CKD-EPI)NonAf >90 (>60 ml/min/1.73 sqM) Glucose 121 H (74-99) mg/dL Calcium 9.3 (8.4-10.2) mg/dL Total Bilirubin 0.5 (0.2-1.3) mg/dL AST 22 (14-36) U/L ALT 33 (9-52) U/L Alkaline Phosphatase 42 (38-126) U/L Total Protein 6.4 (6.3-8.2) g/dL Albumin 4.2 (3.5-5.0) g/dL Amylase 54 (30-110) U/L Lipase 52 (23-300) U/L Urine Color Yellow Urine Appearance Clear (Clear) Urine pH 6.0 (5.0-8.0) Ur Specific [place] 1.027 (1.001-1.035) Urine Protein 1+ H (Negative) Urine Glucose (UA) Negative (Negative) Urine Ketones Trace H (Negative) Urine Blood Negative (Negative) Urine Nitrite Negative (Negative) Urine Bilirubin Negative (Negative) Urine Urobilinogen <2.0 (<2.0) mg/dL Ur Leukocyte Esterase Negative (Negative) Urine RBC 1 (0-5) /hpf Urine WBC 3 (0-5) /hpf Ur Squamous Epith Cells 3 (0-4) /hpf Calcium Oxalate Crystal Rare H (None) /hpf Hyaline Casts 7 H (0-2) /lpf Urine Mucus Many H (None) /hpf Urine HCG, Qual Not Detected (Not Detectd) 02/27/18 Range/Units 08:13 WBC 9.8 (3.8-10.6) k/uL RBC 4.52 (3.80-5.40) m/uL Hgb 13.4 (11.4-16.0) gm/dL Hct 38.9 (34.0-46.0) % MCV 86.1 (80.0-100.0) fL MCH 29.6 (25.0-35.0) pg MCHC 34.4 (31.0-37.0) g/dL RDW 13.2 (11.5-15.5) % Plt Count 276 (150-450) k/uL Neutrophils % (Manual) 81 % Lymphocytes % (Manual) 16 % Monocytes % (Manual) 1 % Eosinophils % (Manual) 1 % Basophils % (Manual) 1 % Neutrophils # (Manual) 7.94 H (1.3-7.7) k/uL Lymphocytes # (Manual) 1.57 (1.0-4.8) k/uL Monocytes # (Manual) 0.10 (0-1.0) k/uL Eosinophils # (Manual) 0.10 (0-0.7) k/uL Basophils # (Manual) 0.10 (0-0.2) k/uL Nucleated RBCs 0 (0-0) /100 WBC Manual Slide Review Performed Sodium (137-145) mmol/L Potassium (3.5-5.1) mmol/L Chloride (98-107) mmol/L Carbon Dioxide (22-30) mmol/L Anion Gap mmol/L BUN (7-17) mg/dL Creatinine (0.52-1.04) mg/dL Est GFR (CKD-EPI)AfAm (>60 ml/min/1.73 sqM) Est GFR (CKD-EPI)NonAf (>60 ml/min/1.73 sqM) Glucose (74-99) mg/dL Calcium (8.4-10.2) mg/dL Total Bilirubin (0.2-1.3) mg/dL AST (14-36) U/L ALT (9-52) U/L Alkaline Phosphatase (38-126) U/L Total Protein (6.3-8.2) g/dL Albumin (3.5-5.0) g/dL Amylase (30-110) U/L Lipase (23-300) U/L Urine Color Urine Appearance (Clear) Urine pH (5.0-8.0) Ur Specific [place] (1.001-1.035) Urine Protein (Negative) Urine Glucose (UA) (Negative) Urine Ketones (Negative) Urine Blood (Negative) Urine Nitrite (Negative) Urine Bilirubin (Negative) Urine Urobilinogen (<2.0) mg/dL Ur Leukocyte Esterase (Negative) Urine RBC (0-5) /hpf Urine WBC (0-5) /hpf Ur Squamous Epith Cells (0-4) /hpf Calcium Oxalate Crystal (None) /hpf Hyaline Casts (0-2) /lpf Urine Mucus (None) /hpf Urine HCG, Qual (Not Detectd) Disposition Clinical Impression: Abdominal pain, Vomiting, Anxiety Disposition: HOME SELF-CARE Condition: Stable Instructions: Acute Nausea and Vomiting (ED) Additional Instructions: Please return to the Emergency Department if symptoms worsen or any other concerns. Prescriptions: Promethazine Suppository [Phenergan] 25 mg RECTAL QID #14 supp Is patient prescribed a controlled substance at d/c from ED?: No Referrals: Catherine Laboy MD [Primary Care Provider] - 1-2 days Time of Disposition: 09:08
[2018-02-27 08:53] LABS: Lymphocytes # (M) 1.57 k/uL (1.0-4.8); Neutrophils # (M) 7.94 k/uL (1.3-7.7); Neutrophils % (M) 81 %; Nucleated Red Blood Cells 0 /100 WBC (0-0); Total Cells Counted 100
[2018-02-27 09:36] VITALS: BP 107/79; PULSE 91; RESP 16; TEMP 97.8
== END 2018-02-27 09:34 | disposition home or self-care (01) ==
LOC: EC 07:23
DX: F41.9 Anxiety disorder, unspecified (principal); R11.2 Nausea with vomiting, unspecified; R10.84 Generalized abdominal pain; F32.9 Major depressive disorder, single episode, unspecified; Z87.891 Personal history of nicotine dependence; Z79.3 Long term (current) use of hormonal contraceptives; Z79.899 Other long term (current) drug therapy; Z88.2 Allergy status to sulfonamides; Z81.8 Family history of other mental and behavioral disorders
CPT/HCPCS: 36415; 80053; 82150; 83690; 85025; 81001; 81025; 99284; 96374; 96375 ×4; 96361; J2060; J1200; J2550; J1885

== ENCOUNTER 2018-04-27 08:29 | Emergency (ER) | payer OTHER ==
[2018-04-27 08:33] VITALS: RESP 18
[2018-04-27] MEDS ORDERED: diphenhydrAMINE 50 MG/ML 1 ML VIAL IVP STA (08:51)
[2018-04-27] MEDS ORDERED: SODIUM CHLORIDE 0.9% 500 ML IV STA (08:51)
[2018-04-27] MEDS ORDERED: METOCLOPRAMIDE 5 MG/ML 2 ML VIAL IVP STA (08:51)
[2018-04-27] MEDS ORDERED: LORazepam 2 MG/ML INJ IV STA (08:51)
[2018-04-27] MEDS ORDERED: SODIUM CHLORIDE 0.9% 1,000 ML IV STA (08:51)
--- NOTE | 2018-04-27 09:06 | ED ---
General Adult HPI - General Chief complaint: Abdominal Pain Stated complaint: Abd Pain, Anxiety Time Seen by Provider: 04/27/18 08:45 Source: patient Mode of arrival: wheelchair Limitations: no limitations - History of Present Illness Initial comments: 28 year-old female patient presents to the emergency department today for evaluation of vomiting and abdominal pain. Patient states she is having sharp stabbing pain to her midepigastric region and a dull aching pain in her lower abdomen. Patient states she has been vomiting since 8 PM last evening. Patient states she occasionally gets bouts of cyclic vomiting syndrome that her physician believes is related to her anxiety. Patient states that she has felt her anxiety increasing and feels like her heart is racing. Patient denies any constipation or diarrhea with this. Denies any fevers but states she has been chilled. Patient states her symptoms are similar to when she has exacerbations of the cyclic vomiting. Patient states there is a chance that she is . She denies any hematuria, dysuria, urinary frequency, urinary urgency. Patient denies any recent rash, shortness breath, chest pain, back pain, numbness, tingling, dizziness, weakness, headache, visual changes, or any other complaints. Patient does admit to smoking marijuana on a daily basis. - Related Data Home Medications Medication Instructions Recorded Confirmed ALPRAZolam [Xanax] 0.25 mg PO BID PRN 09/14/15 02/27/18 Medroxyprogesterone Acetate 150 mg IM Q90D 09/20/17 02/27/18 [Depo-Provera] Escitalopram [Lexapro] 20 mg PO DAILY 10/15/17 02/27/18 risperiDONE [RisperDAL] 1 mg PO DAILY 02/27/18 02/27/18 Previous Rx's Medication Instructions Recorded Promethazine Suppository 25 mg RECTAL QID #14 supp 02/27/18 [Phenergan] Metoclopramide [Reglan] 10 mg PO Q8H PRN #10 tab 04/27/18 Allergies Allergy/AdvReac Type Severity Reaction Status Date / Time Sulfa (Sulfonamide Allergy Dyspnea Verified 04/27/18 08:33 Antibiotics) Review of Systems ROS Statement: Those systems with pertinent positive or pertinent negative responses have been documented in the HPI. ROS Other: All systems not noted in ROS Statement are negative. Past Medical History Past Medical History: Asthma Additional Past Medical History / Comment(s): Mild intermittent asthma, ovarian cysts, History of Any Multi-Drug Resistant Organisms: None Reported Past Surgical History: Adenoidectomy Past Anesthesia/Blood Transfusion Reactions: No Reported Reaction Past Psychological History: Anxiety, Depression Smoking Status: Former smoker Past Alcohol Use History: None Reported Past Drug Use History: Marijuana - Past Family History Father Additional Family Medical History / Comment(s): Father committed suicide at age 25. Mother Additional Family Medical History / Comment(s): Mother is alive at age 47 and did have similar symptoms to her when she was in her 20s. She does have history of anxiety and depression and attempted suicide in the past. Brother(s) Additional Family Medical History / Comment(s): Patient has 1 brother with no major medical problems. Patient does not have any sisters. General Exam Limitations: no limitations General appearance: alert, in no apparent distress, other (This is a well- developed, thin appearing adult female patient in no acute distress. Vital signs upon presentation are temperature 98.2F, pulse 74, respirations 18, blood pressure 128/76, pulse ox 100% on room air.) Eye exam: Present: normal appearance, PERRL, EOMI. Absent: scleral icterus, conjunctival injection, periorbital swelling ENT exam: Present: normal exam, normal oropharynx, mucous membranes moist Respiratory exam: Present: normal lung sounds bilaterally. Absent: respiratory distress, wheezes, rales, rhonchi, stridor Cardiovascular Exam: Present: regular rate, normal rhythm, normal heart sounds. Absent: systolic murmur, diastolic murmur, rubs, gallop, clicks GI/Abdominal exam: Present: soft, tenderness (Midepigastric tenderness), normal bowel sounds. Absent: distended, guarding, rebound, rigid Back exam: Present: normal inspection. Absent: CVA tenderness (R), CVA tenderness (L) Neurological exam: Present: alert, oriented X3, CN II-XII intact Psychiatric exam: Present: normal affect, normal mood Skin exam: Present: warm, dry, intact, normal color. Absent: rash Course Vital Signs 04/27/18 04/27/18 08:30 11:22 Temperature 98.2 F 97.8 F Pulse Rate 74 72 Respiratory 18 18 Rate Blood Pressure 128/76 116/58 O2 Sat by Pulse 100 99 Oximetry Medical Decision Making - Medical Decision Making 28-year-old female patient presents to the emergency department today for evaluation of vomiting and midepigastric discomfort. Physical examination was relatively unremarkable. Abdomen was soft, mild midepigastric tenderness. Labs reviewed and were unremarkable. Patient is not . Upon reevaluation patient is feeling much better. Patient symptoms are consistent with her history of cyclic vomiting syndrome. She is advised to stop smoking marijuana as this could be a cause for her symptoms. She is instructed to follow-up with her primary care physician for recheck in 1-2 days. She is given a prescription for Reglan. Return parameters were discussed in detail. She verbalizes understanding and agrees with this plan. - Lab Data Result diagrams: 04/27/18 09:12 04/27/18 09:12 Lab Results 04/27/18 04/27/18 04/27/18 Range/Units 09:12 09:12 09:12 WBC 10.2 (3.8-10.6) k/uL RBC 4.46 (3.80-5.40) m/uL Hgb 13.0 (11.4-16.0) gm/dL Hct 39.1 (34.0-46.0) % MCV 87.6 (80.0-100.0) fL MCH 29.2 (25.0-35.0) pg MCHC 33.4 (31.0-37.0) g/dL RDW 13.2 (11.5-15.5) % Plt Count 289 (150-450) k/uL Neutrophils % (Manual) 90 % Lymphocytes % (Manual) 7 % Monocytes % (Manual) 3 % Neutrophils # (Manual) 9.18 H (1.3-7.7) k/uL Lymphocytes # (Manual) 0.71 L (1.0-4.8) k/uL Monocytes # (Manual) 0.31 (0-1.0) k/uL Nucleated RBCs 0 (0-0) /100 WBC RBC Morphology Normal Sodium 139 (137-145) mmol/L Potassium 4.1 (3.5-5.1) mmol/L Chloride 106 (98-107) mmol/L Carbon Dioxide 22 (22-30) mmol/L Anion Gap 11 mmol/L BUN 14 (7-17) mg/dL Creatinine 0.61 (0.52-1.04) mg/dL Est GFR (CKD-EPI)AfAm >90 (>60 ml/min/1.73 sqM) Est GFR (CKD-EPI)NonAf >90 (>60 ml/min/1.73 sqM) Glucose 156 H (74-99) mg/dL Calcium 9.7 (8.4-10.2) mg/dL Total Bilirubin 0.7 (0.2-1.3) mg/dL AST 19 (14-36) U/L ALT 27 (9-52) U/L Alkaline Phosphatase 46 (38-126) U/L Total Protein 7.1 (6.3-8.2) g/dL Albumin 4.5 (3.5-5.0) g/dL Amylase 53 (30-110) U/L Lipase 47 (23-300) U/L Urine Color Urine Appearance (Clear) Urine pH (5.0-8.0) Ur Specific [place] (1.001-1.035) Urine Protein (Negative) Urine Glucose (UA) (Negative) Urine Ketones (Negative) Urine Blood (Negative) Urine Nitrite (Negative) Urine Bilirubin (Negative) Urine Urobilinogen (<2.0) mg/dL Ur Leukocyte Esterase (Negative) Urine WBC (0-5) /hpf Ur Squamous Epith Cells (0-4) /hpf Amorphous Sediment (None) /hpf Urine Bacteria (None) /hpf Urine Mucus (None) /hpf Urine HCG, Qual Not Detected (Not Detectd) 04/27/18 Range/Units 09:12 WBC (3.8-10.6) k/uL RBC (3.80-5.40) m/uL Hgb (11.4-16.0) gm/dL Hct (34.0-46.0) % MCV (80.0-100.0) fL MCH (25.0-35.0) pg MCHC (31.0-37.0) g/dL RDW (11.5-15.5) % Plt Count (150-450) k/uL Neutrophils % (Manual) % Lymphocytes % (Manual) % Monocytes % (Manual) % Neutrophils # (Manual) (1.3-7.7) k/uL Lymphocytes # (Manual) (1.0-4.8) k/uL Monocytes # (Manual) (0-1.0) k/uL Nucleated RBCs (0-0) /100 WBC RBC Morphology Sodium (137-145) mmol/L Potassium (3.5-5.1) mmol/L Chloride (98-107) mmol/L Carbon Dioxide (22-30) mmol/L Anion Gap mmol/L BUN (7-17) mg/dL Creatinine (0.52-1.04) mg/dL Est GFR (CKD-EPI)AfAm (>60 ml/min/1.73 sqM) Est GFR (CKD-EPI)NonAf (>60 ml/min/1.73 sqM) Glucose (74-99) mg/dL Calcium (8.4-10.2) mg/dL Total Bilirubin (0.2-1.3) mg/dL AST (14-36) U/L ALT (9-52) U/L Alkaline Phosphatase (38-126) U/L Total Protein (6.3-8.2) g/dL Albumin (3.5-5.0) g/dL Amylase (30-110) U/L Lipase (23-300) U/L Urine Color Yellow Urine Appearance Cloudy H (Clear) Urine pH 6.0 (5.0-8.0) Ur Specific [place] 1.022 (1.001-1.035) Urine Protein 1+ H (Negative) Urine Glucose (UA) Negative (Negative) Urine Ketones 3+ H (Negative) Urine Blood Negative (Negative) Urine Nitrite Negative (Negative) Urine Bilirubin Negative (Negative) Urine Urobilinogen <2.0 (<2.0) mg/dL Ur Leukocyte Esterase Negative (Negative) Urine WBC 3 (0-5) /hpf Ur Squamous Epith Cells 8 H (0-4) /hpf Amorphous Sediment Rare H (None) /hpf Urine Bacteria Rare H (None) /hpf Urine Mucus Moderate H (None) /hpf Urine HCG, Qual (Not Detectd) - Radiology Data Radiology results: report reviewed, image reviewed Two-view x-ray of the abdomen is obtained. Report was reviewed in its entirety. Impression by Dr. Cramer shows no injury acute abdominal abnormality. Disposition Clinical Impression: Cyclic vomiting syndrome Disposition: HOME SELF-CARE Condition: Good Instructions: Acute Nausea and Vomiting (ED) Additional Instructions: Take medications as directed. Follow-up with your primary care physician for recheck in 1-2 days. Return here immediately for any new, worsening, or concerning symptoms. Prescriptions: Metoclopramide [Reglan] 10 mg PO Q8H PRN #10 tab PRN Reason: Vomiting Is patient prescribed a controlled substance at d/c from ED?: No Referrals: Catherine Laboy MD [Primary Care Provider] - 1-2 days Time of Disposition: 11:03
[2018-04-27 09:40] LABS: HCT 39.1 % (34.0-46.0); MCH 29.2 pg (25.0-35.0); MCHC 33.4 g/dL (31.0-37.0); MCV 87.6 fL (80.0-100.0); Platelet Count 289 k/uL (150-450); RBC 4.46 m/uL (3.80-5.40); RDW 13.2 % (11.5-15.5); WBC 10.2 k/uL (3.8-10.6)
[2018-04-27 09:42] LABS: Amorphous Sediment,Urine Rare /hpf; Appearance,Urine Cloudy (Clear); Bacteria,Urine Rare /hpf; Bilirubin,Urine Negative (Negative); Blood,Urine Negative (Negative); Color,Urine Yellow; Glucose,Urine (UA) Negative (Negative); Ketones,Urine 3+ (Negative); Leukocyte Esterase,Urine Negative (Negative); Mucus,Urine Moderate /hpf; Nitrite,Urine Negative (Negative); Protein,Urine 1+ (Negative); Specific Gravity,Urine 1.022 (1.001-1.035); Squamous Epithelial Cell,Urine 8 /hpf (0-4); Urobilinogen,Urine <2.0 mg/dL (<2.0); WBC,Urine 3 /hpf (0-5)
[2018-04-27 09:45] LABS: ALT 27 U/L (9-52); AST 19 U/L (14-36); Albumin 4.5 g/dL (3.5-5.0); Alkaline Phosphatase 46 U/L (38-126); Amylase 53 U/L (30-110); Anion Gap 11 mmol/L; Blood Urea Nitrogen 14 mg/dL (7-17); Calcium 9.7 mg/dL (8.4-10.2); Carbon Dioxide 22 mmol/L (22-30); Chloride 106 mmol/L (98-107); Glucose 156 mg/dL (74-99); Lipase 47 U/L (23-300); Potassium 4.1 mmol/L (3.5-5.1); Sodium 139 mmol/L (137-145); Total Bilirubin 0.7 mg/dL (0.2-1.3); Total Protein 7.1 g/dL (6.3-8.2)
[2018-04-27 10:09] LABS: Lymphocytes # (M) 0.71 k/uL (1.0-4.8); Monocytes # (M) 0.31 k/uL (0-1.0); Neutrophils # (M) 9.18 k/uL (1.3-7.7); Neutrophils % (M) 90 %; Nucleated Red Blood Cells 0 /100 WBC (0-0); Total Cells Counted 100
--- NOTE | 2018-04-27 10:58 | XR ---
EXAMINATION TYPE: XR KUB , 2 VIEWS DATE OF EXAM ORDERED: 04/27/2018 HISTORY: abdominal pain. COMPARISON: Previous study dated 09/22/2017. FINDINGS: The lung bases are clear. Within the abdomen, the abdominal gas pattern is normal. There is no evidence of obstruction or free air. No unusual calcifications are seen. IMPRESSION: NO ACUTE INTRA-ABDOMINAL ABNORMALITY.
[2018-04-27 11:25] VITALS: BP 116/58; PULSE 72; TEMP 97.8
== END 2018-04-27 11:22 | disposition home or self-care (01) ==
LOC: EC 08:29
DX: G43.A0 Cyclical vomiting, in migraine, not intractable (principal); F41.9 Anxiety disorder, unspecified; F32.9 Major depressive disorder, single episode, unspecified; Z32.02 Encounter for pregnancy test, result negative; Z79.899 Other long term (current) drug therapy; Z88.2 Allergy status to sulfonamides; Z87.891 Personal history of nicotine dependence
CPT/HCPCS: 99284; 96374; 96375 ×2; 96361 ×2; 36415; 80053; 82150; 83690; 85025; 81001; 81025; 74018; J2060; J1200; J2765

== ENCOUNTER 2018-04-29 02:47 | Emergency (ER) | payer OTHER ==
[2018-04-29 02:59] VITALS: RESP 18
[2018-04-29] MEDS ORDERED: LORazepam 2 MG/ML INJ IV STA (03:15)
[2018-04-29] MEDS ORDERED: SODIUM CHLORIDE 0.9% 1,000 ML IV STA (03:15)
[2018-04-29] MEDS ORDERED: diphenhydrAMINE 50 MG/ML 1 ML VIAL IVP STA (03:15)
[2018-04-29] MEDS ORDERED: METOCLOPRAMIDE 5 MG/ML 2 ML VIAL IVP STA (03:15)
--- NOTE | 2018-04-29 03:24 | ED ---
Nausea/Vomiting/Diarrhea HPI - General Chief complaint: Nausea/Vomiting/Diarrhea Stated complaint: VOMITING Time Seen by Provider: 04/29/18 03:07 Source: patient Mode of arrival: ambulatory Limitations: no limitations - History of Present Illness Initial comments: 28 year-old female patient reports history of cyclic vomiting syndrome presents to the emergency department today for complaints of upper abdominal pain and vomiting. Patient states that she has been having symptoms for the last several days. States she has attempted taking Reglan at home but is unable to keep down any pills. Patient states she is also unable take her anxiety medications or anxiety is getting worse as well. Patient states she has been chilled. Unable to keep down any food or fluids. States she is having a cramping type pain to her upper abdomen. She denies any radiation of the pain to her back. She denies any constipation but states she has had a couple small episodes of diarrhea today. She denies any hematochezia or melena. Denies any use of alcohol. Does report history of using marijuana but hasn't used over the last couple of days. Denies any chance of . Patient denies any recent rash, shortness breath, chest pain, numbness, tingling, dizziness, weakness, hematuria, dysuria, urinary urgency, urinary frequency, headache, visual changes, or any other complaints. - Related Data Previous Rx's Medication Instructions Recorded Metoclopramide [Reglan] 10 mg PO Q8H PRN #10 tab 04/27/18 Allergies Allergy/AdvReac Type Severity Reaction Status Date / Time Sulfa (Sulfonamide Allergy Dyspnea Verified 04/29/18 03:07 Antibiotics) Review of Systems ROS Statement: Those systems with pertinent positive or pertinent negative responses have been documented in the HPI. ROS Other: All systems not noted in ROS Statement are negative. Past Medical History Past Medical History: Asthma Additional Past Medical History / Comment(s): Mild intermittent asthma, ovarian cysts, History of Any Multi-Drug Resistant Organisms: None Reported Past Surgical History: Adenoidectomy Past Anesthesia/Blood Transfusion Reactions: No Reported Reaction Past Psychological History: Anxiety, Depression Smoking Status: Former smoker Past Alcohol Use History: None Reported Past Drug Use History: Marijuana - Past Family History Father Additional Family Medical History / Comment(s): Father committed suicide at age 25. Mother Additional Family Medical History / Comment(s): Mother is alive at age 47 and did have similar symptoms to her when she was in her 20s. She does have history of anxiety and depression and attempted suicide in the past. Brother(s) Additional Family Medical History / Comment(s): Patient has 1 brother with no major medical problems. Patient does not have any sisters. General Exam Limitations: no limitations General appearance: alert, in no apparent distress, anxious, other (This is a well-developed, well-nourished adult female patient who appears quite anxious. Vital signs upon presentation are temperature 98.0F, pulse 83, respirations 18 , blood pressure 161/68, pulse ox 98% on room air.) Eye exam: Present: normal appearance, PERRL, EOMI. Absent: scleral icterus, conjunctival injection, periorbital swelling ENT exam: Present: normal exam, normal oropharynx, mucous membranes moist Respiratory exam: Present: normal lung sounds bilaterally. Absent: respiratory distress, wheezes, rales, rhonchi, stridor Cardiovascular Exam: Present: regular rate, normal rhythm, normal heart sounds. Absent: systolic murmur, diastolic murmur, rubs, gallop, clicks GI/Abdominal exam: Present: soft, tenderness (Midepigastric tenderness), normal bowel sounds. Absent: distended, guarding, rebound, rigid Neurological exam: Present: alert, oriented X3, CN II-XII intact Psychiatric exam: Present: normal affect, normal mood Skin exam: Present: warm, dry, intact, normal color. Absent: rash Course Vital Signs 04/29/18 04/29/18 02:55 06:04 Temperature 98.0 F 98.2 F Pulse Rate 83 62 Respiratory 18 18 Rate Blood Pressure 161/68 135/75 O2 Sat by Pulse 98 100 Oximetry Medical Decision Making - Medical Decision Making 28-year-old female patient presents to the emergency department today for evaluation of vomiting and upper abdominal pain. Patient reports history of cyclic vomiting syndrome states that her symptoms are consistent with her previous flareups. Patient was given IV fluids and medications here in the department and help her symptoms. Patient is feeling better upon reevaluation however reports continued nausea. She'll be given additional dose of Zofran. He did offer to monitor but she requests to be discharged home as she can rest. She is instructed to follow-up with her doctor as well as gastroenterology for further evaluation of her symptoms. Return parameters discussed in detail. She verbalizes understanding and agrees this plan. - Lab Data Result diagrams: 04/29/18 04:00 04/29/18 04:00 Lab Results 04/29/18 04/29/18 04/29/18 Range/Units 04:00 04:00 04:00 WBC 12.0 H (3.8-10.6) k/uL RBC 4.87 (3.80-5.40) m/uL Hgb 14.1 (11.4-16.0) gm/dL Hct 42.9 (34.0-46.0) % MCV 88.2 (80.0-100.0) fL MCH 29.1 (25.0-35.0) pg MCHC 32.9 (31.0-37.0) g/dL RDW 13.1 (11.5-15.5) % Plt Count 281 (150-450) k/uL Neutrophils % (Manual) 67 % Lymphocytes % (Manual) 27 % Monocytes % (Manual) 6 % Neutrophils # (Manual) 8.04 H (1.3-7.7) k/uL Lymphocytes # (Manual) 3.24 (1.0-4.8) k/uL Monocytes # (Manual) 0.72 (0-1.0) k/uL Nucleated RBCs 0 (0-0) /100 WBC Manual Slide Review Performed Sodium 138 (137-145) mmol/L Potassium 3.5 (3.5-5.1) mmol/L Chloride 105 (98-107) mmol/L Carbon Dioxide 24 (22-30) mmol/L Anion Gap 9 mmol/L BUN 16 (7-17) mg/dL Creatinine 0.70 (0.52-1.04) mg/dL Est GFR (CKD-EPI)AfAm >90 (>60 ml/min/1.73 sqM) Est GFR (CKD-EPI)NonAf >90 (>60 ml/min/1.73 sqM) Glucose 96 (74-99) mg/dL Calcium 9.1 (8.4-10.2) mg/dL Total Bilirubin 0.7 (0.2-1.3) mg/dL AST 18 (14-36) U/L ALT 31 (9-52) U/L Alkaline Phosphatase 40 (38-126) U/L Total Protein 6.3 (6.3-8.2) g/dL Albumin 3.9 (3.5-5.0) g/dL Amylase 54 (30-110) U/L Lipase 68 (23-300) U/L Urine Color Yellow Urine Appearance Cloudy H (Clear) Urine pH 6.5 (5.0-8.0) Ur Specific [place] 1.022 (1.001-1.035) Urine Protein 1+ H (Negative) Urine Glucose (UA) Negative (Negative) Urine Ketones 2+ H (Negative) Urine Blood Negative (Negative) Urine Nitrite Negative (Negative) Urine Bilirubin Negative (Negative) Urine Urobilinogen 3.0 (<2.0) mg/dL Ur Leukocyte Esterase Negative (Negative) Urine RBC <1 (0-5) /hpf Urine WBC 2 (0-5) /hpf Ur Squamous Epith Cells 8 H (0-4) /hpf Urine Bacteria Rare H (None) /hpf Hyaline Casts 3 H (0-2) /lpf Urine Mucus Many H (None) /hpf Urine HCG, Qual (Not Detectd) 04/29/18 Range/Units 04:00 WBC (3.8-10.6) k/uL RBC (3.80-5.40) m/uL Hgb (11.4-16.0) gm/dL Hct (34.0-46.0) % MCV (80.0-100.0) fL MCH (25.0-35.0) pg MCHC (31.0-37.0) g/dL RDW (11.5-15.5) % Plt Count (150-450) k/uL Neutrophils % (Manual) % Lymphocytes % (Manual) % Monocytes % (Manual) % Neutrophils # (Manual) (1.3-7.7) k/uL Lymphocytes # (Manual) (1.0-4.8) k/uL Monocytes # (Manual) (0-1.0) k/uL Nucleated RBCs (0-0) /100 WBC Manual Slide Review Sodium (137-145) mmol/L Potassium (3.5-5.1) mmol/L Chloride (98-107) mmol/L Carbon Dioxide (22-30) mmol/L Anion Gap mmol/L BUN (7-17) mg/dL Creatinine (0.52-1.04) mg/dL Est GFR (CKD-EPI)AfAm (>60 ml/min/1.73 sqM) Est GFR (CKD-EPI)NonAf (>60 ml/min/1.73 sqM) Glucose (74-99) mg/dL Calcium (8.4-10.2) mg/dL Total Bilirubin (0.2-1.3) mg/dL AST (14-36) U/L ALT (9-52) U/L Alkaline Phosphatase (38-126) U/L Total Protein (6.3-8.2) g/dL Albumin (3.5-5.0) g/dL Amylase (30-110) U/L Lipase (23-300) U/L Urine Color Urine Appearance (Clear) Urine pH (5.0-8.0) Ur Specific [place] (1.001-1.035) Urine Protein (Negative) Urine Glucose (UA) (Negative) Urine Ketones (Negative) Urine Blood (Negative) Urine Nitrite (Negative) Urine Bilirubin (Negative) Urine Urobilinogen (<2.0) mg/dL Ur Leukocyte Esterase (Negative) Urine RBC (0-5) /hpf Urine WBC (0-5) /hpf Ur Squamous Epith Cells (0-4) /hpf Urine Bacteria (None) /hpf Hyaline Casts (0-2) /lpf Urine Mucus (None) /hpf Urine HCG, Qual Not Detected (Not Detectd) Disposition Clinical Impression: Cyclic vomiting syndrome, Abdominal pain Disposition: HOME SELF-CARE Condition: Good Instructions: Acute Nausea and Vomiting (ED) Additional Instructions: Start with clear liquid diet and advance as tolerated. Follow-up with your primary care physician for recheck in 1-2 days. Take home medications for nausea and anxiety. Return here immediately for any new, worsening, or concerning symptoms. Is patient prescribed a controlled substance at d/c from ED?: No Referrals: Catherine Laboy MD [Primary Care Provider] - 1-2 days Zuleyma Vinson MD [STAFF PHYSICIAN] - 1-2 days
[2018-04-29 04:14] LABS: HCT 42.9 % (34.0-46.0); HGB 14.1 gm/dL (11.4-16.0); MCH 29.1 pg (25.0-35.0); MCHC 32.9 g/dL (31.0-37.0); MCV 88.2 fL (80.0-100.0); Mean Platelet Volume 7.1; Platelet Count 281 k/uL (150-450); RBC 4.87 m/uL (3.80-5.40); RDW 13.1 % (11.5-15.5)
[2018-04-29 04:19] LABS: Appearance,Urine Cloudy (Clear); Bacteria,Urine Rare /hpf; Bilirubin,Urine Negative (Negative); Blood,Urine Negative (Negative); Color,Urine Yellow; Glucose,Urine (UA) Negative (Negative); Hyaline Casts,Urine 3 /lpf (0-2); Ketones,Urine 2+ (Negative); Leukocyte Esterase,Urine Negative (Negative); Mucus,Urine Many /hpf; Nitrite,Urine Negative (Negative); PH, Urine 6.5 (5.0-8.0); Protein,Urine 1+ (Negative); RBC,Urine <1 /hpf (0-5); Specific Gravity,Urine 1.022 (1.001-1.035); Squamous Epithelial Cell,Urine 8 /hpf (0-4); WBC,Urine 2 /hpf (0-5)
--- NOTE | 2018-04-29 04:23 | XR ---
EXAMINATION TYPE: XR KUB DATE OF EXAM: 04/29/2018 COMPARISON: 04/27/2018 HISTORY: Nausea and vomiting TECHNIQUE: 2 views FINDINGS: Bowel gas pattern is normal. There is no sign of intestinal obstruction or pneumoperitoneum . Fecal pattern is normal. Lung bases are clear. There are no pathologic calcifications. IMPRESSION: Nonacute abdomen. No change.
[2018-04-29 04:32] LABS: ALT 31 U/L (9-52); AST 18 U/L (14-36); Albumin 3.9 g/dL (3.5-5.0); Alkaline Phosphatase 40 U/L (38-126); Amylase 54 U/L (30-110); Anion Gap 9 mmol/L; Blood Urea Nitrogen 16 mg/dL (7-17); Calcium 9.1 mg/dL (8.4-10.2); Carbon Dioxide 24 mmol/L (22-30); Chloride 105 mmol/L (98-107); Glucose 96 mg/dL (74-99); Lipase 68 U/L (23-300); Potassium 3.5 mmol/L (3.5-5.1); Sodium 138 mmol/L (137-145); Total Bilirubin 0.7 mg/dL (0.2-1.3); Total Protein 6.3 g/dL (6.3-8.2)
[2018-04-29] MEDS ORDERED: ONDANSETRON 4 MG/2 ML VIAL IVP STA (04:47)
[2018-04-29 04:48] LABS: Lymphocytes # (M) 3.24 k/uL (1.0-4.8); Monocytes # (M) 0.72 k/uL (0-1.0); Neutrophils # (M) 8.04 k/uL (1.3-7.7); Neutrophils % (M) 67 %; Nucleated Red Blood Cells 0 /100 WBC (0-0); Total Cells Counted 100
[2018-04-29] MEDS ORDERED: SODIUM CHLORIDE 0.9% 500 ML IV ONE (04:52)
[2018-04-29] MEDS ORDERED: FAMOTIDINE 20 MG/2 ML VIAL IV STA (04:57)
[2018-04-29 06:06] VITALS: BP 135/75; PULSE 62; TEMP 98.2
== END 2018-04-29 06:05 | disposition home or self-care (01) ==
LOC: EC 02:47
DX: K31.89 Other diseases of stomach and duodenum (principal); R11.2 Nausea with vomiting, unspecified; F41.9 Anxiety disorder, unspecified; Z87.891 Personal history of nicotine dependence; Z88.2 Allergy status to sulfonamides; Z53.8 Procedure and treatment not carried out for other reasons; Z81.8 Family history of other mental and behavioral disorders
CPT/HCPCS: 36415; 80053; 82150; 83690; 85025; 81001; 81025; 74018; 99284; 96374; 96375 ×4; 96361; J2060; J1200; J2765; J2405

== ENCOUNTER 2018-10-27 08:53 | Emergency (ER) | payer OTHER ==
[2018-10-27 08:58] VITALS: RESP 18; TEMP 98
--- NOTE | 2018-10-27 09:27 | ED ---
Back Pain HPI - General Chief Complaint: Back Pain/Injury Stated Complaint: low back pain Time Seen by Provider: 10/27/18 09:00 Source: patient, RN notes reviewed, old records reviewed Limitations: no limitations - History of Present Illness Initial Comments: This is a 28-year-old female the ER for evaluation of atraumatic back pain. Woke up with pain this morning. Patient has been persistent, worse with movement. No modifying factors for pain, patient denies IV drug abuse or fever. No neurological symptoms no loss of bowel or bladder MD Complaint: back pain -: hour(s) Similar Symptoms Previously: Yes Place: home Radiation: none Severity: mild, moderate Severity scale (1-10): 5 Quality: burning, aching Consistency: constant Improves With: immobilization Worsens With: movement Associated Symptoms: denies other symptoms - Related Data Home Medications Medication Instructions Recorded Confirmed Mirtazapine [Remeron] 15 mg PO HS 10/27/18 10/27/18 hydrOXYzine HCL 10 mg PO QID PRN 10/27/18 10/27/18 Previous Rx's Medication Instructions Recorded Naproxen [Naprosyn] 500 mg PO Q12HR PRN #30 tab 10/27/18 Allergies Allergy/AdvReac Type Severity Reaction Status Date / Time Sulfa (Sulfonamide Allergy Dyspnea Verified 10/27/18 09:26 Antibiotics) Review of Systems ROS Statement: Those systems with pertinent positive or pertinent negative responses have been documented in the HPI. ROS Other: All systems not noted in ROS Statement are negative. Past Medical History Past Medical History: Asthma, Thyroid Disorder Additional Past Medical History / Comment(s): Mild intermittent asthma, ovarian cysts, cyclic vomiting, Scoliosis History of Any Multi-Drug Resistant Organisms: None Reported Past Surgical History: Adenoidectomy Additional Past Surgical History / Comment(s): Thyroidectomy Past Anesthesia/Blood Transfusion Reactions: No Reported Reaction Past Psychological History: Anxiety, Depression Smoking Status: Former smoker Past Alcohol Use History: None Reported Past Drug Use History: Marijuana - Past Family History Father Additional Family Medical History / Comment(s): Father committed suicide at age 25. Mother Additional Family Medical History / Comment(s): Mother is alive at age 47 and did have similar symptoms to her when she was in her 20s. She does have history of anxiety and depression and attempted suicide in the past. Brother(s) Additional Family Medical History / Comment(s): Patient has 1 brother with no major medical problems. Patient does not have any sisters. General Exam Limitations: no limitations General appearance: alert, in no apparent distress Head exam: Present: atraumatic, normocephalic, normal inspection Eye exam: Present: normal appearance, PERRL, EOMI. Absent: scleral icterus, conjunctival injection, periorbital swelling ENT exam: Present: normal exam, mucous membranes moist Neck exam: Present: normal inspection. Absent: tenderness, meningismus, lymphadenopathy Respiratory exam: Present: normal lung sounds bilaterally. Absent: respiratory distress, wheezes, rales, rhonchi, stridor Cardiovascular Exam: Present: regular rate, normal rhythm, normal heart sounds. Absent: systolic murmur, diastolic murmur, rubs, gallop, clicks GI/Abdominal exam: Present: soft, normal bowel sounds. Absent: distended, tenderness, guarding, rebound, rigid Extremities exam: Present: normal inspection, full ROM, normal capillary refill. Absent: tenderness, pedal edema, joint swelling, calf tenderness Back exam: Present: normal inspection Neurological exam: Present: alert, oriented X3, CN II-XII intact Psychiatric exam: Present: normal affect, normal mood Skin exam: Present: warm, dry, intact, normal color. Absent: rash Course Vital Signs 10/27/18 10/27/18 08:54 10:53 Temperature 98 F Pulse Rate 103 H 70 Respiratory 18 18 Rate Blood Pressure 95/56 92/56 O2 Sat by Pulse 98 100 Oximetry Medical Decision Making - Medical Decision Making 28 female the ER for evaluation of back pain. X-rays negative here in the ER, patient is walking without difficulty states her back pain is resolved will be discharged home - Lab Data Lab Results 10/27/18 10/27/18 Range/Units 09:30 09:30 Urine Color Yellow Urine Appearance Cloudy H (Clear) Urine pH 8.0 (5.0-8.0) Ur Specific [place] 1.020 (1.001-1.035) Urine Protein Trace H (Negative) Urine Glucose (UA) Negative (Negative) Urine Ketones Negative (Negative) Urine Blood Negative (Negative) Urine Nitrite Negative (Negative) Urine Bilirubin Negative (Negative) Urine Urobilinogen 2.0 (<2.0) mg/dL Ur Leukocyte Esterase Negative (Negative) Urine RBC <1 (0-5) /hpf Urine WBC 1 (0-5) /hpf Ur Squamous Epith Cells 6 H (0-4) /hpf Urine Bacteria Rare H (None) /hpf Urine Mucus Few H (None) /hpf Urine HCG, Qual Not Detected (Not Detectd) - Radiology Data Radiology results: report reviewed (X-ray lumbosacral spine negative for acute disease), image reviewed Disposition Clinical Impression: Mechanical back pain, Strain of lumbar region Disposition: HOME SELF-CARE Condition: Good Instructions (If sedation given, give patient instructions): Acute Low Back Pain (ED), Chronic Back Pain (ED) Prescriptions: Naproxen [Naprosyn] 500 mg PO Q12HR PRN #30 tab PRN Reason: Pain Is patient prescribed a controlled substance at d/c from ED?: No Referrals: Catherine Laboy MD [Primary Care Provider] - 1-2 days
[2018-10-27 09:50] LABS: Appearance,Urine Cloudy (Clear); Bacteria,Urine Rare /hpf; Bilirubin,Urine Negative (Negative); Blood,Urine Negative (Negative); Color,Urine Yellow; Glucose,Urine (UA) Negative (Negative); Ketones,Urine Negative (Negative); Leukocyte Esterase,Urine Negative (Negative); Mucus,Urine Few /hpf; Nitrite,Urine Negative (Negative); Protein,Urine Trace (Negative); RBC,Urine <1 /hpf (0-5); Squamous Epithelial Cell,Urine 6 /hpf (0-4); WBC,Urine 1 /hpf (0-5)
[2018-10-27] MEDS ORDERED: KETOROLAC 60 MG/2 ML VIAL IM STA (09:54)
[2018-10-27] MEDS ORDERED: ACETAMINOPHEN TAB 500 MG TAB PO STA (09:54)
--- NOTE | 2018-10-27 10:38 | XR ---
EXAMINATION TYPE: XR lumbosacral spine min 4V DATE OF EXAM: 10/27/2018 COMPARISON: NONE HISTORY: 28-year-old female low back pain TECHNIQUE: 5 views FINDINGS: Levoconvex curvature of the lumbar spine and possibly some underlying rightward truncal shift. Facet arthropathy lower lumbar spine. 5 lumbar type vertebral bodies. On these images, unable to exclude a left L5 pars defect on the oblique view. Finding may be projectional. Alignment is maintained. Verteb ral body heights are preserved. Mild degenerative disc interspace narrowing at L5-S1. IMPRESSION: 1. Correlate for underlying S-shaped scoliosis of the thoracolumbar spine. 2. Facet arthropathy lower lumbar spine. Mild degenerative disc disease at L5-S1. 3. Unable to exclude a left L5 pars defect on the oblique view. The finding may be projectional artif act.
[2018-10-27 10:55] VITALS: BP 92/56; PULSE 70
== END 2018-10-27 11:32 | disposition home or self-care (01) ==
LOC: EC 08:53
DX: S39.012A Strain of muscle, fascia and tendon of lower back, initial encounter (principal); F32.9 Major depressive disorder, single episode, unspecified; F41.9 Anxiety disorder, unspecified; Z87.891 Personal history of nicotine dependence; Z79.899 Other long term (current) drug therapy; Z88.2 Allergy status to sulfonamides
CPT/HCPCS: 81001; 81025; 87086; 72110; 99284; 96372; J1885

== ENCOUNTER → 2019-03-23 | Outpatient (CLI) | payer SELFPAY ==
--- NOTE | 2019-03-23 15:44 | XR ---
EXAMINATION TYPE: XR chest 2V DATE OF EXAM: 03/23/2019 COMPARISON: 09/22/1979 TECHNIQUE: PA and lateral views submitted. HISTORY: Shortness of breath and cough FINDINGS: The lungs are clear and there is no pneumothorax, pleural effusion, or focal pneumonia. Questionabl e tiny granuloma in the lateral view overlying the mid upper vertebral body. Could represent vessel e nd on. IMPRESSION: 1. No acute process.
== END | disposition home or self-care (01) ==
LOC: RADXRMAIN 15:29
PROVIDERS: ATTEND Midwife
DX: R05 Cough (principal)
CPT/HCPCS: 71046

== ENCOUNTER 2019-06-16 11:46 | Emergency (ER) | payer OTHER ==
[2019-06-16 12:06] VITALS: TEMP 98.2
--- NOTE | 2019-06-16 12:28 | ED ---
General Adult HPI - General Chief complaint: Arrhythmia/Palpitations Stated complaint: Sob/irregular heartbeat Time Seen by Provider: 06/16/19 12:07 Source: patient, RN notes reviewed Mode of arrival: ambulatory Limitations: no limitations - History of Present Illness Initial comments: 29-year-old female with a fast/medical history of asthma, anxiety, cyclic vomiting syndrome presents to the emergency department for a chief complaint of palpitations. Patient states that she has been feeling palpitations in her chest for about 2 weeks. States that she has also had mild shortness of breath when climbing stairs for 2 weeks. Patient denies any chest pain. Denies taking any OCPs. Denies any calf swelling or pain. Patient states she usually drinks 8 shots of espresso daily however recently reduced this to 4 shots of espresso as she thought this could be contributing. Patient also has a daily marijuana smoker. States she also has extreme anxiety that could be contributing. Patient has no other complaints at this time including shortness of breath, chest pain, abdominal pain, nausea or vomiting, headache, or visual changes. - Related Data Home Medications Medication Instructions Recorded Confirmed No Known Home Medications 06/16/19 06/16/19 Allergies Allergy/AdvReac Type Severity Reaction Status Date / Time Sulfa (Sulfonamide Allergy Dyspnea Verified 06/16/19 13:04 Antibiotics) Review of Systems ROS Statement: Those systems with pertinent positive or pertinent negative responses have been documented in the HPI. ROS Other: All systems not noted in ROS Statement are negative. Past Medical History Past Medical History: Asthma Additional Past Medical History / Comment(s): Mild intermittent asthma, ovarian cysts, cyclic vomiting, Scoliosis History of Any Multi-Drug Resistant Organisms: None Reported Past Surgical History: Adenoidectomy Additional Past Surgical History / Comment(s): Thyroidectomy Past Anesthesia/Blood Transfusion Reactions: No Reported Reaction Past Psychological History: Anxiety, Depression Smoking Status: Former smoker Past Alcohol Use History: Occasional Past Drug Use History: Marijuana - Past Family History Father Additional Family Medical History / Comment(s): Father committed suicide at age 25. Mother Additional Family Medical History / Comment(s): Mother is alive at age 47 and did have similar symptoms to her when she was in her 20s. She does have history of anxiety and depression and attempted suicide in the past. Brother(s) Additional Family Medical History / Comment(s): Patient has 1 brother with no major medical problems. Patient does not have any sisters. General Exam Limitations: no limitations General appearance: alert, in no apparent distress Head exam: Present: atraumatic, normocephalic, normal inspection Eye exam: Present: normal appearance, PERRL, EOMI. Absent: scleral icterus, conjunctival injection, periorbital swelling ENT exam: Present: normal exam, mucous membranes moist Neck exam: Present: normal inspection, full ROM. Absent: tenderness, meningismus, lymphadenopathy Respiratory exam: Present: normal lung sounds bilaterally. Absent: respiratory distress, wheezes, rales, rhonchi, stridor Cardiovascular Exam: Present: regular rate, normal rhythm, normal heart sounds. Absent: systolic murmur, diastolic murmur, rubs, gallop, clicks GI/Abdominal exam: Present: soft, normal bowel sounds. Absent: distended, tenderness, guarding, rebound, rigid Neurological exam: Present: alert Psychiatric exam: Present: normal affect, normal mood Course Vital Signs 06/16/19 06/16/19 06/16/19 12:03 12:34 13:05 Temperature 98.2 F Pulse Rate 93 80 Pulse Rate [ 84 Corporate Law Assistant ] Respiratory 18 16 Rate Blood Pressure 119/86 117/81 O2 Sat by Pulse 99 98 Oximetry 06/16/19 14:00 Temperature Pulse Rate 80 Pulse Rate [ Corporate Law Assistant ] Respiratory 16 Rate Blood Pressure 117/81 O2 Sat by Pulse 98 Oximetry EKG Findings - EKG Comments: EKG Findings:: Normal sinus rhythm, ventricular rate 71, FL interval 138, QTC 395 Medical Decision Making - Medical Decision Making HPI and physical exam as documented. Patient is normal sinus rhythm with a ventricular rate of 71. No respiratory distress. Vitals are all stable. Patient is satting between 98 and 99%. PERC negative. Chest x-ray shows no acute cardiopulmonary process. At this time I do not see an emergent cause or palpitations. Patient is noted to be drinking 4-8 cigarettes per day and smoking marijuana. Discussed that these may play a factor in this as well as her anxiety. Discussed that she should follow up with primary care for possible cardiology referral for possible Holter monitor if her primary care thinks that is necessary. She will return here if she has any worsening symptoms. Patient does not have a thyroid disorder although this is noted in her history. She denies this. - Lab Data Lab Results 06/16/19 Range/Units 12:35 Urine HCG, Qual Not Detected (Not Detectd) Disposition Clinical Impression: Palpitations Disposition: HOME SELF-CARE Condition: Good Instructions (If sedation given, give patient instructions): Heart Palpitations (ED) Additional Instructions: Please follow up with primary care in 1-2 days. Return here to the emergency department if you have any worsening symptoms. Is patient prescribed a controlled substance at d/c from ED?: No Referrals: Catherine Laboy MD [Primary Care Provider] - 1-2 days Time of Disposition: 14:15
--- NOTE | 2019-06-16 13:41 | XR ---
EXAMINATION TYPE: XR chest 2V DATE OF EXAM: 06/16/2019 COMPARISON: 03/23/2019 HISTORY: Palpitations and shortness of breath TECHNIQUE: Frontal and lateral views of the chest are obtained. FINDINGS: There is no focal air space opacity, pleural effusion, or pneumothorax seen. The cardiac silhouette size is within normal limits. The osseous structures are intact. IMPRESSION: No acute cardiopulmonary process.
[2019-06-16 14:10] VITALS: PULSE 80; RESP 16
[2019-06-16 14:28] VITALS: BP 117/71
== END 2019-06-16 14:24 | disposition home or self-care (01) ==
LOC: EC 11:46
DX: R00.2 Palpitations (principal); F41.9 Anxiety disorder, unspecified; F17.210 Nicotine dependence, cigarettes, uncomplicated; F12.20 Cannabis dependence, uncomplicated; Z88.2 Allergy status to sulfonamides; Z81.8 Family history of other mental and behavioral disorders
CPT/HCPCS: 71046; 81025; 93005; 99285

== ENCOUNTER → 2019-07-22 | Outpatient (CLI) | payer OTHER ==
--- NOTE | 2019-07-22 14:55 | US ---
EXAMINATION TYPE: US transvaginal DATE OF EXAM: 07/22/2019 COMPARISON: US 2017 CLINICAL HISTORY: Pelvic Pain R10.2. Right pelvic pain 1 week ago following intercourse, 3, para 1, 2, history of ovarian cysts, history of irregular cycles. TECHNIQUE: Transvaginal exam only per ordering physician. Date of LMP: 06/22/2019 EXAM MEASUREMENTS: Uterus: 7.5 x 3.5 x 4.4 cm Endometrial Stripe: 0.4 cm Right Ovary: 3.0 x 2.2 x 2.5 cm Left Ovary: 3.1 x 1.9 x 1.6 cm 1. Uterus: anteverted, mildly heterogeneous, multiple nabothian cysts 2. Endometrium: measures thin for patient's LMP 3. Right Ovary: multiple follicles 4. Left Ovary: multiple follicles Spectral, color and waveform doppler imaging shows good arterial and venous flow within the ovaries ; there is no evidence for ovarian torsion. 5. Bilateral Adnexa: wnl 6. Posterior cul-de-sac: wnl IMPRESSION: Physiologic follicular changes of the ovaries. Unremarkable pelvic ultrasound with no end ometrial thickening.
== END | disposition home or self-care (01) ==
LOC: RADUSWWP 13:51
PROVIDERS: ATTEND Family Medicine
DX: R10.2 Pelvic and perineal pain (principal)
CPT/HCPCS: 76830; 93975

== ENCOUNTER 2019-10-21 12:25 | Emergency (ER) | payer OTHER ==
[2019-10-21 12:37] VITALS: BP 104/66; PULSE 79; RESP 20; TEMP 98.3
--- NOTE | 2019-10-21 14:14 | XR ---
EXAMINATION TYPE: XR shoulder complete LT DATE OF EXAM: 10/21/2019 CLINICAL HISTORY: Left shoulder pain after injury TECHNIQUE: Three views of the left shoulder are obtained. COMPARISON: None. FINDINGS: There is no acute fracture/dislocation evident in the left shoulder. The acromioclavicula r and glenohumeral joint spaces appear within normal limits. The visualized ribs are intact and unre markable. IMPRESSION: There is no acute fracture or dislocation in the left shoulder.
--- NOTE | 2019-10-21 14:19 | ED ---
Extremity Problem HPI - General Chief complaint: Extremity Problem,Nontraumatic Stated complaint: lt shoulder injury Time Seen by Provider: 10/21/19 13:11 Source: patient, RN notes reviewed Mode of arrival: ambulatory Limitations: no limitations - History of Present Illness Initial comments: 29-year-old female presents emergency department tingling left shoulder pain. Patient states she was trying to change a light bulb and felt something pop in the top of her shoulder. She states that it's closer to her neck. Patient denies any pain with range of motion or neck no headache no dizziness no paresthesias no weakness. - Related Data Previous Rx's Medication Instructions Recorded Ibuprofen [Motrin] 600 mg PO Q8HR PRN #30 tab 10/21/19 Allergies Allergy/AdvReac Type Severity Reaction Status Date / Time Sulfa (Sulfonamide Allergy Dyspnea Verified 06/16/19 13:04 Antibiotics) Review of Systems ROS Statement: Those systems with pertinent positive or pertinent negative responses have been documented in the HPI. ROS Other: All systems not noted in ROS Statement are negative. Past Medical History Past Medical History: Asthma Additional Past Medical History / Comment(s): Mild intermittent asthma, ovarian cysts, cyclic vomiting, Scoliosis History of Any Multi-Drug Resistant Organisms: None Reported Past Surgical History: Adenoidectomy Additional Past Surgical History / Comment(s): Thyroidectomy Past Anesthesia/Blood Transfusion Reactions: No Reported Reaction Past Psychological History: Anxiety, Depression Smoking Status: Former smoker Past Alcohol Use History: Occasional Past Drug Use History: Marijuana - Past Family History Father Additional Family Medical History / Comment(s): Father committed suicide at age 25. Mother Additional Family Medical History / Comment(s): Mother is alive at age 47 and did have similar symptoms to her when she was in her 20s. She does have history of anxiety and depression and attempted suicide in the past. Brother(s) Additional Family Medical History / Comment(s): Patient has 1 brother with no major medical problems. Patient does not have any sisters. General Exam Limitations: no limitations General appearance: alert, in no apparent distress Head exam: Present: atraumatic, normocephalic, normal inspection Neck exam: Present: normal inspection, tenderness (Tenderness over the left trapezius), full ROM. Absent: meningismus, lymphadenopathy Respiratory exam: Present: normal lung sounds bilaterally. Absent: respiratory distress, wheezes, rales, rhonchi, stridor Cardiovascular Exam: Present: regular rate, normal rhythm, normal heart sounds. Absent: systolic murmur, diastolic murmur, rubs, gallop, clicks Extremities exam: Present: other (Minimal Range of motion left shoulder, neurovascular intact full strength) Neurological exam: Present: alert, oriented X3, reflexes normal. Absent: motor sensory deficit Course Vital Signs 10/21/19 12:34 Temperature 98.3 F Pulse Rate 79 Respiratory 20 Rate Blood Pressure 104/66 O2 Sat by Pulse 97 Oximetry Medical Decision Making - Medical Decision Making X-rays are negative for acute findings. Patient symptoms consistent with a left shoulder strain. Patient will start on ibuprofen, Tylenol ice and heat. Return parameters were discussed. Disposition Clinical Impression: Left shoulder strain Disposition: HOME SELF-CARE Condition: Stable Instructions (If sedation given, give patient instructions): Shoulder Sprain (ED) Additional Instructions: Please return to the Emergency Department if symptoms worsen or any other c oncerns. Prescriptions: Ibuprofen [Motrin] 600 mg PO Q8HR PRN #30 tab PRN Reason: Pain Is patient prescribed a controlled substance at d/c from ED?: No Referrals: Sukumar Giang MD [Primary Care Provider] - 1-2 days Time of Disposition: 14:19
== END 2019-10-21 14:28 | disposition home or self-care (01) ==
LOC: EC 12:25
DX: S46.912A Strain of unspecified muscle, fascia and tendon at shoulder and upper arm level, left arm, initial encounter (principal); Z87.891 Personal history of nicotine dependence; Z88.2 Allergy status to sulfonamides; X50.9XXA Other and unspecified overexertion or strenuous movements or postures, initial encounter; Y93.89 Activity, other specified
CPT/HCPCS: 99283

== ENCOUNTER 2021-01-31 11:50 | Emergency (ER) | payer OTHER ==
[2021-01-31 12:05] VITALS: BP 104/72; PULSE 102; RESP 18; TEMP 97.9
[2021-01-31 13:06] LABS: ALT 9 U/L (4-34); AST 18 U/L (14-36); African American GFR (CKD) >90 (>60 ml/min/1.73 sqM); Alkaline Phosphatase 37 U/L (38-126); Anion Gap 6 mmol/L; Blood Urea Nitrogen 14 mg/dL (7-17); Calcium 9.3 mg/dL (8.4-10.2); Carbon Dioxide 28 mmol/L (22-30); Chloride 101 mmol/L (98-107); Glucose 89 mg/dL (74-99); Non-African American GFR(CKD) >90 (>60 ml/min/1.73 sqM); Potassium 4.5 mmol/L (3.5-5.1); Sodium 135 mmol/L (137-145); Total Bilirubin 0.2 mg/dL (0.2-1.3); Total Protein 6.5 g/dL (6.3-8.2)
[2021-01-31 13:09] LABS: INR 0.9 (<1.2); Partial Thromboplastin Time 23.4 sec (22.0-30.0)
[2021-01-31 13:21] LABS: HCT 40.2 % (34.0-46.0); HGB 13.1 gm/dL (11.4-16.0); MCH 30.5 pg (25.0-35.0); MCHC 32.6 g/dL (31.0-37.0); MCV 93.7 fL (80.0-100.0); Mean Platelet Volume 6.8; Platelet Count 245 k/uL (150-450); RBC 4.29 m/uL (3.80-5.40); RDW 13.2 % (11.5-15.5); WBC 6.9 k/uL (3.8-10.6)
[2021-01-31 13:22] LABS: HCG,Quantitative Serum 427.9 mIU/mL
[2021-01-31 13:44] LABS: Eosinophils # (M) 0.48 k/uL (0-0.7); Lymphocytes # (M) 2.28 k/uL (1.0-4.8); Monocytes # (M) 0.48 k/uL (0-1.0); Neutrophils # (M) 3.66 k/uL (1.3-7.7); Neutrophils % (M) 53 %; Nucleated Red Blood Cells 0 /100 WBC (0-0); Total Cells Counted 100
--- NOTE | 2021-01-31 13:51 | US ---
EXAMINATION TYPE: Transabdominal DATE OF EXAM: 01/31/2021 1:21 PM COMPARISON: NONE CLINICAL HISTORY: pain. Bleeding and cramping x 2 days EXAM PERFORMED: Transabdominal (TA) EXAM MEASUREMENTS: GESTATIONAL AGE / DATING Physician Established: Not Established Yet Dates by LMP (6 weeks/3 days) EDC: 09/23/2021 Dates by First Scan: This is 1st scan Dates by Current Scan for: No IUP seen at this time MATERNAL ANATOMY Uterus: 8.6 x 4.2 x 4.8cm, anteverted Right Ovary: wnl Left Ovary: wnl Post CDS / Adnexa: wnl Presence of free fluid: no Presence of corpus luteal cyst: left ovary: 1.2 x 1.3 x 1.2cm Presence of subchorionic bleed: no GESTATION / SURVEY IUP: No IUP seen at this time Date of LMP: 12/17/2020 Beta HcG (if available): 427.9 IMPRESSION: 1. No intrauterine is identified. This may represent a very early intrauterine . A lternatively, this may represent an ectopic or spontaneous in progress. Continued follow-up sonographic study and beta hCG are recommended. 2. Left corpus luteum cyst measuring 1.3 cm. 3. No free fluid.
--- NOTE | 2021-01-31 14:02 | ED ---
Female Urogenital HPI - General Chief complaint: Vaginal Bleeding Stated complaint: 6wks preg Abd Pain/Bleeding Time Seen by Provider: 01/31/21 12:10 Source: patient Mode of arrival: ambulatory Limitations: no limitations - History of Present Illness Initial comments: 30-year-old female presenting today for chief complaint of vaginal bleeding lower abdominal cramping. Patient states the past 3 days she has had vaginal bleeding like a period as well as cramping. Patient states she fell last week that she was . Patient states that she has no unilateral pain no presyncope no weakness. Patient denies severe pain or heavy heavy bleeding. rashmi ent on arrival appears well nontoxic in no acute distress. LMP 12/17/[address] Cotto Last Menstrual Period: 12/17/20 - Related Data Previous Rx's Medication Instructions Recorded Ibuprofen [Motrin] 600 mg PO Q8HR PRN #30 tab 10/21/19 Allergies Allergy/AdvReac Type Severity Reaction Status Date / Time Sulfa (Sulfonamide Allergy Dyspnea Verified 01/31/21 12:05 Antibiotics) Review of Systems ROS Statement: Those systems with pertinent positive or pertinent negative responses have been documented in the HPI. ROS Other: All systems not noted in ROS Statement are negative. Past Medical History Past Medical History: Asthma Additional Past Medical History / Comment(s): Mild intermittent asthma, ovarian cysts, cyclic vomiting, Scoliosis History of Any Multi-Drug Resistant Organisms: None Reported Past Surgical History: Adenoidectomy Additional Past Surgical History / Comment(s): Thyroidectomy Past Anesthesia/Blood Transfusion Reactions: No Reported Reaction Past Psychological History: Anxiety, Depression Past Alcohol Use History: Occasional Past Drug Use History: Marijuana - Past Family History Father Additional Family Medical History / Comment(s): Father committed suicide at age 25. Mother Additional Family Medical History / Comment(s): Mother is alive at age 47 and did have similar symptoms to her when she was in her 20s. She does have history of anxiety and depression and attempted suicide in the past. Brother(s) Additional Family Medical History / Comment(s): Patient has 1 brother with no major medical problems. Patient does not have any sisters. General Exam - General Exam Comments Initial Comments: General: The patient is awake and alert, in no distress Eye: Pupils are equal, round and reactive to light, extra-ocular movements are intact. No nystagmus. There is normal conjunctiva bilaterally. No signs of icterus. Ears, nose, mouth and throat: There are moist mucous membranes and no oral lesions. Neck: The neck is supple, there is no tenderness or JVD. Gastrointestinal: Soft, non-distended, non-tender abdomen without masses or organomegaly noted. There is no rebound or guarding present. : refused. Musculoskeletal: Normal ROM, no tenderness. Strength 5/5. Sensation intact. Radial and DP pulses equal bilaterally 2+. Neurological: A&O x 3. CN II-XII intact grossly, There are no obvious motor or sensory deficits. Coordination appears grossly intact. Speech is normal. Skin: Skin is warm and dry and no rashes or lesions are noted. Psychiatric: Cooperative, appropriate mood & affect, normal judgment. Limitations: no limitations Course Vital Signs 01/31/21 12:00 Temperature 97.9 F Pulse Rate 102 H Respiratory 18 Rate Blood Pressure 104/72 O2 Sat by Pulse 98 Oximetry Medical Decision Making - Medical Decision Making HgB stable. O+. pt HcG very low at 450, US no obvious findings. i feel likely miscarriage, but cannot r/o early /ecoptic. recommend serial hcg and re peat US this week. pt states she will call her OBGYN today to arrange this. I did provide patient a 48 hour hcg quant stat. patient is aware of return parameters and importance of f/u. Dr Caballero agreeable to care plan and discharge. - Lab Data Result diagrams: 01/31/21 12:51 01/31/21 12:51 Lab Results 01/31/21 01/31/21 01/31/21 Range/Units 12:51 12:51 12:51 WBC 6.9 (3.8-10.6) k/uL RBC 4.29 (3.80-5.40) m/uL Hgb 13.1 (11.4-16.0) gm/dL Hct 40.2 (34.0-46.0) % MCV 93.7 (80.0-100.0) fL MCH 30.5 (25.0-35.0) pg MCHC 32.6 (31.0-37.0) g/dL RDW 13.2 (11.5-15.5) % Plt Count 245 (150-450) k/uL MPV 6.8 Neutrophils % (Manual) 53 % Lymphocytes % (Manual) 33 % Monocytes % (Manual) 7 % Eosinophils % (Manual) 7 % Neutrophils # (Manual) 3.66 (1.3-7.7) k/uL Lymphocytes # (Manual) 2.28 (1.0-4.8) k/uL Monocytes # (Manual) 0.48 (0-1.0) k/uL Eosinophils # (Manual) 0.48 (0-0.7) k/uL Nucleated RBCs 0 (0-0) /100 WBC Manual Slide Review Performed RBC Morphology Normal PT 10.0 (9.0-12.0) sec INR 0.9 (<1.2) APTT 23.4 (22.0-30.0) sec Sodium 135 L (137-145) mmol/L Potassium 4.5 (3.5-5.1) mmol/L Chloride 101 (98-107) mmol/L Carbon Dioxide 28 (22-30) mmol/L Anion Gap 6 mmol/L BUN 14 (7-17) mg/dL Creatinine 0.61 (0.52-1.04) mg/dL Est GFR (CKD-EPI)AfAm >90 (>60 ml/min/1.73 sqM) Est GFR (CKD-EPI)NonAf >90 (>60 ml/min/1.73 sqM) Glucose 89 (74-99) mg/dL Calcium 9.3 (8.4-10.2) mg/dL Total Bilirubin 0.2 (0.2-1.3) mg/dL AST 18 (14-36) U/L ALT 9 (4-34) U/L Alkaline Phosphatase 37 L (38-126) U/L Total Protein 6.5 (6.3-8.2) g/dL Albumin 4.0 (3.5-5.0) g/dL HCG, Quant 427.9 mIU/mL Urine Color Urine Appearance (Clear) Urine pH (5.0-8.0) Ur Specific Roggen (1.001-1.035) Urine Protein (Negative) Urine Glucose (UA) (Negative) Urine Ketones (Negative) Urine Blood (Negative) Urine Nitrite (Negative) Urine Bilirubin (Negative) Urine Urobilinogen (<2.0) mg/dL Ur Leukocyte Esterase (Negative) Urine RBC (0-5) /hpf Urine WBC (0-5) /hpf Ur Squamous Epith Cells (0-4) /hpf Urine Bacteria (None) /hpf Urine Mucus (None) /hpf Blood Type Blood Type Recheck Bld Type Recheck Status Antibody Screen Spec Expiration Date 01/31/21 01/31/21 Range/Units 12:51 13:46 WBC (3.8-10.6) k/uL RBC (3.80-5.40) m/uL Hgb (11.4-16.0) gm/dL Hct (34.0-46.0) % MCV (80.0-100.0) fL MCH (25.0-35.0) pg MCHC (31.0-37.0) g/dL RDW (11.5-15.5) % Plt Count (150-450) k/uL MPV Neutrophils % (Manual) % Lymphocytes % (Manual) % Monocytes % (Manual) % Eosinophils % (Manual) % Neutrophils # (Manual) (1.3-7.7) k/uL Lymphocytes # (Manual) (1.0-4.8) k/uL Monocytes # (Manual) (0-1.0) k/uL Eosinophils # (Manual) (0-0.7) k/uL Nucleated RBCs (0-0) /100 WBC Manual Slide Review RBC Morphology PT (9.0-12.0) sec INR (<1.2) APTT (22.0-30.0) sec Sodium (137-145) mmol/L Potassium (3.5-5.1) mmol/L Chloride (98-107) mmol/L Carbon Dioxide (22-30) mmol/L Anion Gap mmol/L BUN (7-17) mg/dL Creatinine (0.52-1.04) mg/dL Est GFR (CKD-EPI)AfAm (>60 ml/min/1.73 sqM) Est GFR (CKD-EPI)NonAf (>60 ml/min/1.73 sqM) Glucose (74-99) mg/dL Calcium (8.4-10.2) mg/dL Total Bilirubin (0.2-1.3) mg/dL AST (14-36) U/L ALT (4-34) U/L Alkaline Phosphatase (38-126) U/L Total Protein (6.3-8.2) g/dL Albumin (3.5-5.0) g/dL HCG, Quant mIU/mL Urine Color Yellow Urine Appearance Clear (Clear) Urine pH 5.5 (5.0-8.0) Ur Specific Roggen 1.022 (1.001-1.035) Urine Protein Trace H (Negative) Urine Glucose (UA) Negative (Negative) Urine Ketones Negative (Negative) Urine Blood Large H (Negative) Urine Nitrite Negative (Negative) Urine Bilirubin Negative (Negative) Urine Urobilinogen <2.0 (<2.0) mg/dL Ur Leukocyte Esterase Trace H (Negative) Urine RBC 1 (0-5) /hpf Urine WBC 6 H (0-5) /hpf Ur Squamous Epith Cells 4 (0-4) /hpf Urine Bacteria Rare H (None) /hpf Urine Mucus Occasional H (None) /hpf Blood Type A Positive Blood Type Recheck No Previous Record Bld Type Recheck Status CABO Indicated Antibody Screen NEGATIVE Spec Expiration Date 02/03/2021 - 2350 Disposition Clinical Impression: Vaginal bleeding during , Threatened Disposition: HOME SELF-CARE Condition: Good Instructions (If sedation given, give patient instructions): Threatened Miscarriage (ED) Additional Instructions: Please use medication as discussed. Please follow-up with OBGYN in next week, repeat US in next week and repeat HCG levels in 48 hours (no sooner/later if possible). Please return to emergency room if the symptoms increase or worsen or for any other concerns. Is patient prescribed a controlled substance at d/c from ED?: No Referrals: Sukumar Giang MD [Primary Care Provider] - 1-2 days Time of Disposition: 14:01
[2021-01-31 14:09] LABS: Appearance,Urine Clear (Clear); Bacteria,Urine Rare /hpf; Bilirubin,Urine Negative (Negative); Blood,Urine Large (Negative); Color,Urine Yellow; Glucose,Urine (UA) Negative (Negative); Ketones,Urine Negative (Negative); Leukocyte Esterase,Urine Trace (Negative); Mucus,Urine Occasional /hpf; Nitrite,Urine Negative (Negative); PH, Urine 5.5 (5.0-8.0); Protein,Urine Trace (Negative); RBC,Urine 1 /hpf (0-5); Specific Gravity,Urine 1.022 (1.001-1.035); Squamous Epithelial Cell,Urine 4 /hpf (0-4); Urobilinogen,Urine <2.0 mg/dL (<2.0); WBC,Urine 6 /hpf (0-5)
== END 2021-01-31 14:16 | disposition home or self-care (01) ==
LOC: EC 11:50
DX: O20.0 Threatened abortion (principal); O99.511 Diseases of the respiratory system complicating pregnancy, first trimester; J45.909 Unspecified asthma, uncomplicated; Z3A.01 Less than 8 weeks gestation of pregnancy
CPT/HCPCS: 36415; 76801; 80053; 81001; 84702; 85025; 85610; 85730; 86850; 86900; 86901

== ENCOUNTER 2022-03-27 11:39 | Emergency (ER) | payer OTHER ==
[2022-03-27 11:47] VITALS: RESP 18
--- NOTE | 2022-03-27 13:36 | ED ---
General Adult HPI - General Chief complaint: Vaginal Bleeding Stated complaint: Miscarage, OB sent Time Seen by Provider: 03/27/22 13:08 Source: patient, RN notes reviewed Mode of arrival: ambulatory Limitations: no limitations - History of Present Illness Initial comments: This a 32-year-old female presents emergency Department chief complaint of vaginal bleeding early . Patient states she is A2 states is partially [address] Wong. Patient states that she did contact office in which they are better come emergency Department secondary to bleeding. She states she started spotting a few days ago which seemed to increase today. She states she's had episodic episodes of spotting, small clots. Denies any significant pain denies any nausea vomiting diarrhea constipation no fevers or chills no dysuria no other associated complaints. - Related Data Previous Rx's Medication Instructions Recorded Ibuprofen [Motrin] 600 mg PO Q8HR PRN #30 tab 10/21/19 Allergies Allergy/AdvReac Type Severity Reaction Status Date / Time Sulfa (Sulfonamide Allergy Dyspnea Verified 03/27/22 11:47 Antibiotics) Review of Systems ROS Statement: Those systems with pertinent positive or pertinent negative responses have been documented in the HPI. ROS Other: All systems not noted in ROS Statement are negative. Past Medical History Past Medical History: Asthma Additional Past Medical History / Comment(s): Mild intermittent asthma, ovarian cysts, cyclic vomiting, Scoliosis History of Any Multi-Drug Resistant Organisms: None Reported Past Surgical History: Adenoidectomy Additional Past Surgical History / Comment(s): Thyroidectomy Past Anesthesia/Blood Transfusion Reactions: No Reported Reaction Past Psychological History: Anxiety, Depression Smoking Status: Never smoker Past Alcohol Use History: Occasional Past Drug Use History: Marijuana - Past Family History Father Additional Family Medical History / Comment(s): Father committed suicide at age 25. Mother Additional Family Medical History / Comment(s): Mother is alive at age 47 and did have similar symptoms to her when she was in her 20s. She does have history of anxiety and depression and attempted suicide in the past. Brother(s) Additional Family Medical History / Comment(s): Patient has 1 brother with no major medical problems. Patient does not have any sisters. General Exam Limitations: no limitations General appearance: alert, in no apparent distress Head exam: Present: atraumatic, normocephalic, normal inspection Respiratory exam: Present: normal lung sounds bilaterally. Absent: respiratory distress, wheezes, rales, rhonchi, stridor Cardiovascular Exam: Present: regular rate, normal rhythm, normal heart sounds. Absent: systolic murmur, diastolic murmur, rubs, gallop, clicks GI/Abdominal exam: Present: soft, normal bowel sounds. Absent: distended, tenderness, guarding, rebound, rigid Back exam: Absent: CVA tenderness (R), CVA tenderness (L) Neurological exam: Present: alert Skin exam: Present: warm, dry, intact, normal color. Absent: rash Course Vital Signs 03/27/22 03/27/22 11:43 13:27 Temperature 98.7 F Pulse Rate 75 66 Respiratory 18 18 Rate Blood Pressure 109/61 95/62 O2 Sat by Pulse 95 99 Oximetry Medical Decision Making - Medical Decision Making Labs, ultrasound were performed. Patient has a positive blood type. Patient ultrasound reveals twin gestation with no comp eating fractures. Patient does have close follow-up with [facility]. Patient has threatened miscarriage patient was given return parameters. - Lab Data Result diagrams: 03/27/22 13:27 03/27/22 13:27 Lab Results 03/27/22 03/27/22 Range/Units 13:27 13:27 WBC 11.4 H (3.8-10.6) k/uL RBC 4.15 (3.80-5.40) m/uL Hgb 12.9 (11.4-16.0) gm/dL Hct 39.4 (34.0-46.0) % MCV 95.0 (80.0-100.0) fL MCH 31.0 (25.0-35.0) pg MCHC 32.7 (31.0-37.0) g/dL RDW 12.6 (11.5-15.5) % Plt Count 289 (150-450) k/uL MPV 7.2 Neutrophils % 66 % Lymphocytes % 22 % Monocytes % 5 % Eosinophils % 2 % Basophils % 1 % Neutrophils # 7.5 (1.3-7.7) k/uL Lymphocytes # 2.5 (1.0-4.8) k/uL Monocytes # 0.5 (0-1.0) k/uL Eosinophils # 0.2 (0-0.7) k/uL Basophils # 0.1 (0-0.2) k/uL Sodium 131 L (137-145) mmol/L Potassium 4.3 (3.5-5.1) mmol/L Chloride 103 (98-107) mmol/L Carbon Dioxide 22 (22-30) mmol/L Anion Gap 6 mmol/L BUN 11 (7-17) mg/dL Creatinine 0.51 L (0.52-1.04) mg/dL Est GFR (CKD-EPI)AfAm >90 (>60 ml/min/1.73 sqM) Est GFR (CKD-EPI)NonAf >90 (>60 ml/min/1.73 sqM) Glucose 78 (74-99) mg/dL Calcium 9.1 (8.4-10.2) mg/dL Disposition Clinical Impression: Twin , Threatened miscarriage in early Disposition: HOME SELF-CARE Condition: Stable Instructions (If sedation given, give patient instructions): Threatened Miscarriage (ED) Additional Instructions: Please return to the Emergency Department if symptoms worsen or any other concerns. Is patient prescribed a controlled substance at d/c from ED?: No Referrals: Parish Mcmullen MD [Primary Care Provider] - 1-2 days Time of Disposition: 14:41
[2022-03-27 14:06] LABS: African American GFR (CKD) >90 (>60 ml/min/1.73 sqM); Anion Gap 6 mmol/L; Blood Urea Nitrogen 11 mg/dL (7-17); Calcium 9.1 mg/dL (8.4-10.2); Carbon Dioxide 22 mmol/L (22-30); Chloride 103 mmol/L (98-107); Glucose 78 mg/dL (74-99); Non-African American GFR(CKD) >90 (>60 ml/min/1.73 sqM); Potassium 4.3 mmol/L (3.5-5.1); Sodium 131 mmol/L (137-145)
--- NOTE | 2022-03-27 14:25 | US ---
EXAMINATION TYPE: US OB <= 14 wk twins DATE OF EXAM: 03/27/2022 COMPARISON: NONE CLINICAL HISTORY: pain. Pt states on/off vaginal bleeding x 2 days EXAM PERFORMED: Transabdominal (TA) EXAM MEASUREMENTS: GESTATIONAL AGE / DATING Physician Established: Not yet established Dates by LMP: (6 weeks/2 days) EDC: 11/18/2022 Dates by First Scan: No previous this is first scan Dates by Current Scan for Baby A: (6 weeks/4 days) EDC: 11/16/2022 Dates by Current Scan for Baby B: (6 weeks/3 days) EDC: 11/17/2022 MATERNAL ANATOMY Uterus: 9.4 x 5.5 x 7.5 cm Right Ovary: 3.2 x 2.3 x 3.4 cm Left Ovary: 3.0 x 2.4 x 2.3 cm Post CDS / Adnexa: wnl Presence of free fluid: No Presence of corpus luteal cyst: Right Ovary= 2.1 x 1.8 x 1.8 cm, Left Ovary= 1.8 x 1.5 x 1.8 cm Presence of subchorionic bleed: No Presence of two separate gestational sacs: Yes GESTATION / SURVEY TWIN A CRL: 0.7 cm (6wks/4days) MSD: wnl Yolk Sac (normal less than 6mm): 2mm Heart Rate: 114 bpm Rhythm: Normal IUP: Viable IUP TWIN B CRL: 0.6 cm (6wks/3days) MSD: wnl Yolk Sac (normal less than 6mm): 3mm Heart Rate: 113 bpm Rhythm: Normal IUP: Viable IUP Date of LMP: 02/11/2022 Viable Twin gestation IMPRESSION: Viable twin gestation as discussed above.
[2022-03-27 14:35] LABS: Basophils # (A) 0.1 k/uL (0-0.2); Basophils % (A) 1 %; Eosinophils # (A) 0.2 k/uL (0-0.7); Eosinophils % (A) 2 %; HCT 39.4 % (34.0-46.0); HGB 12.9 gm/dL (11.4-16.0); Lymphocytes # (A) 2.5 k/uL (1.0-4.8); Lymphocytes % (A) 22 %; MCHC 32.7 g/dL (31.0-37.0); Mean Platelet Volume 7.2; Monocytes # (A) 0.5 k/uL (0-1.0); Monocytes % (A) 5 %; Neutrophils # (A) 7.5 k/uL (1.3-7.7); Neutrophils % (A) 66 %; Platelet Count 289 k/uL (150-450); RBC 4.15 m/uL (3.80-5.40); RDW 12.6 % (11.5-15.5); WBC 11.4 k/uL (3.8-10.6)
[2022-03-27 14:51] VITALS: BP 108/60; PULSE 70; TEMP 97.6
[2022-03-27 14:57] LABS: Appearance,Urine Cloudy (Clear); Bacteria,Urine Rare /hpf; Bilirubin,Urine Negative (Negative); Blood,Urine Negative (Negative); Color,Urine Yellow; Glucose,Urine (UA) Negative (Negative); Ketones,Urine 1+ (Negative); Leukocyte Esterase,Urine Moderate (Negative); Mucus,Urine Rare /hpf; Nitrite,Urine Negative (Negative); Protein,Urine Negative (Negative); RBC,Urine 2 /hpf (0-5); Specific Gravity,Urine 1.015 (1.001-1.035); Squamous Epithelial Cell,Urine 13 /hpf (0-4); Urobilinogen,Urine <2.0 mg/dL (<2.0); WBC,Urine 4 /hpf (0-5)
[2022-03-27 15:51] LABS: HCG,Quantitative Serum 72294.4 mIU/mL
== END 2022-03-27 14:53 | disposition home or self-care (01) ==
LOC: EC 11:39
DX: O20.0 Threatened abortion (principal); O30.001 Twin pregnancy, unspecified number of placenta and unspecified number of amniotic sacs, first trimester; J45.909 Unspecified asthma, uncomplicated; Z88.2 Allergy status to sulfonamides; Z3A.01 Less than 8 weeks gestation of pregnancy
CPT/HCPCS: 36415; 76801; 76802; 80048; 81001; 84702; 85025; 99284